=== PATIENT | male | born 1940 | race Caucasian/White ===

== ENCOUNTER 2016-08-06 10:54 | Inpatient (IN) | payer OTHER, MEDICARE ==
[2016-08-06] VITALS (17 sets, daily range): BP systolic 122–180; BP diastolic 58–85; PULSE 65–80; RESP 18–31; TEMP 97.9; O2SAT 94–99
[~2016-08-06] VITALS: Ht 177.8 cm; Wt 86.5 kg
[~2016-08-06 10:54] MED LIST: AMLO10 PO; ASPI81 PO; ATEN1TAB74 PO; FENO160T2 OR; GLIP5 PO; TERA5CAP34 PO; VENTAER INH
[2016-08-06] MEDS ORDERED: SODIUM CHLOR 0.9% 1000 ML INJ 1,000 ML IV ONE (11:05)
--- NOTE | 2016-08-06 11:09 | PD ---
HPI Chief Complaint: stroke alert Time Seen by Provider: 11:02 Travel History International Travel<30 days: No Contact w/Intl Traveler<30days: No Traveled to known affect area: No History of Present Illness HPI This is a 75-year-old male with a history of BPH, hypertension, diabetes mellitus, who presents here as a stroke alert. The patient was last seen between 9929 normal. The patient presents today with a right sided facial droop with dysarthria. There is no extremity weakness. There are no other reported deficits. 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) Glaucoma: No Genitourinary: Yes (ENLARGED PROSTATE) Headaches: Yes (STRESS MIGRAINES) Hepatitis: No Hiatal Hernia: No Hypertension: Yes Immune Disorder: No Kidney Stones: No Musculoskeletal: Yes (RECENT FALL/ TRAUMA--BACK PAIN/ RT SHOULDER PAIN) Neurologic: No Psychiatric: No Reproductive: Yes (vasectomy) Respiratory: Yes (SLEEP APNEA/ CPAP) Immunizations Current: Yes Myocardial Infarction: No Radiation Therapy: No Renal Failure: No Seizures: No Sickle Cell Disease: No Sleep Apnea: Yes Past Surgical History Abdominal Surgery: Yes (APPENDECTOMY) AICD: No Appendectomy: Yes (1982) Cardiac Surgery: No Ear Surgery: No Endocrine Surgery: No Eye Surgery: No Genitourinary Surgery: Yes (VASECTOMY, CYST REMOVED) Gynecologic Surgery: No Joint Replacement: No Oral Surgery: No Pacemaker: No Thoracic Surgery: No Other Surgery: Yes (right wrist plate in placed) Social History Alcohol Use: No Tobacco Use: No (NEVER) Substance Use: No Allergies-Medications (Allergen,Severity, Reaction): Coded Allergies: Codeine (Verified Allergy, Severe, Rash, 05/05/15) DENIES ALLERGY 07/05/12 Verapamil (Unverified Allergy, Severe, causes ileus, 05/05/15) Reported Meds & Prescriptions Reported Meds & Active Scripts Active Reported Trulicity Inj (Dulaglutide Inj) 0.75 Mg/0.5 Ml Pen 0.75 Mg SQ Q7D Bydureon Pen Inj (Exenatide) 2 Mg Pfpen 2 Mg SQ Q7D Aspirin 81 Mg Chew 81 Mg CHEW DAILY Enalapril (Enalapril Maleate) 20 Mg Tab 20 Mg PO BID Terazosin (Terazosin HCl) 5 Mg Cap 5 Mg PO HS Atenolol 50 Mg Tab 50 Mg PO BID Glipizide 10 Mg Tab 10 Mg PO BIDAC Take 30 minutes before a meal Amlodipine (Amlodipine Besylate) 10 Mg Tab 10 Mg PO DAILY Fenofibrate 160 Mg Tab 160 Mg PO DAILY Review of Systems Except as stated in HPI: all other systems reviewed are Neg General / Constitutional: No: Fever, Chills HENT: No: Headaches, Neck Pain Cardiovascular: No: Chest Pain or Discomfort, Syncope Respiratory: No: Cough, Shortness of Breath Gastrointestinal: No: Nausea, Vomiting, Abdominal Pain Musculoskeletal: No: Limited ROM, Pain Neurologic: Positive: Other (right sided facial droop with dysarthria), No: Syncope, Headache, Incontinence, Seizures Physical Exam Narrative GENERAL: Well-developed well-nourished male in no acute respiratory distress. SKIN: Focused skin assessment warm/dry. HEAD: Atraumatic. Normocephalic. EYES: No scleral icterus. No injection or drainage. ENT: No nasal bleeding or discharge. Mucous membranes pink and moist. Patient has obvious right sided facial droop. NECK: Trachea midline. Supple. CARDIOVASCULAR: Regular rate and rhythm. No murmur appreciated. RESPIRATORY: No accessory muscle use. Clear to auscultation. Breath sounds equal bilaterally. GASTROINTESTINAL: Abdomen soft, non-tender, nondistended. Hepatic and splenic margins not palpable. MUSCULOSKELETAL: No obvious deformities. No clubbing. No cyanosis. No edema. NEUROLOGICAL: Awake and alert. Right sided facial droop. There is dysarthria/ difficulty speaking. The patient has no weakness in his bilateral upper and lower extremities. Data Data Last Documented VS Vital Signs Date Time Temp Pulse Resp B/P Pulse Ox O2 Delivery O2 Flow Rate FiO2 08/06/16 11:25 75 18 160/70 98 Nasal Cannula 2 08/06/16 11:05 97.9 Orders Diet Npo (08/06/16 Lunch) Activity Bed Rest (08/06/16 ) Electrocardiogram (08/06/16 ) I-Stat Creatinine (08/06/16 11:05) I-Stat Profile (08/06/16 11:05) Prothrombin Time / Inr (Pt) (08/06/16 11:05) Act Partial Throm Time (Ptt) (08/06/16 11:05) Complete Blood Count With Diff (08/06/16 11:05) Fibrinogen (08/06/16 11:05) Creatine Kinase (Cpk) (08/06/16 11:05) Troponin I (08/06/16 11:05) Ua Includes Microscopic (08/06/16 11:05) Drug Screen, Random Urine (08/06/16 11:05) Type And Screen (08/06/16 11:05) Ct Brain W/O Iv Contrast(Rout) (08/06/16 ) Consult Neurology (08/06/16 ) Blood Glucose (08/06/16 11:05) Ecg Monitoring (08/06/16 11:05) Neuro Checks Q2HX12,Q4H (08/06/16 11:05) Nursing Bedside Swallow Assess .ONCE (08/06/16 11:05) Iv Access Insert/Monitor (08/06/16 11:05) NPO (08/06/16 11:05) Oximetry (08/06/16 11:05) Oxygen Administration (08/06/16 11:05) Sodium Chlor 0.9% 1000 Ml Inj (Ns 1000 M (08/06/16 11:05) Resp Oxygen Manas C Titrat 1-4 L (08/06/16 11:05) Cath For Specimen (08/06/16 11:05) (Hub Use Only)Inp Phy Cons/Ref (08/06/16 ) ^ Call Pharmacy (08/06/16 11:13) Nih Stroke Scale - Nihss .ONCE (08/06/16 11:13) Urinary Catheter Insert/Apply (08/06/16 11:13) Anticoagulant Alert (08/06/16 11:13) ^ Post Infusion Restrictions (08/06/16 11:13) ^ Medication Alert (08/06/16 11:13) Vital Signs (Adult) .As directed (08/06/16 11:13) Notify Dr: Blood Pressure (08/06/16 11:13) ^ Medication Alert (08/06/16 11:13) Alteplase Bolus (Activase Bolus) (08/06/16 11:15) Alteplase Drip (Activase Drip) (08/06/16 11:15) Sodium Chloride 0.9% Inj (Ns Inj) (08/06/16 11:15) [facility] Nursing Information (08/06/16 11:15) Resp Oxygen Manas C Titrat 1-4 L (08/06/16 ) Admit Order (Ed Use Only) (08/06/16 11:32) Labs Laboratory Tests Test 08/06/16 10:57 White Blood Count 8.3 TH/MM3 Red Blood Count 5.23 MIL/MM3 Hemoglobin 14.6 GM/DL Bedside Hemoglobin 14.3 G/DL Hematocrit 42.7 % Bedside Hematocrit 42.0 % Mean Corpuscular Volume 81.7 FL Mean Corpuscular Hemoglobin 28.0 PG Mean Corpuscular Hemoglobin 34.3 % Concent Red Cell Distribution Width 14.7 % Platelet Count 250 TH/MM3 Mean Platelet Volume 8.1 FL Neutrophils (%) (Auto) 67.9 % Lymphocytes (%) (Auto) 24.1 % Monocytes (%) (Auto) 6.3 % Eosinophils (%) (Auto) 1.3 % Basophils (%) (Auto) 0.4 % Neutrophils # (Auto) 5.6 TH/MM3 Lymphocytes # (Auto) 2.0 TH/MM3 Monocytes # (Auto) 0.5 TH/MM3 Eosinophils # (Auto) 0.1 TH/MM3 Basophils # (Auto) 0.0 TH/MM3 CBC Comment DIFF FINAL Differential Comment Prothrombin Time 10.0 SEC Prothromb Time International 0.9 RATIO Ratio Activated Partial 24.1 SEC Thromboplast Time Fibrinogen 383 mg/dL Bedside Sodium 139 MMOL/L Bedside Potassium 3.9 MMOL/L Bedside Chloride 104 MMOL/L Bedside Blood Urea Nitrogen 17 MG/DL Bedside Creatinine 1.0 MG/DL Bedside Glucose 352 MG/DL Hemoglobin A1c 11.9 % Total Creatine Kinase 79 U/L Troponin I LESS THAN 0.02 NG/ML Blood Type O POSITIVE Antibody Screen NEGATIVE Blood Bank Comment [facility] Medical Screen Exam Complete: Yes Emergency Medical Condition: Yes Differential Diagnosis CVA versus Nguyen's palsy versus medical management Narrative Course 75-year-old male presents as a stroke alert. Patient was last seen at between 9 and 9:30. Patient presented with right facial droop and dysarthria. The patient's CT scan was negative and he met criteria for TPA. After informed consent with Dr. Weeks, the patient was given TPA. He'll be admitted to the ICU. The case was discussed with Dr. Farias, biomedical electronics technician. Critical Care Narrative Aggregate critical care time was 60 minutes. Time to perform other separately billable procedures was not included in the critical care time. My time did not include minutes spent treating any other patients simultaneously or on activities that did not directly contribute to the patient's treatment. The services I provided to this patient were to treat and/or prevent clinically significant deterioration that could result in: I provided critical care services requiring my management, as noted below: Chart data review, documentation time, medication orders and management, vital sign assessments/reviewing monitor data, ordering and reviewing lab tests, ordering and interpreting/reviewing x-rays and diagnostic studies, care of the patient and discussion of the patient with the admitting physicians. Stroke Alert NIHSS NIH Stroke Scale Result: 5 NIHSS Time Completed: 10:54 Diagnosis Diagnosis: Primary Impression: Acute CVA (cerebrovascular accident) Additional Impressions: Hypertension Qualified Code: I10 - Essential hypertension Diabetes mellitus Qualified Code: E11.8 - Type 2 diabetes mellitus with complication, with long- term current use of insulin BPH (benign prostatic hyperplasia) Qualified Code: N40.0 - Benign prostatic hyperplasia, presence of lower urinary tract symptoms unspecified Dyslipidemia Admitting Physician Requests: Admit Aaron Sweeney MD Aug 06, 2016 11:09
[2016-08-06] MEDS ORDERED: ALTEPLASE DRIP IV ONE (11:15)
[2016-08-06] MEDS ORDERED: SODIUM CHLORIDE 0.9% 50 ML BAG IVF ONE (11:15)
[2016-08-06] MEDS ORDERED: MISCELLANEOUS NURSING INFORMATION XX PRN (11:15)
[2016-08-06] MEDS ORDERED: ALTEPLASE BOLUS 9 MG/9 ML SYR IV ONE (11:15)
--- NOTE | 2016-08-06 11:16 | RADRPT ---
EXAM DATE/TIME: 08/06/2016 11:07 [facility] COMPARISON: No previous studies available for comparison. INDICATIONS : Right facial droop RADIATION DOSE: 38.71 CTDIvol (mGy) The results were personally relayed by Dr. Adams Garcia to Dr. Ash Weeks at 11: 07 AM. While the patient was in the scanner MEDICAL HISTORY : Diabetes mellitus type 2. Hypertension. SURGICAL HISTORY : None. ENCOUNTER: Initial ACUITY: 1 day PAIN SCALE: 0/10 LOCATION: cranial TECHNIQUE: Multiple contiguous axial images were obtained of the head. Using automated exposure control and adj ustment of the mA and/or kV according to patient size, radiation dose was kept as low as reasonably a chievable to obtain optimal diagnostic quality images. FINDINGS: CEREBRUM: The ventricles are normal for age. No evidence of midline shift, mass lesion, hemorrhage or acute in farction. No extra-axial fluid collections are seen. POSTERIOR FOSSA: The cerebellum and brainstem are intact. The 4th ventricle is midline. The cerebellopontine angle i s unremarkable. EXTRACRANIAL: The visualized portion of the orbits is intact. SKULL: The calvaria is intact. No evidence of skull fracture. CONCLUSION: 1. No acute intracranial abnormality. Leif Garcia MD on August 06, 2016 at 11:13 Board Certified Radiologist. This report was verified electronically.
[2016-08-06 11:20] LABS: I-STAT POTASSIUM 3.9 MMOL/L (3.5-4.9); I-STAT SODIUM 139 MMOL/L (138-146)
[2016-08-06 11:24] LABS: AUTOMATED NEUTROPHIL # 5.6 TH/MM3 (1.8-7.7); BASOPHIL % 0.4 % (0.0-2.0); EOSINOPHIL # 0.1 TH/MM3 (0-0.4); EOSINOPHIL % 1.3 % (0.0-4.0); HEMATOCRIT 42.7 % (39.0-51.0); HEMO FLAGS DIFF FINAL; LYMPH % 24.1 % (9.0-44.0); MEAN CELL VOLUME 81.7 FL (80.0-100.0); MEAN CORPUSCULAR HGB CONC 34.3 % (32.0-36.0); MONO % 6.3 % (0.0-8.0); NEUT % 67.9 % (16.0-70.0); PLATELET COUNT 250 TH/MM3 (150-450); RED BLOOD COUNT 5.23 MIL/MM3 (4.50-5.90); RED CELL DISTRIBUTION WIDTH 14.7 % (11.6-17.2); WHITE BLOOD COUNT 8.3 TH/MM3 (4.0-11.0)
[2016-08-06 11:27] LABS: APTT (PATIENT) 24.1 SEC (24.3-30.1); INTERNATIONAL NORMALIZED RATIO 0.9 RATIO
[2016-08-06] MEDS: SODIUM CHLOR 0.9% 1000 ML INJ 1,000 ML IV SCH (11:37)
[2016-08-06 11:38] LABS: CREATINE KINASE 79 U/L (39-308)
[2016-08-06] MEDS ORDERED: FENO160T PO (11:43)
[2016-08-06] MEDS ORDERED: ENAL20TA PO (11:43)
[2016-08-06] MEDS ORDERED: ASPI81CH CHEW (11:43)
[2016-08-06] MEDS ORDERED: TERA5CAP3 PO (11:43)
[2016-08-06] MEDS ORDERED: ATEN50TA PO (11:43)
[2016-08-06] MEDS ORDERED: DULA10IN SQ (11:43)
[2016-08-06] MEDS ORDERED: EXEN1INJ SQ (11:43)
[2016-08-06] MEDS ORDERED: GLIP10TA6 PO (11:43)
[2016-08-06] MEDS ORDERED: AMLO10TA2 PO (11:43)
[2016-08-06] MEDS ORDERED: CLEVIDIPINE INJ 50 ML IV SCH (11:45)
[2016-08-06] MEDS ORDERED: LABETALOL HCL 100 MG/20 ML VIAL IV PRN (11:45)
[2016-08-06] MEDS ORDERED: NITROGLYCERIN 2% OINT 1 GM PACKET TOPICAL PRN (11:45)
[2016-08-06] MEDS ORDERED: hydrALAZINE HCL 20 MG/ML VIAL IV PUSH PRN (11:45)
--- NOTE | 2016-08-06 11:52 | HHI.HP ---
HPI Service Critical Care Medicine Primary Care Physician Unknown Admission Diagnosis Acute CVA, Diabetes mellitus, HTN, Diagnosis: (1) Facial droop due to stroke Diagnosis: Principal (2) Dysarthria Diagnosis: Principal (3) Migraine headache Diagnosis: Secondary (4) Hypertension Diagnosis: Principal (5) Dyslipidemia Diagnosis: Principal (6) Obesity Diagnosis: Principal (7) Obstructive sleep apnea Diagnosis: Principal (8) Diabetes mellitus Diagnosis: Principal (9) Hyperglycemia Diagnosis: Principal (10) BPH (benign prostatic hyperplasia) Diagnosis: Principal Chief Complaint: Right facial droop/dysarthria Travel History International Travel<30 Days: No Contact w/Intl Traveler <30 Da: No Traveled to Known Affected Are: No History of Present Illness This is a 75-year-old male. Date of admission 08/06/2016. Past medical history includes diabetes mellitus, hypertension, migraine headache, obstructive sleep apnea on CPAP, BPH, dyslipidemia. He is a Jehovah witness. He presents to [facility] on 08/06 with an acute onset right-sided facial droop /dysarthria at home. He also noticed some paresthesias on his left cheek below the eye. Stroke alert was called. NIH score was 5 for facial droop, dysarthria paresthesias. Laboratory significant for blood sugar 352. Initial CT head revealed no acute intracranial findings. Neurology was notified/Dr. Weeks and alteplase 7.9 mg bolus followed by 71.1 mg provided. MRI/A of brain and carotid Dopplers On presentation, patient does have no visual field cut, obvious right facial droop with dysarthria and left facial numbness. No cerebellar or posterior circulation signs. Review of Systems Constitutional: COMPLAINS OF: Weight loss, DENIES: Fatigue, Fever, Weight gain Endocrine: COMPLAINS OF: Polyuria, DENIES: Polydipsia Eyes: DENIES: Blurred vision, Eye pain, Vision loss Ears, nose, mouth, throat: DENIES: Tinnitus, Hearing loss Respiratory: DENIES: Sputum production, Shortness of breath Cardiovascular: DENIES: Chest pain Gastrointestinal: DENIES: Abdominal pain Genitourinary: DENIES: Urgency Musculoskeletal: COMPLAINS OF: Joint pain, DENIES: Back pain Integumentary: DENIES: Nail changes Hematologic/lymphatic: DENIES: Bruising Immunologic/allergic: DENIES: Eczema Neurologic: COMPLAINS OF: Localized weakness, Speech Problems Psychiatric: DENIES: Confusion, Depression Past Family Social History Allergies: Coded Allergies: Codeine (Verified Allergy, Severe, Rash, 05/05/15) DENIES ALLERGY 07/05/12 Verapamil (Unverified Allergy, Severe, causes ileus, 05/05/15) Past Medical History Migraine headache Hypertension Obesity BPH Obstructive sleep apnea on CPAP Diabetes mellitus Dyslipidemia Past Surgical History Appendectomy Vasectomy/cyst Right wrist plate Reported Medications Terazosin 5 mg by mouth daily Atenolol 50 mill grams by mouth twice a day Norvasc 10 mg by mouth daily Enalapril 20 mg by mouth twice a day Fenofibrate 160 mg by mouth daily Trulicity 0.75 mg subcutaneous every 7 days Aspirin 81 mg by mouth daily Glipizide 10 mg by mouth twice a day Bydurean 2 mg subcutaneous every 7 days Active Ordered Medications Reviewed in EMR Family History Brother age 65 of [place]. One brother with PFO One sister with atrial fibrillation Positive cancer Social History No tobacco, alcohol or IV drug use Physical Exam Vital Signs Vital Signs Date Time Temp Pulse Resp B/P Pulse Ox O2 Delivery O2 Flow Rate FiO2 08/06/16 11:40 75 18 157/73 98 08/06/16 11:25 75 18 160/70 98 Nasal Cannula 2 08/06/16 11:19 97 Nasal Cannula 08/06/16 11:19 77 18 160/70 97 2 08/06/16 11:08 80 97 Room Air 08/06/16 11:05 97.9 80 18 177/85 97 Physical Exam GENERAL: 75-year-old male, critically ill currently resting in bed in no acute distress SKIN: Warm and dry. No rash HEAD: Atraumatic. Normocephalic. EYES: Pupils equal and round about 3 mm bilaterally and reactive. No scleral icterus. No injection or drainage. ENT: No nasal bleeding or discharge. Mucous membranes pink and moist. NECK: Trachea midline. No JVD. CARDIOVASCULAR: Regular rate and rhythm. S1, S2. No S4. RESPIRATORY: No accessory muscle use. Clear to auscultation. Breath sounds equal bilaterally. GASTROINTESTINAL: Abdomen soft, non-tender, nondistended. Hepatic and splenic margins not palpable. MUSCULOSKELETAL: Extremities without skin peripheral edema. No obvious deformities. NEUROLOGICAL: Awake and alert. Cranial nerve VII deficit. Right facial droop/ left skin paresthesias below the eye. Motor grossly within normal limits bilateral upper lower extremity's. No dysdiadochokinesis or dysmentia. No pronator drift. Normal [id number] bilaterally. DTRs equal and symmetric bilaterally. Gait was not assessed. Slurred speech. PSYCHIATRIC: Appropriate mood and affect; insight and judgment normal. Laboratory Laboratory Tests Test 08/06/16 10:57 White Blood Count 8.3 Red Blood Count 5.23 Hemoglobin 14.6 Bedside Hemoglobin 14.3 Hematocrit 42.7 Bedside Hematocrit 42.0 Mean Corpuscular Volume 81.7 Mean Corpuscular Hemoglobin 28.0 Mean Corpuscular Hemoglobin 34.3 Concent Red Cell Distribution Width 14.7 Platelet Count 250 Mean Platelet Volume 8.1 Neutrophils (%) (Auto) 67.9 Lymphocytes (%) (Auto) 24.1 Monocytes (%) (Auto) 6.3 Eosinophils (%) (Auto) 1.3 Basophils (%) (Auto) 0.4 Neutrophils # (Auto) 5.6 Lymphocytes # (Auto) 2.0 Monocytes # (Auto) 0.5 Eosinophils # (Auto) 0.1 Basophils # (Auto) 0.0 CBC Comment DIFF FINAL Differential Comment Prothrombin Time 10.0 Prothromb Time International 0.9 Ratio Activated Partial 24.1 Thromboplast Time Fibrinogen 383 Bedside Sodium 139 Bedside Potassium 3.9 Bedside Chloride 104 Bedside Blood Urea Nitrogen 17 Bedside Creatinine 1.0 Bedside Glucose 352 Total Creatine Kinase 79 Troponin I LESS THAN 0.02 Result Diagram: 08/06/16 1057 Imaging Last Impressions Head CT 08/06/16 0000 Signed Impressions: Service Date/Time: July 11:07 - CONCLUSION: 1. No acute intracranial abnormality. Leif Garcia MD Assessment and Plan Assessment and Plan Neuro/Psych: Likely CVA Right facial droop/dysarthria History of migraine headache Dr. Weeks/neurology following Status post alteplase and 0.9 mg in ED followed by 71.1 mg On admission revealed no acute intracranial findings. No CTA head secondary to NIH score of less than 6 on arrival MRI/MRA brain along with carotid Dopplers ordered for today Neurochecks per protocol Goal to keep systolic blood pressure less than 180/diastolic less than 105 status post alteplase Lipid panel, hemoglobin A1c pending Echocardiogram ordered Follow-up head CT 24 hours post alteplase 1125 6/23 or earlier if indicated PT/OT/ST evaluate and treat CV: Hypertension Dyslipidemia Goal keep systolic blood pressure less than 180, diastolic blood pressure less than 105 status post alteplase As needed labetalol 10 mg every hour/hydralazine 10 every hour and Cleviprex drip written Noted allergy to verapamil/no Cardene 2-D echocardiogram ordered Lipid panel ordered Home medications atenolol 50 mg twice a day, Norvasc, 10 mg daily, enalapril 20 mg twice a day for hypertension along with Terazosin 5 mill grams by mouth daily Home medication fenofibrate 160 mg by mouth daily for dyslipidemia Holding baby aspirin 81 mg daily status post alteplase 24 hours. Resp: Obstructive sleep apnea on CPAP at night Family to bring in machine overnight. Settings of 4 Nasal cannula to maintain saturations greater than equal to 90% Incentive spirometry while awake GI: Currently nothing by mouth Protonix for GI prophylaxis Gena-Colace for bowel regimen : BPH Barajas catheter if indicated Holding terazosin 5 mill grams by mouth daily for BPH Endo: Diabetes mellitus Hyperglycemia Will hold long-acting insulins including trulicity 0.75 mg every 7 days and Bydurean 2 mill grams subcutaneous every 7 days Holding glipizide 10 mg by mouth twice a day Sliding-scale insulin to maintain euglycemia Renal: Monitor urine output Accurate I's and O's Follow BMP in a.m. Heme: CBC/coags within normal limits Recheck in a.m. status post alteplase ID: Monitor for infection/fever/elevated WBC FEN: Replace electrolytes as clinically indicated MSK: PT/OT/ST evaluate and treat Access - Utilize peripheral IV. Central line if indicated Prophylaxis - GI - Protonix - DVT - SCD/pharmacological prophylaxis contraindicated status post alteplase Level III admit Code Status Full code Discussed Condition With Dr. Sweeney/ED physician. Patient. Care plan discussed and all questions answered. Problem Qualifiers (1) Migraine headache: Qualified Code: G43.909 - Migraine without status migrainosus, not intractable , unspecified migraine type (2) Hypertension: Qualified Code: I10 - Essential hypertension (3) Obesity: (4) Diabetes mellitus: Qualified Code: E11.8 - Type 2 diabetes mellitus with complication, with long- term current use of insulin (5) BPH (benign prostatic hyperplasia): Qualified Code: N40.0 - Benign prostatic hyperplasia, presence of lower urinary tract symptoms unspecified Johnathan Farias MD Aug 06, 2016 11:52
[2016-08-06] MEDS ORDERED: SODIUM CHLORIDE 0.9% FLUSH 5 ML FLUSH IV FLUSH PRN (12:00)
[2016-08-06] MEDS ORDERED: ACETAMINOPHEN 325 MG TAB PO PRN (12:00)
[2016-08-06] MEDS ORDERED: LACTULOSE SYRUP 20 GM/30 ML CUP PO PRN (12:00)
[2016-08-06] MEDS ORDERED: MAGNESIUM HYDROXIDE SUSP 30 ML CUP PO PRN (12:00)
[2016-08-06] MEDS ORDERED: GLUCAGON 1 MG/ML VIAL OTHER PRN ×2 (12:00)
[2016-08-06] MEDS ORDERED: MISCELLANEOUS NURSING INFORMATION XX SCH (12:00)
[2016-08-06] MEDS ORDERED: RESP: ALBUTEROL 2.5 MG/3 ML NEB (PRN) INH (12:00)
[2016-08-06] MEDS ORDERED: SENNOSIDES 8.6 MG TAB PO PRN (12:00)
[2016-08-06] MEDS ORDERED: DEXTROSE 50% IN WATER 50 ML VIAL(D50) IV PUSH PRN (12:00)
[2016-08-06] MEDS ORDERED: SODIUM CHLORIDE 0.9% FLUSH 10 ML FLUSH IV FLUSH PRN (12:00)
[2016-08-06] MEDS ORDERED: ONDANSETRON HCL 4 MG/2 ML VIAL IV PRN (12:00)
[2016-08-06] MEDS ORDERED: BISACODYL 10 MG SUPP RECTAL PRN (12:00)
[2016-08-06] MEDS ORDERED: CHLORHEXIDINE GLUCONATE 2 % 1 PACK (2 CLOTHS) TOP PRN (12:00)
--- NOTE | 2016-08-06 12:12 | MB ---
cc: IVORY MONACO M.D. DATE OF CONSULTATION 08/06/2016 REASON FOR CONSULTATION Stroke alert HISTORY OF PRESENT ILLNESS Mr. Mendez is a very pleasant 75-year-old right-handed man who has a history of diabetes who was in his usual state of good health until around on 9:30 this morning when he acutely developed right facial weakness and severe slurred speech. He did not have any weakness of the arms or leg. He called 9-- immediately and a stroke alert was called in the field. He was brought immediately to the ER. He has had no changes in his symptoms since presentation. He denies any previous history of stroke or TIA symptoms. He states he does not take any anticoagulation. He only takes a low-dose aspirin 81 mg daily. PAST MEDICAL HISTORY 1. History of hypertension. 2. History of diabetes. 3. BPH 4. Appendectomy 5. Vasectomy MEDICATIONS Medications at home are: 1. Glipizide 5 mg b.i.d. 2. Fenofibrate 160 mg daily 3. Aspirin 81 mg daily 4. Hytrin 5 mg daily 5. Tenormin 50- daily 6. Norvasc 10 mg daily NEUROLOGIC EXAMINATION Blood pressure 177/85, pulse 80, respiratory rate is 18, temperature 97.9 degrees. Higher cortical function, he is alert. His speech is very dysarthric, but not aphasic. He can follow commands. Cranial nerves: He has got a right upper motor neuron VII palsy. The extraocular movements are normal. The pupils equal and reactive. Tongue protrudes midline. On motor exam, he has got 5/5 strength of all groups in both upper and lower extremities. There is no drift. Fine motor skills are normal. Reflexes 2+ and symmetric. CT of the brain, no acute change. LABORATORY DATA Currently pending, his glucose was over 300. IMPRESSION Acute left hemisphere stroke. The patient in a candidate for IV tPA. He is within the time frame. His NIH stroke scale is 5. I discussed the pros and cons of tPA with the patient including a 6% chance of hemorrhage. Patient understands the risks and benefits and states that he does wish to proceed with tPA and he does want us to administer it. Therefore would recommend starting IV tPA per protocol. Because of the relative low NIH stroke scale, he is not a candidate for evaluation for intervention, therefore, we do not need to proceed with a stat CTA at the present time. We will continue the post TPA monitoring, monitoring the blood pressure very carefully and neuro checks. No antiplatelets or anticoagulants for 24 hours post tPA. We will check CT of the brain 24 is post tPA and also further evaluation with an MRI/MRA brain, carotid ultrasound, echocardiogram and monitor cardiac telemetry and also check lipid panel. MD MICHELLE Dudley/CARLOS /11:22 AM /12:06 PM
--- NOTE | 2016-08-06 12:39 | RADRPT ---
EXAM DATE/TIME: 08/06/2016 12:02 [facility] COMPARISON: No previous studies available for comparison. INDICATIONS : Cerebrovascular accident. MEDICAL HISTORY : Hypertension. Stress migraines. Chest pain. Sleep apnea. Dyspnea. Verapimil induced ilius. Enlarg ed prostate. Diabetes. Anxiety. SURGICAL HISTORY : Appendectomy. Vasectomy. Right wrist with plate. ENCOUNTER: Initial ACUITY: 1 day PAIN SCORE: 0/10 LOCATION: Bilateral neck PEAK SYSTOLIC VELOCITIES (cm/sec): ICA/CCA RATIO: Right: 1.2 Left: 1.1 ICA: Right: 113 Left: 79 CCA: Right: 94 Left: 70 ECA: Right: 100 Left: 124 VERTEBRAL: Right: 52 antegrade Left: 48 antegrade Elevated flow velocities and ICA/CCA ratios have been found to correlate with increased degrees of vessel stenosis, calculated as percentage of diameter relative to a normal segment of distal ICA/CCA FINDINGS: RIGHT CAROTID: No significant stenosis is visualized. There is mild calcified plaque in the carotid bulb. The wavef orms are within normal limits. LEFT CAROTID: No significant stenosis is visualized. There is mild calcified plaque in the carotid bulb. The wavef orms are within normal limits. VERTEBRAL ARTERIES: Antegrade flow is seen in both vertebral arteries. MISCELLANEOUS: None. CONCLUSION: 1. Mild calcified plaque in the carotid bulbs bilaterally. No significant stenosis is present within either internal carotid artery. 2. There is antegrade flow within both vertebral arteries. Jevon Anaya MD on August 06, 2016 at 12:34 Board Certified Radiologist. This report was verified electronically.
--- NOTE | 2016-08-06 14:24 | EKG ---
Date Performed: 08/06/2016 Time Performed: 11:19:56 PTAGE: 75 years EKG: Sinus rhythm WITH OCCASIONAL SUPRAVENTRICULAR PREMATURE COMPLEXES RIGHT BUNDLE BRANCH BLOCK ABNORMAL ECG Compared to PREVIOUS TRACING , the right bundle branch block is new and the PACs are new. PREVIOUS TR ACIN07/06/2012 10.16 DOCTOR: Tiffany Haider Interpretating Date/Time 08/06/2016 14:23:45
[2016-08-06] MEDS: ACETAMINOPHEN 1000 MG/100 ML VIAL IV PRN (14:37)
--- NOTE | 2016-08-06 15:27 | ECHRPT ---
Indication: CVA CONCLUSIONS Normal left ventricular size and wall thickness. The left ventricular systolic function is normal with an estimated ejection fraction in the range of 55-60%. Trace aortic valve regurgitation. There is trace tricuspid valve regurgitation. BP: 160 / 70 HR: 77 Rhythm: MEASUREMENTS (Male / Female) Normal Values Technical Quality: 2D ECHO LV Diastolic Diameter PLAX 4.8 cm 4.2 - 5.9 / 3.9 - 5.3 cm LV Systolic Diameter PLAX 3.6 cm IVS Diastolic Thickness 1.4 cm 0.6 - 1.0 / 0.6 - 0.9 cm LVPW Diastolic Thickness 1.3 cm 0.6 - 1.0 / 0.6 - 0.9 cm LV Relative Wall Thickness 0.6 RV Internal Dim ED PLAX 3.0 cm M-MODE Aortic Root Diameter MM 4.4 cm LA Systolic Diameter MM 4.4 cm LA Ao Ratio MM 1.0 AV Cusp Separation MM 2.4 cm DOPPLER Mitral E Point Velocity 70.1 cm/s Mitral A Point Velocity 79.0 cm/s Mitral E to A Ratio 0.9 LV E' Lateral Velocity 8.7 cm/s Mitral E to LV E' Lateral Ratio 8.1 LV E' Septal Velocity 8.2 cm/s Mitral E to LV E' Septal Ratio 8.6 FINDINGS LEFT VENTRICLE Normal left ventricular size and wall thickness. The left ventricular systolic function is normal with an estimated ejection fraction in the range of 55-60%. RIGHT VENTRICLE Normal right ventricular size and systolic function. LEFT ATRIUM The left atrial size is normal. RIGHT ATRIUM The right atrial size is normal. ATRIAL SEPTUM Normal atrial septal thickness without atrial level shunting by limited color doppler interrogation. AORTA The aortic root and proximal ascending aorta are normal in size on limited imaging. MITRAL VALVE Structurally normal mitral valve. No mitral valve stenosis or regurgitation. AORTIC VALVE Trace aortic valve regurgitation. TRICUSPID VALVE There is trace tricuspid valve regurgitation. PULMONARY VALVE The pulmonary valve is not well visualized. VESSELS The inferior vena cava is normal in size. PERICARDIUM No pericardial effusion. Seven Saucedo MD (Electronically Signed) Final Date:06 August 2016 15:26
[2016-08-06] MEDS: INSULIN ASPART SUPPLEMENTAL SCALE SQ SCH ×2 (16:00→20:51)
[2016-08-06 16:28] LABS: HEMOGLOBIN A1a 1.7 %; HEMOGLOBIN A1b 1.2 %; HEMOGLOBIN Ao 73.3 %; HEMOGLOBIN F 2.8 %; HEMOGLOBIN LA1C 3.7 %; HEMOGLOBIN P3 5.5 %
--- NOTE | 2016-08-06 16:30 | RADRPT ---
EXAM DATE/TIME: 08/06/2016 15:27 [facility] COMPARISON: CT BRAIN W/O CONTRAST, August 06, 2016, 11:07. INDICATIONS : Stroke. Slurred speech and right sided paralysis. MEDICAL HISTORY : Hypertension. Diabetes mellitus type 2. SURGICAL HISTORY : Appendectomy. Vasectomy. ENCOUNTER: Initial ACUITY: 1 day PAIN SCORE: 0/10 LOCATION: Head. Please note a normal MRA of the brain does not entirely exclude the possibility of a small aneurysm, nor the possibility of distal intracranial vessel disease. TECHNIQUE: 3D time of flight MRA was performed. Source images, multiplanar STS MIP, and 3D volume MIP reconstru ctions were reviewed. FINDINGS: Both distal internal carotid arteries are widely patent. Vertebral patent. The basilar is patent. The examination demonstrates a hypoplastic A1 segment on the right. Anterior and middle cerebral circ ulation is otherwise normal in appearance. The posterior cerebral and the right originates from the P-comm. The left posterior cerebral originat es from the basilar. Both are widely patent. CONCLUSION: 1. Incidental anatomic variation otherwise no large or central vessel occlusion identified. Leif Garcia MD on August 06, 2016 at 16:26 Board Certified Radiologist. This report was verified electronically.
--- NOTE | 2016-08-06 17:03 | RADRPT ---
EXAM DATE/TIME: 08/06/2016 15:27 [facility] COMPARISON: MRA BRAIN W/O CONTRAST, August 06, 2016, 15:27. INDICATIONS : CVA. Slurred speech, right sided facial paralysis. MEDICAL HISTORY : Hypertension. Diabetes mellitus type 2. SURGICAL HISTORY : Appendectomy. Vasectomy. ENCOUNTER: Initial ACUITY: 1 day PAIN SCORE: 0/10 LOCATION: Head. TECHNIQUE: Multiplanar, multisequence MRI of the brain was performed without contrast. FINDINGS: There is a linear area of increased signal along the motor cortex on the left side characteristic of a small subacute infarct in the left frontoparietal region. No mass, hemorrhage or midline shift. No hydrocephalus. Minimal white matter ischemic change. No other areas of acute infarction. CONCLUSION: Small acute infarct in a linear orientation along the left frontoparietal motor region with a small punctate infarct in the adjacent deep white matter. No associated mass, hemorrhage or shift. Mild whi te matter ischemic changes. Anthony Boles MD on August 06, 2016 at 16:55 Board Certified Radiologist. This report was verified electronically.
[2016-08-06] MEDS: DOCUSATE SODIUM 50 MG/SENNA 8.6 MG TAB PO SCH (20:52)
[2016-08-06] MEDS: PRAVASTATIN SOD 40 MG TAB PO SCH (20:52)
[2016-08-06] MEDS: SODIUM CHLORIDE 0.9% FLUSH 5 ML FLUSH IV FLUSH SCH (20:52)
[2016-08-06] MEDS ORDERED: SODIUM CHLORIDE 0.9% FLUSH 10 ML FLUSH IV FLUSH SCH (21:00)
[2016-08-07] VITALS (13 sets, daily range): BP systolic 121–186; BP diastolic 58–84; PULSE 65–79; RESP 16–28; TEMP 97.2–98.3; O2SAT 93–97
[2016-08-07] MEDS: ACETAMINOPHEN 1000 MG/100 ML VIAL IV PRN ×2 (00:21→06:31)
[2016-08-07] MEDS: SODIUM CHLOR 0.9% 1000 ML INJ 1,000 ML IV SCH (03:30)
[2016-08-07] MEDS: CHLORHEXIDINE GLUCONATE 2 % 1 PACK (2 CLOTHS) TOP SCH (04:00)
[2016-08-07 06:01] LABS: APTT (PATIENT) 24.5 SEC (24.3-30.1); PROTHROMBIN TIME - PATIENT 10.8 SEC (9.8-11.6)
[2016-08-07 06:07] LABS: BASOPHIL % 0.3 % (0.0-2.0); EOSINOPHIL # 0.1 TH/MM3 (0-0.4); EOSINOPHIL % 0.6 % (0.0-4.0); HEMATOCRIT 40.6 % (39.0-51.0); HEMO FLAGS DIFF FINAL; LYMPH % 15.2 % (9.0-44.0); LYMPHOCYTE # 1.6 TH/MM3 (1.0-4.8); MEAN CELL VOLUME 80.8 FL (80.0-100.0); MEAN CORPUSCULAR HEMOGLOBIN 28.2 PG (27.0-34.0); MEAN CORPUSCULAR HGB CONC 34.9 % (32.0-36.0); NEUT % 76.9 % (16.0-70.0); PLATELET COUNT 248 TH/MM3 (150-450); RED BLOOD COUNT 5.02 MIL/MM3 (4.50-5.90); RED CELL DISTRIBUTION WIDTH 14.5 % (11.6-17.2); WHITE BLOOD COUNT 10.4 TH/MM3 (4.0-11.0)
[2016-08-07 06:28] LABS: ALT (GPT) 26 U/L (12-78); ANION GAP 12 MEQ/L (5-15); AST (GOT) 23 U/L (15-37); BLOOD UREA NITROGEN 12 MG/DL (7-18); CHLORIDE 109 MEQ/L (98-107); GLOMERULAR FILTRATION RATE 74 ML/MIN (>89); POTASSIUM 3.9 MEQ/L (3.5-5.1); SODIUM (NA) 141 MEQ/L (136-145)
[2016-08-07] MEDS: INSULIN ASPART SUPPLEMENTAL SCALE SQ SCH ×4 (06:28→22:09)
[2016-08-07 06:30] LABS: ALKALINE PHOSPHATASE 80 U/L (45-117); HDL CHOLESTEROL 28.5 MG/DL (40.0-60.0); LDL CHOLESTEROL 70 MG/DL (0-99); TOTAL BILIRUBIN ADULT 1.2 MG/DL (0.2-1.0)
--- NOTE | 2016-08-07 08:09 | HHI.PR ---
Review/Management Diagnosis Small left parietal stroke--clinically significantly improved after iv TPA Plan repeat CT brain 24 hr post TPA. If no hemorrhage, will start plavix 75 mg daily and asa 81 mg daily. continue to monitor telemetry to r/o afib. 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 Diagnosis/Plan: Subjective Subjective Comments No acute events reported He feels his speech has improved and feels more strength right facial muscles He denies weakness of arm or leg or focal numbness or tingling Active Medications Current Medications Medications (Trade) Dose Ordered Sig/Babak Route Start Time Stop Time Status Last Admin Miscellaneous Information No Heparin, Warfarin, Aspir... UNSCH PRN XX 08/06/16 11:15 08/07/16 11:14 (NS 1000 ml Inj) 1,000 ml @ 70 mls/hr [id number] IV 08/06/16 11:37 08/07/16 03:30 (Trandate Inj) 10 mg Q1H PRN IV 08/06/16 11:45 (Pravachol) 40 mg HS PO 08/06/16 21:00 (NovoLOG SUPPLEMENTAL SCALE) 1 ACHS SQ 08/06/16 16:00 08/07/16 06:28 (Apresoline Inj) 10 mg Q1H PRN IV PUSH 08/06/16 11:45 08/06/16 17:10 Nitroglycerin 2 inch 2 inch Q6H PRN TOPICAL 08/06/16 11:45 08/06/16 17:09 (Cleviprex Inj) 50 ml @ 0 mls/hr TITRATE IV 08/06/16 11:45 (NS Flush) 2 ml BID IV FLUSH 08/06/16 21:00 08/06/16 20:52 (NS Flush) 2 ml UNSCH PRN IV FLUSH 08/06/16 12:00 (D50w (Vial) Inj) 50 ml UNSCH PRN IV PUSH 08/06/16 12:00 (Glucagon Inj) 1 mg UNSCH PRN OTHER 08/06/16 12:00 (Zofran Inj) 4 mg Q6H PRN IV 08/06/16 12:00 08/07/16 05:58 Miscellaneous Information 1 Q361D XX 08/06/16 12:00 (Chlorhexidine 2% Cloth) 3 pack Taper DAILY@04 TOP 08/07/16 04:00 08/03/17 03:59 (Chlorhexidine 2% Cloth) 3 pack UNSCH PRN TOP 08/06/16 12:00 (Gena-Colace) 1 tab BID PO 08/06/16 21:00 (Milk Of Magnesia Liq) 30 ml Q12H PRN PO 08/06/16 12:00 (Senokot) 17.2 mg Q12H PRN PO 08/06/16 12:00 (Dulcolax Supp) 10 mg DAILY PRN RECTAL 08/06/16 12:00 (Lactulose Liq) 30 ml DAILY PRN PO 08/06/16 12:00 (D50w (Vial) Inj) 25 ml UNSCH PRN IV PUSH 08/06/16 12:00 (Glucagon Inj) 1 mg UNSCH PRN OTHER 08/06/16 12:00 (Ofirmev Inj) 650 mg Q6HR PRN IV 08/06/16 14:00 08/07/16 13:59 08/07/16 06:31 Allergies Allergies Coded Allergies Codeine (Verified Allergy, Severe, Rash, 05/05/15) Verapamil (Unverified Allergy, Severe, causes ileus, 05/05/15) Exam I&O / VS 08/06/16 08/06/16 08/07/16 15:00 23:00 07:00 Intake Total 624 ml 467 ml Output Total 400 ml 1350 ml 200 ml Balance -400 ml -726 ml 267 ml Intake IV Total 624 ml 467 ml Output Urine Total 400 ml 1350 ml 200 ml # Bowel Movements 0 0 Vital Signs Date Time Temp Pulse Resp B/P Pulse Ox O2 Delivery O2 Flow Rate FiO2 08/07/16 07:00 76 08/07/16 06:00 74 25 151/70 96 08/07/16 05:00 69 21 151/71 95 08/07/16 04:00 97.8 68 22 131/62 95 08/07/16 03:00 70 24 129/61 94 08/07/16 02:00 69 26 121/64 94 08/07/16 01:00 69 23 141/67 95 08/07/16 00:00 98.3 73 16 132/60 96 08/06/16 23:00 68 08/06/16 23:00 68 25 136/63 96 08/06/16 22:00 71 24 122/58 94 08/06/16 21:00 68 23 125/60 96 08/06/16 20:48 97 HOME CPAP 21 08/06/16 20:00 97.9 68 28 135/63 99 08/06/16 19:00 66 24 137/63 96 08/06/16 18:00 71 31 142/69 97 08/06/16 17:00 65 26 180/80 98 08/06/16 16:00 66 19 160/76 97 08/06/16 15:00 68 08/06/16 15:00 69 22 161/80 97 08/06/16 14:00 70 28 153/77 97 08/06/16 13:00 75 24 180/84 98 08/06/16 11:40 75 18 157/73 98 08/06/16 11:25 75 18 160/70 98 Nasal Cannula 2 08/06/16 11:19 97 Nasal Cannula 08/06/16 11:19 77 18 160/70 97 2 08/06/16 11:08 80 97 Room Air 08/06/16 11:05 97.9 80 18 177/85 97 08/06/16 11:00 96 Nasal Cannula 2.00 08/06/16 11:00 96 2.00 Exam Comments alert, oriented times 3. His speech remains dysarthric, but is much improved since yesterday. He has no evidence of aphasia with normal speech fluency and comprehension and makes no paraphasic errors and repeats normally CN--mild right upper motor neuron CN 7 palsey--but improved since yesterday. extra-occular motility is normal. pupils 2mm symmetric and reactive to light, tongue protrudes midline, normal facial sensation MOTOR --5/5 BUE and BLE. No drift. fine motor skills normal SENSORY--normal bilaterally DTR 1+ symmetric, no Babinski Objective Radiology Results MRI brain--small acute stroke left parietal area, Micro and Labs Laboratory Tests Test 08/06/16 08/06/16 08/07/16 10:57 13:30 05:11 White Blood Count 8.3 10.4 Red Blood Count 5.23 5.02 Hemoglobin 14.6 14.2 Bedside Hemoglobin 14.3 Hematocrit 42.7 40.6 Bedside Hematocrit 42.0 Mean Corpuscular Volume 81.7 80.8 Mean Corpuscular Hemoglobin 28.0 28.2 Mean Corpuscular Hemoglobin 34.3 34.9 Concent Red Cell Distribution Width 14.7 14.5 Platelet Count 250 248 Mean Platelet Volume 8.1 8.1 Neutrophils (%) (Auto) 67.9 76.9 Lymphocytes (%) (Auto) 24.1 15.2 Monocytes (%) (Auto) 6.3 7.0 Eosinophils (%) (Auto) 1.3 0.6 Basophils (%) (Auto) 0.4 0.3 Neutrophils # (Auto) 5.6 8.0 Lymphocytes # (Auto) 2.0 1.6 Monocytes # (Auto) 0.5 0.7 Eosinophils # (Auto) 0.1 0.1 Basophils # (Auto) 0.0 0.0 CBC Comment DIFF FINAL DIFF FINAL Differential Comment Prothrombin Time 10.0 10.8 Prothromb Time International 0.9 1.0 Ratio Activated Partial 24.1 24.5 Thromboplast Time Fibrinogen 383 Bedside Sodium 139 Bedside Potassium 3.9 Bedside Chloride 104 Bedside Blood Urea Nitrogen 17 Bedside Creatinine 1.0 Bedside Glucose 352 Hemoglobin A1c 11.9 Total Creatine Kinase 79 Troponin I LESS THAN 0.02 Blood Type O POSITIVE Antibody Screen NEGATIVE Blood Bank Comment Nasal Screen MRSA (PCR) MRSA NOT DETECTED Sodium Level 141 Potassium Level 3.9 Chloride Level 109 Carbon Dioxide Level 20.0 Anion Gap 12 Blood Urea Nitrogen 12 Creatinine 0.99 Estimat Glomerular Filtration 74 Rate Random Glucose 233 Calcium Level 9.2 Phosphorus Level 3.1 Magnesium Level 2.0 Total Bilirubin 1.2 Aspartate Amino Transf 23 (AST/SGOT) Alanine Aminotransferase 26 (ALT/SGPT) Alkaline Phosphatase 80 Total Protein 6.5 Albumin 3.2 Triglycerides Level 196 Cholesterol Level 138 LDL Cholesterol 70 HDL Cholesterol 28.5 Cholesterol/HDL Ratio 4.84 Diagnostic Tests ECHOCARDIOGRAM EF 55-60%, no sign of cardioembolic source. CAROTID US---no hemodynamically significant stenosis. Kike Weeks. PhD Aug 07, 2016 08:09
[2016-08-07] MEDS: DOCUSATE SODIUM 50 MG/SENNA 8.6 MG TAB PO SCH ×2 (09:00→22:06)
[2016-08-07] MEDS: SODIUM CHLORIDE 0.9% FLUSH 5 ML FLUSH IV FLUSH SCH ×2 (09:00→21:00)
[2016-08-07] MEDS ORDERED: ACETAMINOPHEN 325 MG TAB PO PRN (09:45)
--- NOTE | 2016-08-07 09:45 | HHI.CCPN ---
Subjective Remarks/Hospital Course This is a 75-year-old male. Date of admission 08/06/2016. Past medical history includes diabetes mellitus, hypertension, migraine headache, obstructive sleep apnea on CPAP, BPH, dyslipidemia. He is a Jehovah witness. He presents to [facility] on 08/[facility] with an acute onset right-sided facial droop /dysarthria at home. He also noticed some paresthesias on his left cheek below the eye. Stroke alert was called. NIH score was 5 for facial droop, dysarthria paresthesias. Laboratory significant for blood sugar 352. Initial CT head revealed no acute intracranial findings. Neurology was notified/Dr. Weeks and alteplase 7.9 mg bolus followed by 71.1 mg provided. MRI/A of brain and carotid Dopplers On presentation, patient does have no visual field cut, obvious right facial droop with dysarthria and left facial numbness. No cerebellar or posterior circulation signs. Subjective 08/07: Right facial weakness improved. Dysarthria much improved. Noted small left parietal CVA on MRI brain. Vasculature shows no focal stenosis. Plan for CT head at 11:30. Objective Vital Signs Date Time Temp Pulse Resp B/P Pulse Ox O2 Delivery O2 Flow Rate FiO2 08/07/16 07:00 76 08/07/16 06:00 25 151/70 96 08/07/16 04:00 97.8 08/06/16 20:48 HOME CPAP 21 08/06/16 11:25 2 Intake and Output 08/06/16 08/06/16 08/07/16 08:00 16:00 00:00 Intake Total 624 ml Output Total 400 ml 1350 ml Balance -400 ml -726 ml Result Diagram: 08/07/16 0511 08/07/16 0511 Imaging Last Impressions Head Magnetic Resonance Angiography 08/06/16 0000 Signed Impressions: Service Date/Time: July 15:27 - CONCLUSION: 1. Incidental anatomic variation otherwise no large or central vessel occlusion identified. Leif Garcia MD Head CT 08/06/16 0000 Signed Impressions: Service Date/Time: July 11:07 - CONCLUSION: 1. No acute intracranial abnormality. Leif Garcia MD Carotid Artery Ultrasound 08/06/16 0000 Signed Impressions: Service Date/Time: July 12:02 - CONCLUSION: 1. Mild calcified plaque in the carotid bulbs bilaterally. No significant stenosis is present within either internal carotid artery. 2. There is antegrade flow within both vertebral arteries. Jevon Anaya MD Brain MRI 08/06/16 0000 Signed Impressions: Service Date/Time: July 15:27 - CONCLUSION: Small acute infarct in a linear orientation along the left frontoparietal motor region with a small punctate infarct in the adjacent deep white matter. No associated mass , hemorrhage or shift. Mild white matter ischemic changes. Anthony Boles MD Objective Remarks GENERAL: 75-year-old male, critically ill currently resting in bed in no acute distress SKIN: Warm and dry. No rash HEAD: Atraumatic. Normocephalic. EYES: Pupils equal and round about 3 mm bilaterally and reactive. No scleral icterus. No injection or drainage. ENT: No nasal bleeding or discharge. Mucous membranes pink and moist. NECK: Trachea midline. No JVD. CARDIOVASCULAR: Regular rate and rhythm. S1, S2. No S4. RESPIRATORY: No accessory muscle use. Clear to auscultation. Breath sounds equal bilaterally. GASTROINTESTINAL: Abdomen soft, non-tender, nondistended. Hepatic and splenic margins not palpable. MUSCULOSKELETAL: Extremities without skin peripheral edema. No obvious deformities. NEUROLOGICAL: Awake and alert. Cranial nerve VII deficit. Right facial droop/ left skin paresthesias below the eye. Motor grossly within normal limits bilateral upper lower extremity's. No dysdiadochokinesis or dysmentia. No pronator drift. Normal [id number] bilaterally. DTRs equal and symmetric bilaterally. Gait was not assessed. Slurred speech. PSYCHIATRIC: Appropriate mood and affect; insight and judgment normal. A/P Assessment and Plan Neuro/Psych: Left frontal/parietal Right facial droop/dysarthria History of migraine headache Dr. Weeks/neurology following Status post alteplase and 0.9 mg in ED followed by 71.1 mg On admission revealed no acute intracranial findings. No CTA head secondary to NIH score of less than 6 on arrival MRI Brain revealed left frontoparietal infarct with small lacunar infarct in the deep white matter. 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 Hypoplastic A1 segment. Carotid ultrasound revealed carotid plaques bilaterally without focal hemodynamic stenosis. Neurochecks per protocol Goal to keep systolic blood pressure less than 180/diastolic less than 105 status post alteplase Lipid panel revealed checklist is 196. Hemoglobin A1c 11.9 Echocardiogram revealed EF 55-60%. No regional motion abnormality. Trace AR/TR Follow-up head CT 24 hours post alteplase 1125 08/07 pending PT/OT/ST evaluate and treat To admit for fever/pain CV: Hypertension Dyslipidemia Goal keep systolic blood pressure less than 180, diastolic blood pressure less than 105 status post alteplase As needed labetalol 10 mg every hour/hydralazine 10 every hour and Cleviprex drip written Noted allergy to verapamil/no Cardene 2-D echocardiogram as above. EF 55-6%. Lipid panel resume see above Home medications atenolol 50 mg twice a day, Norvasc, 10 mg daily, enalapril 20 mg twice a day for hypertension along with Terazosin 5 mill grams by mouth daily Home medication fenofibrate 160 mg by mouth daily for dyslipidemia. Added Pravachol 40 mg by mouth daily Holding baby aspirin 81 mg daily status post alteplase 24 hours. We'll start aspirin daily and Plavix [address] and if negative complete Consider LINQ monitoring outpatient cardiology consult for A. fib Resp: Obstructive sleep apnea on CPAP at night Family to bring in machine overnight. Settings of 4 Nasal cannula to maintain saturations greater than equal to 90% Incentive spirometry while awake GI: Currently nothing by mouth. Advanced post CT head Protonix for GI prophylaxis Gena-Colace for bowel regimen : BPH Barajas catheter if indicated Holding terazosin 5 mill grams by mouth daily for BPH Endo: Diabetes mellitus Hyperglycemia Will hold long-acting insulins including trulicity 0.75 mg every 7 days and Bydurean 2 mill grams subcutaneous every 7 days Holding glipizide 10 mg by mouth twice a day Sliding-scale insulin to maintain euglycemia Immobility and C-loop 0.9 Renal: Monitor urine output Accurate I's and O's Follow BMP in a.m. Heme: CBC within normal limits Recheck in a.m. status post alteplase ID: Monitor for infection/fever/elevated WBC FEN: Replace electrolytes as clinically indicated MSK: PT/OT/ST evaluate and treat Access - Utilize peripheral IV. Central line if indicated Prophylaxis - GI - Protonix - DVT - SCD/pharmacological prophylaxis contraindicated status post alteplase. Will initiate lovenox 24 hours post placed infusion if negative for hemorrhage Level II Johnathan Farias MD Aug 07, 2016 09:45
--- NOTE | 2016-08-07 11:59 | RADRPT ---
EXAM DATE/TIME: 08/07/2016 11:43 [facility] COMPARISON: No previous studies available for comparison. INDICATIONS : Acute CVA. Status post alteplase 24 hours. RADIATION DOSE: 36.25 CTDIvol (mGy) MEDICAL HISTORY : Cardiovascular disease. Hypertension. Diabetes mellitus type 2. SURGICAL HISTORY : Appendectomy. ENCOUNTER: Subsequent ACUITY: 2 days PAIN SCALE: 0/10 LOCATION: cranial TECHNIQUE: Multiple contiguous axial images were obtained of the head. Using automated exposure control and adj ustment of the mA and/or kV according to patient size, radiation dose was kept as low as reasonably a chievable to obtain optimal diagnostic quality images. DICOM format image data is available electro nically for review and comparison. FINDINGS: No mass, hemorrhage or midline shift. No symptoms. Previous small infarct seen in the left frontopari etal region on MRI demonstrates a small linear area of decreased attenuation on CT. No symptoms. No extra-axial fluid. No acute bony abnormalities. CONCLUSION: No mass, hemorrhage or shift. Area of infarction seen on MRI demonstrates a small linear area of decr eased attenuation in the left frontoparietal region. Anthony Boles MD on August 07, 2016 at 11:53 Board Certified Radiologist. This report was verified electronically.
--- NOTE | 2016-08-07 13:04 | PD.TRANSFR ---
Transfer Summary Admission Date Aug 06, 2016 at 11:36 Admitting Diagnosis Acute CVA, Diabetes mellitus, HTN, Diagnoses: (1) Facial droop due to stroke Diagnosis: Principal (2) Dysarthria Diagnosis: Principal (3) Migraine headache Diagnosis: Secondary (4) Hypertension Diagnosis: Principal (5) Dyslipidemia Diagnosis: Principal (6) Obesity Diagnosis: Principal (7) Obstructive sleep apnea Diagnosis: Principal (8) Diabetes mellitus Diagnosis: Principal (9) Hyperglycemia Diagnosis: Principal (10) BPH (benign prostatic hyperplasia) Diagnosis: Principal Significant Findings MRI brain with left frontoparietal CVA. Transfer Summary/Subjective No bleed status post alteplase. Likely will need outpatient pulmonary with cardiology implantable device/monitoring for atrial fibrillation per neurology recommendations. Objective Vital Signs Date Time Temp Pulse Resp B/P Pulse Ox O2 Delivery O2 Flow Rate FiO2 08/07/16 07:00 76 08/07/16 06:00 25 151/70 96 08/07/16 04:00 97.8 08/06/16 20:48 HOME CPAP 21 08/06/16 11:25 2 Intake and Output 08/06/16 08/06/16 08/06/16 07:59 15:59 23:59 Intake Total 624 ml Output Total 400 ml 1350 ml Balance -400 ml -726 ml Result Diagram: 08/07/16 0511 08/07/16 0511 Imaging Last Impressions Head Magnetic Resonance Angiography 08/06/16 0000 Signed Impressions: Service Date/Time: July 15:27 - CONCLUSION: 1. Incidental anatomic variation otherwise no large or central vessel occlusion identified. Leif Garcia MD Head CT 08/06/16 0000 Signed Impressions: Service Date/Time: July 11:07 - CONCLUSION: 1. No acute intracranial abnormality. Leif Garcia MD Carotid Artery Ultrasound 08/06/16 0000 Signed Impressions: Service Date/Time: July 12:02 - CONCLUSION: 1. Mild calcified plaque in the carotid bulbs bilaterally. No significant stenosis is present within either internal carotid artery. 2. There is antegrade flow within both vertebral arteries. Jevon Anaya MD Brain MRI 08/06/16 0000 Signed Impressions: Service Date/Time: July 15:27 - CONCLUSION: Small acute infarct in a linear orientation along the left frontoparietal motor region with a small punctate infarct in the adjacent deep white matter. No associated mass , hemorrhage or shift. Mild white matter ischemic changes. Anthony Boles MD Objective Remarks GENERAL: 75-year-old male, critically ill currently resting in bed in no acute distress SKIN: Warm and dry. No rash HEAD: Atraumatic. Normocephalic. EYES: Pupils equal and round about 3 mm bilaterally and reactive. No scleral icterus. No injection or drainage. ENT: No nasal bleeding or discharge. Mucous membranes pink and moist. NECK: Trachea midline. No JVD. CARDIOVASCULAR: Regular rate and rhythm. S1, S2. No S4. RESPIRATORY: No accessory muscle use. Clear to auscultation. Breath sounds equal bilaterally. GASTROINTESTINAL: Abdomen soft, non-tender, nondistended. Hepatic and splenic margins not palpable. MUSCULOSKELETAL: Extremities without skin peripheral edema. No obvious deformities. NEUROLOGICAL: Awake and alert. Cranial nerve VII deficit. Right facial droop/ left skin paresthesias below the eye. Motor grossly within normal limits bilateral upper lower extremity's. No dysdiadochokinesis or dysmentia. No pronator drift. Normal [id number] bilaterally. DTRs equal and symmetric bilaterally. Gait was not assessed. Slurred speech. PSYCHIATRIC: Appropriate mood and affect; insight and judgment normal. A/P Assessment and Plan Neuro/Psych: Left frontal/parietal Right facial droop/dysarthria History of migraine headache Dr. Weeks/neurology following Status post alteplase and 0.9 mg in ED followed by 71.1 mg On admission revealed no acute intracranial findings. No CTA head secondary to NIH score of less than 6 on arrival MRI Brain revealed left frontoparietal infarct with small lacunar infarct in the deep white matter. MRA brain revealed SKIVER HAND taking off repeat comp. Hypoplastic A1 segment. Carotid ultrasound revealed carotid plaques bilaterally without focal hemodynamic stenosis. Neurochecks per protocol Goal to keep systolic blood pressure less than 180/diastolic less than 105 status post alteplase Lipid panel revealed checklist is 196. Hemoglobin A1c 11.9 Echocardiogram revealed EF 55-60%. No regional motion abnormality. Trace AR/TR Follow-up head CT 24 hours post alteplase 1125 08/07 pending PT/OT/ST evaluate and treat To admit for fever/pain CV: Hypertension Dyslipidemia Goal keep systolic blood pressure less than 180, diastolic blood pressure less than 105 status post alteplase As needed labetalol 10 mg every hour/hydralazine 10 every hour and Cleviprex drip written Noted allergy to verapamil/no Cardene 2-D echocardiogram as above. EF 55-6%. Lipid panel resume see above Home medications atenolol 50 mg twice a day, Norvasc, 10 mg daily, enalapril 20 mg twice a day for hypertension along with Terazosin 5 mill grams by mouth daily Home medication fenofibrate 160 mg by mouth daily for dyslipidemia. Added Pravachol 40 mg by mouth daily Holding baby aspirin 81 mg daily status post alteplase 24 hours. We'll start aspirin daily and Plavix [address] and if negative complete Consider LINQ monitoring outpatient cardiology consult for A. fib Resp: Obstructive sleep apnea on CPAP at night Family to bring in machine overnight. Settings of 4 Nasal cannula to maintain saturations greater than equal to 90% Incentive spirometry while awake GI: Currently nothing by mouth. Advanced post CT head Protonix for GI prophylaxis Gena-Colace for bowel regimen : BPH Barajas catheter if indicated Holding terazosin 5 mill grams by mouth daily for BPH Endo: Diabetes mellitus Hyperglycemia Will hold long-acting insulins including trulicity 0.75 mg every 7 days and Bydurean 2 mill grams subcutaneous every 7 days Holding glipizide 10 mg by mouth twice a day Sliding-scale insulin to maintain euglycemia Immobility and C-loop 0.9 Renal: Monitor urine output Accurate I's and O's Follow BMP in a.m. Heme: CBC within normal limits Recheck in a.m. status post alteplase ID: Monitor for infection/fever/elevated WBC FEN: Replace electrolytes as clinically indicated MSK: PT/OT/ST evaluate and treat Access - Utilize peripheral IV. Central line if indicated Prophylaxis - GI - Protonix - DVT - SCD/pharmacological prophylaxis contraindicated status post alteplase. Will initiate lovenox 24 hours post placed infusion if negative for hemorrhage Level II Johnathan Farias MD Aug 07, 2016 13:04
[2016-08-07 16:20] LABS: HEMOGLOBIN A1a 1.8 %; HEMOGLOBIN A1b 1.1 %; HEMOGLOBIN Ao 74.7 %; HEMOGLOBIN F 2.7 %; HEMOGLOBIN LA1C 2.8 %
[2016-08-07] MEDS: glipiZIDE 10 MG TAB PO SCH (18:12)
[2016-08-07] MEDS: TERAZOSIN HCL 5 MG CAP PO SCH (22:06)
[2016-08-07] MEDS: PRAVASTATIN SOD 40 MG TAB PO SCH (22:07)
[2016-08-07] MEDS: ATENOLOL 50 MG TAB PO SCH (22:07)
[2016-08-08] VITALS (12 sets, daily range): BP systolic 145–178; BP diastolic 63–80; PULSE 61–69; RESP 15–20; TEMP 96.6–98.7; O2SAT 93–96
[2016-08-08] MEDS: CHLORHEXIDINE GLUCONATE 2 % 1 PACK (2 CLOTHS) TOP SCH (04:00)
[2016-08-08] MEDS: glipiZIDE 10 MG TAB PO SCH ×2 (06:00→15:40)
[2016-08-08] MEDS: INSULIN ASPART SUPPLEMENTAL SCALE SQ SCH ×4 (06:01→20:43)
[2016-08-08] MEDS: ATENOLOL 50 MG TAB PO SCH ×2 (07:48→20:42)
[2016-08-08] MEDS: ASPIRIN 81 MG CHEW TAB CHEW SCH (07:48)
[2016-08-08] MEDS: FENOFIBRATE 145 MG TAB PO SCH (07:48)
[2016-08-08] MEDS: CLOPIDOGREL 75 MG TAB PO SCH (07:48)
[2016-08-08] MEDS: DOCUSATE SODIUM 50 MG/SENNA 8.6 MG TAB PO SCH ×2 (07:49→20:43)
[2016-08-08] MEDS: SODIUM CHLORIDE 0.9% FLUSH 5 ML FLUSH IV FLUSH SCH ×2 (07:49→20:43)
--- NOTE | 2016-08-08 09:37 | HHI.PR ---
Review/Management Diagnosis Small left parietal stroke--clinically significantly improved after iv TPA Plan on plavix 75 mg daily and asa 81 mg daily. carotids nml mri brain reviewed mra brain no major vessel occlusion doing well recs continue to monitor telemetry to r/o afib. 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 Diagnosis/Plan: (1) Acute ischemic left MCA stroke (2) Hypertension (3) Diabetes mellitus (4) Dyslipidemia Subjective Subjective Comments No acute events reported xcover s/p iv tpa for acute stroke No headache No chest pain No dyspnea Active Medications Current Medications Medications (Trade) Dose Ordered Sig/Babak Route Start Time Stop Time Status Last Admin (Pravachol) 40 mg HS PO 08/06/16 21:00 08/07/16 22:07 (NovoLOG SUPPLEMENTAL SCALE) 1 ACHS SQ 08/06/16 16:00 08/08/16 06:01 (Nitroglycerin 2% Oint) 2 inch Q6H PRN TOPICAL 08/06/16 11:45 08/06/16 17:09 (NS Flush) 2 ml BID IV FLUSH 08/06/16 21:00 08/08/16 07:49 (NS Flush) 2 ml UNSCH PRN IV FLUSH 08/06/16 12:00 (Zofran Inj) 4 mg Q6H PRN IV 08/06/16 12:00 08/07/16 05:58 Miscellaneous Information 1 Q361D XX 08/06/16 12:00 (Chlorhexidine 2% Cloth) 3 pack Taper DAILY@04 TOP 08/07/16 04:00 08/03/17 03:59 (Chlorhexidine 2% Cloth) 3 pack UNSCH PRN TOP 08/06/16 12:00 (Gena-Colace) 1 tab BID PO 08/06/16 21:00 08/07/16 22:06 (Milk Of Magnesia Liq) 30 ml Q12H PRN PO 08/06/16 12:00 (Senokot) 17.2 mg Q12H PRN PO 08/06/16 12:00 (Dulcolax Supp) 10 mg DAILY PRN RECTAL 08/06/16 12:00 (Lactulose Liq) 30 ml DAILY PRN PO 08/06/16 12:00 (D50w (Vial) Inj) 25 ml UNSCH PRN IV PUSH 08/06/16 12:00 (Glucagon Inj) 1 mg UNSCH PRN OTHER 08/06/16 12:00 (Tylenol) 650 mg Q4H PRN PO 08/07/16 09:45 (Aspirin Chew) 81 mg DAILY CHEW 08/08/16 09:00 08/08/16 07:48 (Plavix) 75 mg DAILY PO 08/08/16 09:00 08/08/16 07:48 (Tenormin) 50 mg BID PO 08/07/16 21:00 08/08/16 07:48 (Glucotrol) 10 mg BIDAC PO 08/07/16 16:00 08/08/16 06:00 (Hytrin) 5 mg HS PO 08/07/16 21:00 08/07/16 22:06 (Tricor) 145 mg DAILY PO 08/08/16 09:00 08/08/16 07:48 Allergies Allergies Coded Allergies Codeine (Verified Allergy, Severe, Rash, 05/05/15) Verapamil (Unverified Allergy, Severe, causes ileus, 05/05/15) Exam I&O / VS 08/07/16 08/07/16 08/08/16 15:00 23:00 07:00 # Voids 4 # Bowel Movements 1 Vital Signs Date Time Temp Pulse Resp B/P Pulse Ox O2 Delivery O2 Flow Rate FiO2 08/08/16 09:09 61 08/08/16 08:12 98.7 65 18 145/63 95 08/08/16 04:00 97.6 69 18 152/67 96 08/08/16 00:00 98.0 67 15 164/72 95 08/07/16 20:00 98.3 69 18 181/78 94 08/07/16 20:00 98.3 69 18 181/78 94 08/07/16 19:59 93 21 08/07/16 16:39 97.2 65 20 186/84 97 08/07/16 15:00 65 08/07/16 12:00 98.3 79 28 148/58 96 General: Alert and Oriented, No acute distress Eye: EOMI Respiratory: Non-labored respirations Musculoskeletal: ROM Neurologic: Alert, Oriented, Normal sensory, Normal motor, Gag reflex normal, Normal DTR's Psychiatric: Cooperative, Appropriate mood & affect, Normal judgement, Non- suicidal Exam Comments rt facial droop Problem Qualifiers (1) Hypertension: Qualified Code: I10 - Essential hypertension (2) Diabetes mellitus: Qualified Code: E11.8 - Type 2 diabetes mellitus with complication, with long- term current use of insulin Malachi Kaufman MD Aug 08, 2016 09:37
[2016-08-08] MEDS: HEPARIN SODIUM - SQ 10,000 UNITS/ML VIAL SQ SCH ×2 (11:58→20:43)
[2016-08-08 13:18] LABS: AUTOMATED NEUTROPHIL # 5.9 TH/MM3 (1.8-7.7); BASOPHIL % 0.3 % (0.0-2.0); EOSINOPHIL # 0.2 TH/MM3 (0-0.4); EOSINOPHIL % 1.9 % (0.0-4.0); HEMATOCRIT 42.1 % (39.0-51.0); HEMO FLAGS DIFF FINAL; LYMPH % 21.7 % (9.0-44.0); LYMPHOCYTE # 1.9 TH/MM3 (1.0-4.8); MEAN CELL VOLUME 82.3 FL (80.0-100.0); MEAN CORPUSCULAR HEMOGLOBIN 27.8 PG (27.0-34.0); MEAN CORPUSCULAR HGB CONC 33.7 % (32.0-36.0); MONO % 8.4 % (0.0-8.0); NEUT % 67.7 % (16.0-70.0); PLATELET COUNT 259 TH/MM3 (150-450); RED BLOOD COUNT 5.12 MIL/MM3 (4.50-5.90); RED CELL DISTRIBUTION WIDTH 14.8 % (11.6-17.2); WHITE BLOOD COUNT 8.7 TH/MM3 (4.0-11.0)
--- NOTE | 2016-08-08 13:32 | MB ---
cc: MUKUND ALEXANDRA MD DATE OF CONSULTATION: 08/08/2016 REASON FOR CONSULTATION CVA. HISTORY OF PRESENT ILLNESS The patient is a very pleasant 75-year-old gentleman who previously was seeing Dr. Stein but apparently was not able to go there for insurance reasons. The patient presents with an acute CVA. He was returning from [facility] when his found him to have a facial droop with garbled speech, was called and he did eventually receive TPA. He is recovering well though still with some facial and speech residuals. He denies any cardiac symptoms such as chest pain, shortness of breath, lightheadedness, dizziness or syncope. He also has a known history of palpitations. Of note, the patient's son does have a PFO which was found at the time of a stroke. PAST MEDICAL HISTORY 1. Moderate nonobstructive coronary disease (per the patient's report with a fairly recent cardiac catheterization performed at [facility]). 2. Hypertension. 3. Diabetes. CURRENT MEDICATIONS 1. Subcu Heparin. 2. Aspirin 81 mg daily. 3. Plavix 75 mg daily. 4. Tricor 145 mg daily. 5. Atenolol 50 mg b.i.d. 6. Glipizide 10 mg b.i.d. ALLERGIES CODEINE, VERAPAMIL. PHYSICAL EXAMINATION VITAL SIGNS: Afebrile, pulse 61, respiratory rate 18, BP 145/63, satting 95 on 2 liters. GENERAL: A pleasant well-appearing gentleman in no distress. NECK: No JVD. LUNGS: Clear to auscultation bilaterally. CARDIOVASCULAR: Regular rate rhythm. No murmurs appreciated. ABDOMEN: Benign. EXTREMITIES: No edema. LABORATORY DATA White count 10.4, hematocrit 40.6, platelets 246. Sodium 141, potassium 3.9, chloride 109, bicarb 20, BUN 12, creatinine 0.99, glucose 233, hemoglobin A1c is 12.1. EKG showed sinus rhythm with right bundle branch block and PACs. IMPRESSION AND RECOMMENDATIONS CVA. The patient with multiple risk factors had an acute CVA. He has a family history of PFO and CVA. I believe the best course of action will be to perform a TE to exclude ASD or PFO and then to perform a loop recorder to exclude atrial fibrillation as the source of his new stroke. The patient agrees with these tests and they will be performed over the next couple of days. Thank you again for the opportunity to participate in this patient's care. MD LUBA Lopez/PRESTON /10:45 AM /1:17 PM
[2016-08-08 14:05] LABS: ALT (GPT) 25 U/L (12-78); ANION GAP 9 MEQ/L (5-15); BICARBONATE 22.5 MEQ/L (21.0-32.0); BLOOD UREA NITROGEN 12 MG/DL (7-18); CHLORIDE 106 MEQ/L (98-107); GLOMERULAR FILTRATION RATE 72 ML/MIN (>89); POTASSIUM 3.6 MEQ/L (3.5-5.1); SODIUM (NA) 137 MEQ/L (136-145)
[2016-08-08 14:16] LABS: ALKALINE PHOSPHATASE 80 U/L (45-117); AST (GOT) 25 U/L (15-37)
[2016-08-08] MEDS: PRAVASTATIN SOD 40 MG TAB PO SCH (20:42)
[2016-08-08] MEDS: TERAZOSIN HCL 5 MG CAP PO SCH (20:42)
[2016-08-08] MEDS ORDERED: INSULIN DETEMIR 100 UNITS/ML VIAL SQ SCH (22:33)
--- NOTE | 2016-08-08 22:40 | HHI.PR ---
Subjective Remarks Patient seen today around noon. Says he is feeling well. Denies any chest pain or shortness of breath. Reports slurred speech is improving. Objective Vital Signs Date Time Temp Pulse Resp B/P Pulse Ox O2 Delivery O2 Flow Rate FiO2 08/08/16 20:00 97.9 65 20 158/79 96 08/08/16 17:48 93 Nasal Cannula 2.00 08/08/16 16:00 97.1 64 15 174/75 93 08/08/16 12:35 96.6 68 18 154/80 95 08/08/16 09:52 95 21 08/08/16 09:09 61 08/08/16 08:12 98.7 65 18 145/63 95 08/08/16 04:00 97.6 69 18 152/67 96 08/08/16 00:00 98.0 67 15 164/72 95 I/O 08/07/16 08/07/16 08/07/16 08/08/16 08/08/16 08/08/16 07:00 15:00 23:00 07:00 15:00 23:00 Intake Total 467 ml Output Total 200 ml Balance 267 ml Intake IV Total 467 ml Output Urine Total 200 ml # Voids 4 2 # Bowel Movements 0 1 1 Result Diagram: 08/08/16 1232 08/08/16 1232 Objective Remarks GENERAL: patient sitting up in bed. Appears comfortable. Alert and oriented 3. SKIN: Warm and dry. HEAD: Normocephalic. EYES: No scleral icterus. No injection or drainage. NECK: Supple, trachea midline. No JVD. CARDIOVASCULAR: Regular rate and rhythm without murmurs, gallops, or rubs. RESPIRATORY: Breath sounds equal bilaterally. No accessory muscle use. GASTROINTESTINAL: Abdomen soft, non-tender, nondistended. MUSCULOSKELETAL: No cyanosis, or edema. BACK: Nontender without obvious deformity. No CVA tenderness. A/P Assessment and Plan ======08/08/16 Planning for JUAN, as well as loop recorder placement Continue Plavix. DVT prophylaxis with heparin as per neurology. Hyperglycemia. Levemir added at night. Neuro/Psych: Left frontal/parietal Right facial droop/dysarthria History of migraine headache Dr. Weeks/neurology following Status post alteplase and 0.9 mg in ED followed by 71.1 mg On admission revealed no acute intracranial findings. No CTA head secondary to NIH score of less than 6 on arrival MRI Brain revealed left frontoparietal infarct with small lacunar infarct in the deep white matter. MRA brain revealed COLLECTIONS ATTORNEY taking off repeat comp. Hypoplastic A1 segment. Carotid ultrasound revealed carotid plaques bilaterally without focal hemodynamic stenosis. Neurochecks per protocol Goal to keep systolic blood pressure less than 180/diastolic less than 105 status post alteplase Lipid panel revealed checklist is 196. Hemoglobin A1c 11.9 Echocardiogram revealed EF 55-60%. No regional motion abnormality. Trace AR/TR Follow-up head CT 24 hours post alteplase 1125 08/07 pending PT/OT/ST evaluate and treat To admit for fever/pain CV: Hypertension Dyslipidemia Goal keep systolic blood pressure less than 180, diastolic blood pressure less than 105 status post alteplase As needed labetalol 10 mg every hour/hydralazine 10 every hour and Cleviprex drip written Noted allergy to verapamil/no Cardene 2-D echocardiogram as above. EF 55-6%. Lipid panel resume see above Home medications atenolol 50 mg twice a day, Norvasc, 10 mg daily, enalapril 20 mg twice a day for hypertension along with Terazosin 5 mill grams by mouth daily Home medication fenofibrate 160 mg by mouth daily for dyslipidemia. Added Pravachol 40 mg by mouth daily Holding baby aspirin 81 mg daily status post alteplase 24 hours. We'll start aspirin daily and Plavix [address] and if negative complete Consider LINQ monitoring outpatient cardiology consult for A. fib Resp: Obstructive sleep apnea on CPAP at night Family to bring in machine overnight. Settings of 4 Nasal cannula to maintain saturations greater than equal to 90% Incentive spirometry while awake GI: Currently nothing by mouth. Advanced post CT head Protonix for GI prophylaxis Gena-Colace for bowel regimen : BPH Barajas catheter if indicated Holding terazosin 5 mill grams by mouth daily for BPH Endo: Diabetes mellitus Hyperglycemia Will hold long-acting insulins including trulicity 0.75 mg every 7 days and Bydurean 2 mill grams subcutaneous every 7 days Holding glipizide 10 mg by mouth twice a day Sliding-scale insulin to maintain euglycemia Immobility and C-loop 0.9 Prophylaxis - GI - Protonix - DVT - SCD/pharmacological prophylaxis contraindicated status post alteplase. heparin subcutaneous as per neurology. Royal Michel MD Aug 08, 2016 22:40
[2016-08-08] MEDS ORDERED: SODIUM CHLORID 0.9% 500 ML IV PRN (23:45)
[2016-08-08] MEDS ORDERED: CHLORHEXIDINE GLUCONATE 2 % 1 PACK (2 CLOTHS) TOPICAL PRN (23:45)
[2016-08-08] MEDS ORDERED: INSULIN HUMAN REGULAR 1,000 UNITS/10 ML VIAL SQ PRN (23:45)
[2016-08-08] MEDS ORDERED: LACTATED RINGER'S 1000 ML IV PRN (23:45)
[2016-08-08] MEDS ORDERED: POVIDONE IODINE 5% (ANTISEPSIS KIT) 4 APPLICATIONS EACH NARE PRN (23:45)
[2016-08-09] VITALS (26 sets, daily range): BP systolic 122–160; BP diastolic 57–81; PULSE 56–82; RESP 20; TEMP 97.4–99; O2SAT 96–98
[2016-08-09] MEDS: INSULIN ASPART SUPPLEMENTAL SCALE SQ SCH ×4 (07:00→22:02)
[2016-08-09] MEDS: glipiZIDE 10 MG TAB PO SCH ×2 (07:00→16:01)
[2016-08-09] MEDS: DOCUSATE SODIUM 50 MG/SENNA 8.6 MG TAB PO SCH ×2 (08:42→20:43)
[2016-08-09] MEDS: CLOPIDOGREL 75 MG TAB PO SCH (08:42)
[2016-08-09] MEDS: FENOFIBRATE 145 MG TAB PO SCH (08:42)
[2016-08-09] MEDS: HEPARIN SODIUM - SQ 10,000 UNITS/ML VIAL SQ SCH ×2 (08:43→20:44)
[2016-08-09] MEDS: ATENOLOL 50 MG TAB PO SCH ×2 (08:43→20:43)
[2016-08-09] MEDS: ASPIRIN 81 MG CHEW TAB CHEW SCH (08:43)
[2016-08-09] MEDS: SODIUM CHLORIDE 0.9% FLUSH 5 ML FLUSH IV FLUSH SCH ×2 (09:00→20:45)
--- NOTE | 2016-08-09 10:42 | HHI.PR ---
Review/Management Diagnosis Small left parietal stroke--clinically significantly improved after iv TPA Plan on plavix 75 mg daily and asa 81 mg daily. 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 Weeks to f/u in am probable d/c planning Diagnosis/Plan: (1) Acute ischemic left MCA stroke (2) Hypertension (3) Diabetes mellitus (4) Dyslipidemia Subjective Subjective Comments No acute events reported No headache No chest pain No dyspnea Active Medications Current Medications Medications (Trade) Dose Ordered Sig/Babak Route Start Time Stop Time Status Last Admin (Pravachol) 40 mg HS PO 08/06/16 21:00 08/08/16 20:42 (NovoLOG SUPPLEMENTAL SCALE) 1 ACHS SQ 08/06/16 16:00 08/08/16 20:43 (Nitroglycerin 2% Oint) 2 inch Q6H PRN TOPICAL 08/06/16 11:45 08/06/16 17:09 (NS Flush) 2 ml BID IV FLUSH 08/06/16 21:00 08/09/16 09:00 (NS Flush) 2 ml UNSCH PRN IV FLUSH 08/06/16 12:00 (Zofran Inj) 4 mg Q6H PRN IV 08/06/16 12:00 08/07/16 05:58 Miscellaneous Information 1 Q361D XX 08/06/16 12:00 (Chlorhexidine 2% Cloth) 3 pack Taper DAILY@04 TOP 08/07/16 04:00 08/03/17 03:59 (Chlorhexidine 2% Cloth) 3 pack UNSCH PRN TOP 08/06/16 12:00 (Gena-Colace) 1 tab BID PO 08/06/16 21:00 08/09/16 08:42 (Milk Of Magnesia Liq) 30 ml Q12H PRN PO 08/06/16 12:00 (Senokot) 17.2 mg Q12H PRN PO 08/06/16 12:00 (Dulcolax Supp) 10 mg DAILY PRN RECTAL 08/06/16 12:00 (Lactulose Liq) 30 ml DAILY PRN PO 08/06/16 12:00 (D50w (Vial) Inj) 25 ml UNSCH PRN IV PUSH 08/06/16 12:00 (Glucagon Inj) 1 mg UNSCH PRN OTHER 08/06/16 12:00 (Tylenol) 650 mg Q4H PRN PO 08/07/16 09:45 (Aspirin Chew) 81 mg DAILY CHEW 08/08/16 09:00 08/09/16 08:43 (Plavix) 75 mg DAILY PO 08/08/16 09:00 08/09/16 08:42 (Tenormin) 50 mg BID PO 08/07/16 21:00 08/09/16 08:43 (Glucotrol) 10 mg BIDAC PO 08/07/16 16:00 08/08/16 15:40 (Hytrin) 5 mg HS PO 08/07/16 21:00 08/08/16 20:42 (Tricor) 145 mg DAILY PO 08/08/16 09:00 08/09/16 08:42 (Heparin Inj) 5,000 units BID SQ 08/08/16 10:30 08/08/16 20:43 Insulin Detemir 10 units 10 units HS SQ 08/08/16 22:33 Lactated Ringer's 1,000 ml @ 30 mls/hr Q24H PRN IV 08/08/16 23:45 08/11/16 23:44 (NS 500 ml Inj) 500 ml @ 30 mls/hr [id number] PRN IV 08/08/16 23:45 08/11/16 23:44 Allergies Allergies Coded Allergies Codeine (Verified Allergy, Severe, Rash, 05/05/15) Verapamil (Unverified Allergy, Severe, causes ileus, 05/05/15) Review of Systems All other ROS: ROS reviewed as documented in chart Exam I&O / VS 08/08/16 08/08/16 08/09/16 15:00 23:00 07:00 Intake Total 240 ml Output Total 300 ml Balance -60 ml Intake Oral 240 ml Output Urine Total 300 ml # Voids 2 # Bowel Movements 1 Vital Signs Date Time Temp Pulse Resp B/P Pulse Ox O2 Delivery O2 Flow Rate FiO2 08/09/16 08:00 99.0 62 20 159/81 96 08/09/16 06:00 57 08/09/16 05:00 60 08/09/16 04:00 98.0 65 20 122/67 96 08/09/16 04:00 58 08/09/16 03:00 57 08/09/16 02:00 60 08/09/16 01:00 59 08/09/16 00:00 97.4 69 20 130/70 96 08/09/16 00:00 60 08/08/16 23:00 65 08/08/16 22:00 69 08/08/16 20:00 97.9 65 20 158/79 96 08/08/16 17:48 93 Nasal Cannula 2.00 08/08/16 16:00 97.1 64 15 174/75 93 08/08/16 12:35 96.6 68 18 154/80 95 General: Alert and Oriented, No acute distress Eye: EOMI Respiratory: Non-labored respirations Musculoskeletal: ROM Neurologic: Alert, Oriented, Normal sensory, Normal motor, Gag reflex normal, Normal DTR's Psychiatric: Cooperative, Appropriate mood & affect, Normal judgement, Non- suicidal Exam Comments rt facial droop-better Objective Micro and Labs Laboratory Tests Test 08/08/16 12:32 White Blood Count 8.7 Red Blood Count 5.12 Hemoglobin 14.2 Hematocrit 42.1 Mean Corpuscular Volume 82.3 Mean Corpuscular Hemoglobin 27.8 Mean Corpuscular Hemoglobin 33.7 Concent Red Cell Distribution Width 14.8 Platelet Count 259 Mean Platelet Volume 7.8 Neutrophils (%) (Auto) 67.7 Lymphocytes (%) (Auto) 21.7 Monocytes (%) (Auto) 8.4 Eosinophils (%) (Auto) 1.9 Basophils (%) (Auto) 0.3 Neutrophils # (Auto) 5.9 Lymphocytes # (Auto) 1.9 Monocytes # (Auto) 0.7 Eosinophils # (Auto) 0.2 Basophils # (Auto) 0.0 CBC Comment DIFF FINAL Differential Comment Sodium Level 137 Potassium Level 3.6 Chloride Level 106 Carbon Dioxide Level 22.5 Anion Gap 9 Blood Urea Nitrogen 12 Creatinine 1.01 Estimat Glomerular Filtration 72 Rate Random Glucose 246 Calcium Level 9.5 Total Bilirubin 1.0 Aspartate Amino Transf 25 (AST/SGOT) Alanine Aminotransferase 25 (ALT/SGPT) Alkaline Phosphatase 80 Total Protein 6.6 Albumin 3.1 Problem Qualifiers (1) Hypertension: Qualified Code: I10 - Essential hypertension (2) Diabetes mellitus: Qualified Code: E11.8 - Type 2 diabetes mellitus with complication, with long- term current use of insulin Malachi Kaufman MD Aug 09, 2016 10:42
[2016-08-09] MEDS ORDERED: KETAMINE HCL 500 MG/5 ML VIAL ONE (10:43)
--- NOTE | 2016-08-09 11:21 | PD.CARD.PN ---
Subjective Subjective Remarks Pt did well since yesterday, no complaints, very small PFO seen by JUAN Objective Medications Administered Medications Medications (Trade) Dose Ordered Sig/Babak Route PRN Reason Start Time Stop Time Status Last Admin Dose Admin Pravastatin Sodium (Pravachol) 40 mg HS PO 08/06/16 21:00 08/08/16 20:42 Insulin Aspart (NovoLOG SUPPLEMENTAL SCALE) 1 ACHS SQ 08/06/16 16:00 08/08/16 20:43 Nitroglycerin (Nitroglycerin 2% Oint) 2 inch Q6H PRN TOPICAL SBP>180, DBP>105 08/06/16 11:45 08/06/16 17:09 IV Flush (NS Flush) 2 ml BID IV FLUSH 08/06/16 21:00 08/09/16 09:00 Ondansetron HCl (Zofran Inj) 4 mg Q6H PRN IV NAUSEA OR VOMITING 08/06/16 12:00 08/07/16 05:58 Senna/Docusate Sodium (Gena-Colace) 1 tab BID PO 08/06/16 21:00 08/09/16 08:42 Aspirin (Aspirin Chew) 81 mg DAILY CHEW 08/08/16 09:00 08/09/16 08:43 Clopidogrel Bisulfate (Plavix) 75 mg DAILY PO 08/08/16 09:00 08/09/16 08:42 Atenolol (Tenormin) 50 mg BID PO 08/07/16 21:00 08/09/16 08:43 Glipizide (Glucotrol) 10 mg BIDAC PO 08/07/16 16:00 08/08/16 15:40 Terazosin HCl (Hytrin) 5 mg HS PO 08/07/16 21:00 08/08/16 20:42 Fenofibrate (Tricor) 145 mg DAILY PO 08/08/16 09:00 08/09/16 08:42 Heparin Sodium (Porcine) (Heparin Inj) 5,000 units BID SQ 08/08/16 10:30 08/08/16 20:43 Vital Signs / I&O Vital Signs Date Time Temp Pulse Resp B/P Pulse Ox O2 Delivery O2 Flow Rate FiO2 08/09/16 10:00 62 08/09/16 09:30 97 21 08/09/16 09:00 62 08/09/16 08:00 82 08/09/16 08:00 99.0 62 20 159/81 96 08/09/16 07:00 61 08/09/16 06:00 57 08/09/16 05:00 60 08/09/16 04:00 98.0 65 20 122/67 96 08/09/16 04:00 58 08/09/16 03:00 57 08/09/16 02:00 60 08/09/16 01:00 59 08/09/16 00:00 97.4 69 20 130/70 96 08/09/16 00:00 60 08/08/16 23:00 65 08/08/16 22:00 69 08/08/16 20:00 97.9 65 20 158/79 96 08/08/16 17:48 93 Nasal Cannula 2.00 08/08/16 16:00 97.1 64 15 174/75 93 08/08/16 12:35 96.6 68 18 154/80 95 I/O 08/08/16 08/08/16 08/08/16 08/09/16 08/09/16 08/09/16 07:00 15:00 23:00 07:00 15:00 23:00 Intake Total 240 ml Output Total 300 ml Balance -60 ml Intake Oral 240 ml Output Urine Total 300 ml # Voids 4 2 # Bowel Movements 1 Physical Exam GENERAL: This is a well-nourished, well-developed patient, in no apparent distress. CARDIOVASCULAR: Regular rate and rhythm without murmurs, gallops, or rubs. RESPIRATORY: Clear to auscultation. Breath sounds equal bilaterally. No wheezes , rales, or rhonchi. GASTROINTESTINAL: Abdomen soft, non-tender, nondistended. Normal active bowel sounds MUSCULOSKELETAL: Extremities without clubbing, cyanosis, or edema. NEURO: Alert & Oriented x4 to person, place, time, situation. Moves all ext x4 Laboratory Laboratory Tests Test 08/08/16 12:32 White Blood Count 8.7 TH/MM3 Red Blood Count 5.12 MIL/MM3 Hemoglobin 14.2 GM/DL Hematocrit 42.1 % Mean Corpuscular Volume 82.3 FL Mean Corpuscular Hemoglobin 27.8 PG Mean Corpuscular Hemoglobin 33.7 % Concent Red Cell Distribution Width 14.8 % Platelet Count 259 TH/MM3 Mean Platelet Volume 7.8 FL Neutrophils (%) (Auto) 67.7 % Lymphocytes (%) (Auto) 21.7 % Monocytes (%) (Auto) 8.4 % Eosinophils (%) (Auto) 1.9 % Basophils (%) (Auto) 0.3 % Neutrophils # (Auto) 5.9 TH/MM3 Lymphocytes # (Auto) 1.9 TH/MM3 Monocytes # (Auto) 0.7 TH/MM3 Eosinophils # (Auto) 0.2 TH/MM3 Basophils # (Auto) 0.0 TH/MM3 CBC Comment DIFF FINAL Differential Comment Sodium Level 137 MEQ/L Potassium Level 3.6 MEQ/L Chloride Level 106 MEQ/L Carbon Dioxide Level 22.5 MEQ/L Anion Gap 9 MEQ/L Blood Urea Nitrogen 12 MG/DL Creatinine 1.01 MG/DL Estimat Glomerular Filtration 72 ML/MIN Rate Random Glucose 246 MG/DL Calcium Level 9.5 MG/DL Total Bilirubin 1.0 MG/DL Aspartate Amino Transf 25 U/L (AST/SGOT) Alanine Aminotransferase 25 U/L (ALT/SGPT) Alkaline Phosphatase 80 U/L Total Protein 6.6 GM/DL Albumin 3.1 GM/DL Imaging Last Impressions Head CT 08/07/16 1130 Signed Impressions: Service Date/Time: Sunday, August 07, 2016 11:43 - CONCLUSION: No mass, hemorrhage or shift. Area of infarction seen on MRI demonstrates a small linear area of decreased attenuation in the left frontoparietal region. Anthony Boles MD Head Magnetic Resonance Angiography 08/06/16 0000 Signed Impressions: Service Date/Time: July 15:27 - CONCLUSION: 1. Incidental anatomic variation otherwise no large or central vessel occlusion identified. Leif Garcia MD Carotid Artery Ultrasound 08/06/16 0000 Signed Impressions: Service Date/Time: July 12:02 - CONCLUSION: 1. Mild calcified plaque in the carotid bulbs bilaterally. No significant stenosis is present within either internal carotid artery. 2. There is antegrade flow within both vertebral arteries. Jevon Anaya MD Brain MRI 08/06/16 0000 Signed Impressions: Service Date/Time: July 15:27 - CONCLUSION: Small acute infarct in a linear orientation along the left frontoparietal motor region with a small punctate infarct in the adjacent deep white matter. No associated mass , hemorrhage or shift. Mild white matter ischemic changes. Anthony Boles MD Assessment and Plan Problem List: (1) Acute CVA (cerebrovascular accident) Assessment and Plan: will plan for loop tomorrow to exclude occult Afib. (2) PFO (patent foramen ovale) Assessment and Plan: very small and with only very small amount of baseline R-> L shunting; will get u/s lower ext. to r/o DVT and paradoxical embolus; unclear if truly etiology for cva, will also plan for loop recorder. If fails anti- platlet therapy would have to consider closure. Ramiro Martinez MD Aug 09, 2016 11:21
--- NOTE | 2016-08-09 15:04 | ECHRPT ---
Indication: cva/tia CONCLUSIONS Notable for a small PFO with very slight right to left shunting seen. Also seen is moderate, eccent ramon aortic regurgitation. LVEF 50%. BP: / HR: Rhythm: Technical Quality:Good Medications Complications Proc. Components FINDINGS LEFT VENTRICLE The left ventricular systolic function is low normal with an estimated ejection fraction in the rang e of 50- 55%. LEFT ATRIUM The left atrial size is normal. RIGHT ATRIUM The right atrial size is normal. ATRIAL APPENDAGES The velocities in the left atrial appendage are normal. No thrombus detected in the left atrial appendage. ATRIAL SEPTUM Right to left atrial level shunt is observed with agitated saline contrast administration. Atrial septal aneurysm is present (benign finding). A patent foramen ovale is present with a [id number] shunt demonstrated by color flow Doppler interrogation. MITRAL VALVE Trace mitral valve regurgitation. AORTIC VALVE Aortic valve sclerosis is present. Moderate aortic valve regurgitation. Eccentric aortic regurgitation jet directed at the mitral valve . TRICUSPID VALVE Trace Tricuspid regurgitation VESSELS The pulmonary valve is not well visualized. PERICADIUM No pericardial effusion Ramiro Martinez MD (Electronically Signed) Final Date:09 August 2016 15:03
--- NOTE | 2016-08-09 18:36 | RADRPT ---
EXAM DATE/TIME: 08/09/2016 17:41 [facility] COMPARISON: No previous studies available for comparison. INDICATIONS : Patient with PFO, possible paradoxical embolism, Emboli. MEDICAL HISTORY : Hypertension. Stress migraines. Chest pain. Sleep apnea. Dyspnea. Verapimil induced ileus. Enlarged p rostate. Diabetes. Anxiety. SURGICAL HISTORY : Appendectomy. Vasectomy. Right wrist surgery. ENCOUNTER: Initial ACUITY: 1 day PAIN SCORE: 0/10 LOCATION: Bilateral leg. TECHNIQUE: Venous ultrasound of the left and right leg was performed from the inguinal ligament to the proximal calf. Real-time, color Doppler and spectral tracing, compression and augmentation techniques were us ed. FINDINGS: RIGHT LEG: There is normal compressibility of the deep venous system from the inguinal region to the proximal ca lf. No echogenic clot is seen in the lumen of the common femoral, femoral, popliteal, and posterior tibial veins. There is a normal response of the venous system to proximal and distal augmentation an d respiration. LEFT LEG: There is normal compressibility of the deep venous system from the inguinal region to the proximal ca lf. No echogenic clot is seen in the lumen of the common femoral, femoral, popliteal, and posterior tibial veins. There is a normal response of the venous system to proximal and distal augmentation an d respiration. CONCLUSION: No evidence of deep venous thrombosis within the lower extremities. Cirilo Aviles MD on August 09, 2016 at 18:34 Board Certified Radiologist. This report was verified electronically.
[2016-08-09] MEDS: TERAZOSIN HCL 5 MG CAP PO SCH (20:43)
[2016-08-09] MEDS: PRAVASTATIN SOD 40 MG TAB PO SCH (20:44)
--- NOTE | 2016-08-09 21:08 | HHI.PR ---
Subjective Remarks Patient seen this morning around 1 PM. Says he is feeling well. Denies any chest pain or shortness of breath. No nausea or vomiting. Objective Vital Signs Date Time Temp Pulse Resp B/P Pulse Ox O2 Delivery O2 Flow Rate FiO2 08/09/16 18:00 60 08/09/16 17:00 62 08/09/16 16:00 98.8 57 20 139/57 98 08/09/16 16:00 62 08/09/16 15:00 56 08/09/16 14:00 60 08/09/16 13:00 60 08/09/16 12:01 58 08/09/16 12:00 98.7 60 20 145/70 98 08/09/16 10:00 62 08/09/16 09:30 97 21 08/09/16 09:00 62 08/09/16 08:00 82 08/09/16 08:00 99.0 62 20 159/81 96 08/09/16 07:00 61 08/09/16 06:00 57 08/09/16 05:00 60 08/09/16 04:00 98.0 65 20 122/67 96 08/09/16 04:00 58 08/09/16 03:00 57 08/09/16 02:00 60 08/09/16 01:00 59 08/09/16 00:00 97.4 69 20 130/70 96 08/09/16 00:00 60 08/08/16 23:00 65 08/08/16 22:00 69 I/O 08/08/16 08/08/16 08/08/16 08/09/16 08/09/16 08/09/16 07:00 15:00 23:00 07:00 15:00 23:00 Intake Total 240 ml 440 ml Output Total 300 ml Balance -60 ml 440 ml Intake Oral 240 ml 240 ml IV Total 200 ml Output Urine Total 300 ml # Voids 4 2 3 # Bowel Movements 1 1 Result Diagram: 08/08/16 1232 08/08/16 1232 Imaging Last Impressions Lower Extremity Ultrasound 08/09/16 0000 Signed Impressions: Service Date/Time: Tuesday, August 09, 2016 17:41 - CONCLUSION: No evidence of deep venous thrombosis within the lower extremities. Cirilo Aviles MD Head CT 08/07/16 1130 Signed Impressions: Service Date/Time: Sunday, August 07, 2016 11:43 - CONCLUSION: No mass, hemorrhage or shift. Area of infarction seen on MRI demonstrates a small linear area of decreased attenuation in the left frontoparietal region. Anthony Boles MD Head Magnetic Resonance Angiography 08/06/16 0000 Signed Impressions: Service Date/Time: July 15:27 - CONCLUSION: 1. Incidental anatomic variation otherwise no large or central vessel occlusion identified. Leif Garcia MD Carotid Artery Ultrasound 08/06/16 0000 Signed Impressions: Service Date/Time: July 12:02 - CONCLUSION: 1. Mild calcified plaque in the carotid bulbs bilaterally. No significant stenosis is present within either internal carotid artery. 2. There is antegrade flow within both vertebral arteries. Jevon Anaya MD Brain MRI 08/06/16 0000 Signed Impressions: Service Date/Time: July 15:27 - CONCLUSION: Small acute infarct in a linear orientation along the left frontoparietal motor region with a small punctate infarct in the adjacent deep white matter. No associated mass , hemorrhage or shift. Mild white matter ischemic changes. Anthony Boles MD Objective Remarks GENERAL: patient lying in bed. Appears comfortable. Alert and oriented 3. SKIN: Warm and dry. HEAD: Normocephalic. EYES: No scleral icterus. No injection or drainage. NECK: Supple, trachea midline. No JVD. CARDIOVASCULAR: Regular rate and rhythm without murmurs, gallops, or rubs. RESPIRATORY: Breath sounds equal bilaterally. No accessory muscle use. GASTROINTESTINAL: Abdomen soft, non-tender, nondistended. MUSCULOSKELETAL: No cyanosis, or edema. BACK: Nontender without obvious deformity. No CVA tenderness. A/P Assessment and Plan ======08/09/16 JUAN positive for PFO, however negative for thrombus. Ultrasound bilateral lower extremities negative for thrombus. Possible loop recorder tomorrow. Anticoagulation as per neurology/cardiology.. Hyperglycemia. Improved on Levemir and at bedtime. Continue to monitor. Neuro/Psych: Left frontal/parietal Right facial droop/dysarthria History of migraine headache Dr. Weeks/neurology following Status post alteplase and 0.9 mg in ED followed by 71.1 mg On admission revealed no acute intracranial findings. No CTA head secondary to NIH score of less than 6 on arrival MRI Brain revealed left frontoparietal infarct with small lacunar infarct in the deep white matter. 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 Hypoplastic A1 segment. Carotid ultrasound revealed carotid plaques bilaterally without focal hemodynamic stenosis. Neurochecks per protocol Goal to keep systolic blood pressure less than 180/diastolic less than 105 status post alteplase Lipid panel revealed checklist is 196. Hemoglobin A1c 11.9 Echocardiogram revealed EF 55-60%. No regional motion abnormality. Trace AR/TR Follow-up head CT 24 hours post alteplase 1125 08/07 pending PT/OT/ST evaluate and treat To admit for fever/pain CV: Hypertension Dyslipidemia Goal keep systolic blood pressure less than 180, diastolic blood pressure less than 105 status post alteplase As needed labetalol 10 mg every hour/hydralazine 10 every hour and Cleviprex drip written Noted allergy to verapamil/no Cardene 2-D echocardiogram as above. EF 55-6%. Lipid panel resume see above Home medications atenolol 50 mg twice a day, Norvasc, 10 mg daily, enalapril 20 mg twice a day for hypertension along with Terazosin 5 mill grams by mouth daily Home medication fenofibrate 160 mg by mouth daily for dyslipidemia. Added Pravachol 40 mg by mouth daily Holding baby aspirin 81 mg daily status post alteplase 24 hours. We'll start aspirin daily and Plavix [address] and if negative complete Consider LINQ monitoring outpatient cardiology consult for A. fib Resp: Obstructive sleep apnea on CPAP at night Family to bring in machine overnight. Settings of 4 Nasal cannula to maintain saturations greater than equal to 90% Incentive spirometry while awake GI: Currently nothing by mouth. Advanced post CT head Protonix for GI prophylaxis Gena-Colace for bowel regimen : BPH Barajas catheter if indicated Holding terazosin 5 mill grams by mouth daily for BPH Endo: Diabetes mellitus Hyperglycemia Will hold long-acting insulins including trulicity 0.75 mg every 7 days and Bydurean 2 mill grams subcutaneous every 7 days Holding glipizide 10 mg by mouth twice a day Sliding-scale insulin to maintain euglycemia Immobility and C-loop 0.9 Prophylaxis - GI - Protonix - DVT - SCD/pharmacological prophylaxis contraindicated status post alteplase. heparin subcutaneous as per neurology. Royal Michel MD Aug 09, 2016 21:08
[2016-08-10] VITALS (11 sets, daily range): BP systolic 139–169; BP diastolic 60–77; PULSE 50–82; RESP 18–20; TEMP 97.7–98.9; O2SAT 95–97
[2016-08-10] MEDS: CHLORHEXIDINE GLUCONATE 2 % 1 PACK (2 CLOTHS) TOP SCH (04:00)
[2016-08-10] MEDS: INSULIN ASPART SUPPLEMENTAL SCALE SQ SCH ×2 (05:50→11:00)
[2016-08-10] MEDS: glipiZIDE 10 MG TAB PO SCH (05:50)
[2016-08-10] MEDS: DOCUSATE SODIUM 50 MG/SENNA 8.6 MG TAB PO SCH (07:49)
[2016-08-10] MEDS: ATENOLOL 50 MG TAB PO SCH (07:57)
[2016-08-10] MEDS: FENOFIBRATE 145 MG TAB PO SCH (07:57)
[2016-08-10] MEDS: CLOPIDOGREL 75 MG TAB PO SCH (07:57)
[2016-08-10] MEDS: ASPIRIN 81 MG CHEW TAB CHEW SCH (07:57)
[2016-08-10] MEDS ORDERED: MIDAZOLAM HCL 2 MG/2 ML VIAL ONE (08:01)
[2016-08-10] MEDS ORDERED: ceFAZolin INJ 1,000 MG VIAL ONE (08:02)
[2016-08-10] MEDS: HEPARIN SODIUM - SQ 10,000 UNITS/ML VIAL SQ SCH (08:03)
[2016-08-10] MEDS: SODIUM CHLORIDE 0.9% FLUSH 5 ML FLUSH IV FLUSH SCH (08:03)
--- NOTE | 2016-08-10 08:33 | PD.CARD.PN ---
Subjective Subjective Remarks Doing well, no events. Objective Medications Administered Medications Medications (Trade) Dose Ordered Sig/Babak Route PRN Reason Start Time Stop Time Status Last Admin Dose Admin Pravastatin Sodium (Pravachol) 40 mg HS PO 08/06/16 21:00 08/09/16 20:44 Insulin Aspart (NovoLOG SUPPLEMENTAL SCALE) 1 ACHS SQ 08/06/16 16:00 08/09/16 22:02 Nitroglycerin (Nitroglycerin 2% Oint) 2 inch Q6H PRN TOPICAL SBP>180, DBP>105 08/06/16 11:45 08/06/16 17:09 IV Flush (NS Flush) 2 ml BID IV FLUSH 08/06/16 21:00 08/10/16 08:03 Ondansetron HCl (Zofran Inj) 4 mg Q6H PRN IV NAUSEA OR VOMITING 08/06/16 12:00 08/07/16 05:58 Senna/Docusate Sodium (Gena-Colace) 1 tab BID PO 08/06/16 21:00 08/09/16 20:43 Aspirin (Aspirin Chew) 81 mg DAILY CHEW 08/08/16 09:00 08/10/16 07:57 Clopidogrel Bisulfate (Plavix) 75 mg DAILY PO 08/08/16 09:00 08/10/16 07:57 Atenolol (Tenormin) 50 mg BID PO 08/07/16 21:00 08/10/16 07:57 Glipizide (Glucotrol) 10 mg BIDAC PO 08/07/16 16:00 08/09/16 16:01 Terazosin HCl (Hytrin) 5 mg HS PO 08/07/16 21:00 08/09/16 20:43 Fenofibrate (Tricor) 145 mg DAILY PO 08/08/16 09:00 08/10/16 07:57 Heparin Sodium (Porcine) (Heparin Inj) 5,000 units BID SQ 08/08/16 10:30 08/09/16 20:44 Insulin Detemir (Levemir Inj) 10 units HS SQ 08/08/16 22:33 08/09/16 22:08 Vital Signs / I&O Vital Signs Date Time Temp Pulse Resp B/P Pulse Ox O2 Delivery O2 Flow Rate FiO2 08/10/16 06:00 58 08/10/16 05:00 57 08/10/16 04:00 98.1 67 20 139/63 97 08/10/16 04:00 60 08/10/16 03:00 60 08/10/16 02:00 53 08/10/16 01:00 50 08/10/16 00:00 53 08/10/16 00:00 98.9 62 20 147/77 96 08/09/16 23:00 56 08/09/16 22:00 61 08/09/16 21:07 97 21 08/09/16 21:00 60 08/09/16 20:00 98.9 58 20 160/74 96 08/09/16 20:00 60 08/09/16 19:00 58 08/09/16 18:00 60 08/09/16 17:00 62 08/09/16 16:00 98.8 57 20 139/57 98 08/09/16 16:00 62 08/09/16 15:00 56 08/09/16 14:00 60 08/09/16 13:00 60 08/09/16 12:01 58 08/09/16 12:00 98.7 60 20 145/70 98 08/09/16 10:00 62 08/09/16 09:30 97 21 08/09/16 09:00 62 I/O 08/09/16 08/09/16 08/09/16 08/10/16 08/10/16 08/10/16 07:00 15:00 23:00 07:00 15:00 23:00 Intake Total 240 ml 440 ml 240 ml Output Total 300 ml 400 ml Balance -60 ml 440 ml -160 ml Intake Oral 240 ml 240 ml 240 ml IV Total 200 ml Output Urine Total 300 ml 400 ml # Voids 3 # Bowel Movements 1 Physical Exam GENERAL: This is a well-nourished, well-developed patient, in no apparent distress. CARDIOVASCULAR: Regular rate and rhythm without murmurs, gallops, or rubs. RESPIRATORY: Clear to auscultation. Breath sounds equal bilaterally. No wheezes , rales, or rhonchi. GASTROINTESTINAL: Abdomen soft, non-tender, nondistended. Normal active bowel sounds MUSCULOSKELETAL: Extremities without clubbing, cyanosis, or edema. NEURO: Alert & Oriented x4 to person, place, time, situation. Moves all ext x4 Imaging Last Impressions Lower Extremity Ultrasound 6/25/17 0000 Signed Impressions: Service Date/Time: Tuesday, August 09, 2016 17:41 - CONCLUSION: No evidence of deep venous thrombosis within the lower extremities. Cirilo Aviles MD Head CT 08/07/16 1130 Signed Impressions: Service Date/Time: Sunday, August 07, 2016 11:43 - CONCLUSION: No mass, hemorrhage or shift. Area of infarction seen on MRI demonstrates a small linear area of decreased attenuation in the left frontoparietal region. Anthony Boles MD Head Magnetic Resonance Angiography 08/06/16 0000 Signed Impressions: Service Date/Time: July 15:27 - CONCLUSION: 1. Incidental anatomic variation otherwise no large or central vessel occlusion identified. Leif Garcia MD Carotid Artery Ultrasound 08/06/16 0000 Signed Impressions: Service Date/Time: July 12:02 - CONCLUSION: 1. Mild calcified plaque in the carotid bulbs bilaterally. No significant stenosis is present within either internal carotid artery. 2. There is antegrade flow within both vertebral arteries. Jevon Anaya MD Brain MRI 08/06/16 0000 Signed Impressions: Service Date/Time: July 15:27 - CONCLUSION: Small acute infarct in a linear orientation along the left frontoparietal motor region with a small punctate infarct in the adjacent deep white matter. No associated mass , hemorrhage or shift. Mild white matter ischemic changes. Anthony Boles MD Assessment and Plan Problem List: (1) Acute CVA (cerebrovascular accident) Assessment and Plan: loop in place to monitor for afib. (2) PFO (patent foramen ovale) Assessment and Plan: very small and with only very small amount of baseline R-> L shunting; will get u/s lower ext. to r/o DVT and paradoxical embolus; unclear if truly etiology for cva, will also plan for loop recorder. If fails anti- platelet therapy would have to consider closure. Assessment and Plan Ok to d/c home from cardiac standpoint, will f/u in my office in 1-2 weeks. Ramiro Martinez MD Aug 10, 2016 08:33
--- NOTE | 2016-08-10 09:07 | MR ---
cc: RAMIRO MARTINEZ MD DATE: 08/10/[address] Ramiro Martinez. PROCEDURE PERFORMED 1. 15 minutes of moderate IV sedation. 2. Loop recorder insertion. INDICATION CVA. DESCRIPTION OF PROCEDURE At bedside the patient was prepped and draped in the standard sterile technique. After informed consent was obtained a [employer] Reve[employer] LINQ loop recorder was inserted subcutaneously to the left chest. 2 mg of Versed and 15 mcg of fentanyl were used for moderate IV sedation. The patient tolerated the procedure well without any apparent complications. Initial R-wave was 0.47 mV. Tachybrady pause and atrial fibrillation detection was enabled. The serial number was [id number]. Ramiro Martinez MD LUBA/TLL /8:34 AM /8:57 AM
[2016-08-10] MEDS ORDERED: PLAV75TA29 PO (10:52)
[2016-08-10] MEDS ORDERED: ENAL5TAB PO (10:52)
[2016-08-10] MEDS ORDERED: PRAV40TA PO (10:52)
--- NOTE | 2016-08-10 10:54 | HHI.FF ---
Face to Face Verification Diagnosis: (1) Acute CVA (cerebrovascular accident) (2) PFO (patent foramen ovale) (3) BPH (benign prostatic hyperplasia) (4) Hypertension (5) Diabetes mellitus Physical Therapy Order: Evaluate and Treat Occupational Therapy Order: Evaluate and Treat Home Health Nursing Order: Nursing assessment with vital signs I have seen patient Ritesh Traylor on 08/10/16. My clinical findings support the need for the requested home health care services because: Deconditioned w/ increased weakness I certify that my clinical findings support that this patient is homebound because: Unsafe to leave home unassisted Royal Michel MD Aug 10, 2016 10:53
== END 2016-08-10 11:42 | disposition home health service (06) | DRG 41 ==
LOC: NEPE 10:54 → NEDA 11:36 → HIMW 12:55 → N05B 08-07 16:15 → HCIN 08-08 22:03
PROVIDERS: ADMIT Internal Medicine; ATTEND Internal Medicine
PROC: 3E03317 Introduction of Other Thrombolytic into Peripheral Vein, Percutaneous Approach (ICD-10-PCS; principal; 2016-08-06)
PROC: B246ZZ4 Ultrasonography of Right and Left Heart, Transesophageal (ICD-10-PCS; 2016-08-09)
PROC: 0JH602Z Insertion of Monitoring Device into Chest Subcutaneous Tissue and Fascia, Open Approach (ICD-10-PCS; 2016-08-10)
DX: I63.512 Cerebral infarction due to unspecified occlusion or stenosis of left middle cerebral artery (principal); Q21.1 Atrial septal defect; E11.65 Type 2 diabetes mellitus with hyperglycemia; Z99.81 Dependence on supplemental oxygen; I10 Essential (primary) hypertension; R29.810 Facial weakness; N40.0 Benign prostatic hyperplasia without lower urinary tract symptoms; R47.1 Dysarthria and anarthria; F41.9 Anxiety disorder, unspecified; G43.909 Migraine, unspecified, not intractable, without status migrainosus; M54.9 Dorsalgia, unspecified; M25.511 Pain in right shoulder; G47.33 Obstructive sleep apnea (adult) (pediatric); Z79.4 Long term (current) use of insulin; E78.5 Hyperlipidemia, unspecified; E66.9 Obesity, unspecified; R20.9 Unspecified disturbances of skin sensation; I45.10 Unspecified right bundle-branch block; Z82.3 Family history of stroke
CPT/HCPCS: 33282; 70450; 70544; 70551; 80053; 80061; 82435; 82550; 82565; 82947; 82948; 83036; 83735; 84100; 84132; 84295; 84484; 84520; 85025; 85384; 85610; 85730; 86850; 86900; 86901; 87641; 93005; 93306; 93312; 93320; 93325; 93880; 93970; 94150; 96374; 96375; C1764; J0131; J0360; J0690; J1644; J1815; J2250; J2405; J2997; J3010; J7030

== ENCOUNTER 2016-08-24 19:38 | Inpatient (IN) | payer OTHER, MEDICARE ==
[~2016-08-24] VITALS: Ht 180.3 cm; Wt 83.0 kg
[~2016-08-24 19:38] MED LIST changes: -AMLO10 PO; -ASPI81 PO; +ASPI81CH CHEW; -ATEN1TAB74 PO; +ATEN50TA PO; +DULA10IN SQ; +ENAL5TAB PO; +EXEN1INJ SQ; +FENO160T PO; -FENO160T2 OR; +GLIP10TA6 PO; -GLIP5 PO; +PLAV75TA29 PO; +PRAV40TA PO; +TERA5CAP3 PO; -TERA5CAP34 PO; -VENTAER INH
[2016-08-24 19:39] VITALS: BP 191/90; PULSE 92; RESP 16; TEMP 98; O2SAT 96
[2016-08-24] MEDS ORDERED: SODIUM CHLORID 0.9% 500 ML INJ 500 ML IV ONE (20:15)
[2016-08-24] MEDS ORDERED: ONDANSETRON HCL 4 MG/2 ML VIAL IVP ONE (20:15)
[2016-08-24] MEDS ORDERED: SODIUM CHLORIDE 0.9% FLUSH 10 ML FLUSH IVF PRN (20:15)
--- NOTE | 2016-08-24 20:24 | PD ---
HPI Chief Complaint: Neuro Symptoms/ Deficits Time Seen by Provider: 19:53 Travel History International Travel<30 days: No Contact w/Intl Traveler<30days: No Traveled to known affect area: No History of Present Illness HPI The patient is a 75 year old male who presents to the [facility] emergency department with a history of reportedly beginning to feel unwell at approximately 10 PM last night. The patient reports that he began to have nausea and vomiting. He reports that since then he has had nausea and vomiting 7. He reports that at 11:30 AM today due to the persistent nausea he took an [id number] seasickness medicine, Bonine. He reports that it did not help , therefore he decided to come to the emergency department. The patient reports that he has a sensation of feeling generalized weakness with this when he attempts to get up and walk. He denies having any diarrhea. He last moved his bowels earlier today. He denies having any blood in his stool or black or tarry stools. He reports that at 1 PM he also noticed that he had a numbness/ tingling sensation to the left side of the mu-ism that stops at the mid forehead , and numbness tingling to the left cheek. The patient's history is complicated by recently having an ischemic stroke treated with TPA administration at the end of July 2016. The patient was noted to have a patent foramen ovale. The patient has an internal monitor in place to monitor for paroxysmal atrial fibrillation. The patient reports that he was started on a low-dose aspirin and Plavix daily. He did take his medicine today and was able to keep that down. Otherwise he has not been able to eat or drink anything throughout the day. He denies having any new one-sided weakness, slurred speech , vertigo, difficulty with word finding ability, vision changes, or headache associated with this. Otherwise on review of systems, the patient denies any recent fevers, cough, congestion, neck pain, chest pain, shortness of breath, abdominal pain, or urinary symptoms. [facility] Past Medical History Narrative Medical The patient's past medical history is significant for a recent ischemic stroke at the end of July 2016 treated with TPA administration with a follow-up MRI that revealed a small acute infarct and a linear orientation along the left frontoparietal motor region with a small punctate infarct in the adjacent deep white matter. The patient has a patent foramen ovale, history of hypertension, dyslipidemia, diabetes mellitus, migraine headaches, obstructive sleep apnea on CPAP, benign prostatic hypertrophy, obesity. Arthritis: No Asthma: No Autoimmune Disease: No Blood Disorders: No Anxiety: Yes Depression: No Heart Rhythm Problems: No Cancer: No Cardiovascular Problems: Yes High Cholesterol: No Chemotherapy: No Chest Pain: No Congestive Heart Failure: No COPD: No Cerebrovascular Accident: Yes Diabetes: Yes Patient Takes Glucophage: Yes Diminished Hearing: No Endocrine: No Glaucoma: No Genitourinary: No Headaches: Yes (STRESS MIGRAINES) Hepatitis: No Hiatal Hernia: No Hypertension: Yes Immune Disorder: No Implanted Vascular Access Dvce: Yes Kidney Stones: No Musculoskeletal: No Neurologic: No Psychiatric: No Reproductive: No Respiratory: No Immunizations Current: Yes Myocardial Infarction: No Radiation Therapy: No Renal Failure: No Seizures: No Sickle Cell Disease: No Sleep Apnea: No Tetanus Vaccination: < 5 Years Influenza Vaccination: Yes Past Surgical History Narrative Surgical The patient's past surgical history is significant for an appendectomy, vasectomy, right wrist ORIF. Abdominal Surgery: Yes AICD: No Appendectomy: Yes (1982) Arteriovenous Shunt: No Cardiac Surgery: Yes Ear Surgery: No Endocrine Surgery: No Eye Surgery: No Genitourinary Surgery: Yes Gynecologic Surgery: No Insulin Pump: No Joint Replacement: No Oral Surgery: No Pacemaker: No Thoracic Surgery: No Other Surgery: Yes (right wrist plate in placed) Social History Alcohol Use: No Tobacco Use: No Substance Use: No Allergies-Medications (Allergen,Severity, Reaction): Coded Allergies: Codeine (Verified Allergy, Severe, Rash, 05/05/15) DENIES ALLERGY 07/05/12 Verapamil (Unverified Allergy, Severe, causes ileus, 05/05/15) Reported Meds & Prescriptions Reported Meds & Active Scripts Active Enalapril (Enalapril Maleate) 5 Mg Tab 5 Mg PO BID Pravachol (Pravastatin) 40 Mg Tab 40 Mg PO HS 30 Days Plavix (Clopidogrel Bisulfate) 75 Mg Tab 75 Mg PO DAILY 30 Days Reported Trulicity Inj (Dulaglutide Inj) 0.75 Mg/0.5 Ml Pen 0.75 Mg SQ WEDNESDAY Aspirin 81 Mg Chew 81 Mg CHEW DAILY Terazosin (Terazosin HCl) 5 Mg Cap 5 Mg PO HS Atenolol 50 Mg Tab 50 Mg PO BID Glipizide 10 Mg Tab 10 Mg PO BIDAC Take 30 minutes before a meal Fenofibrate 160 Mg Tab 160 Mg PO DAILY Review of Systems Except as stated in HPI: all other systems reviewed are Neg General / Constitutional: No: Fever Eyes: No: Visual changes HENT: Positive: Lightheadedness, No: Headaches, Neck Stiffness, Neck Pain Cardiovascular: No: Chest Pain or Discomfort Respiratory: No: Shortness of Breath Gastrointestinal: Positive: Nausea, Vomiting, No: Diarrhea, Abdominal Pain, Hematemesis, Hematochezia, Changes in Bowel Habits, Indigestion, Loss of Appetite Genitourinary: No: Dysuria Musculoskeletal: No: Pain Skin: No Rash Neurologic: Positive: Weakness, Focal Abnormalities (right facial droop persistent since his prior stroke), Sensory Disturbance (left side of the forehead, left cheek), No: Coordination Problem, Change in Mentation, Slurred Speech Psychiatric: No: Depression Endocrine: No: Polydipsia Hematologic/Lymphatic: No: Easy Bruising Physical Exam Narrative General: The patient is a well-developed well-nourished female in no acute distress. Head and Neck exam: Head is normocephalic atraumatic. Eyes: EOMI, pupils are equal round and reactive to light. The patient has lateral nystagmus that does fatigue with lateral gaze bilaterally. Nose: Midline septum with pink mucous membranes Mouth: Dentition unremarkable. Moist mucus membranes. Posterior oropharynx is not erythematous. No tonsillar hypertrophy. Uvula midline. Airway patent. Neck: No palpable lymphadenopathy. No nuchal rigidity. No thyromegaly. Cardiovascular: Regular rate and rhythm without murmurs, gallops, or rubs. No pulse deficit to the extremities and simultaneous auscultation and palpation of his radial artery. Lungs: Clear to auscultation bilaterally. No wheezes, rhonchi, or rales. Abdomen: Soft, without tenderness to palpation in all 4 quadrants of the abdomen. No guarding, rebound, or rigidity. Normal bowel sounds are audible. No tenderness on palpation of McBurney's point. Negative Cardenas's sign. Extremities: No clubbing, cyanosis, or edema. 2+ pulses in all 4 extremities. No calf tenderness on palpation. Back: No spinous process tenderness to palpation. No costovertebral angle tenderness to palpation. Neurologic Exam: Cranial nerves 2-12 were intact on exam, except for a right sided facial droop which has been present since his prior stroke in July 2016, reported tingling sensation, numbness to the left side of the forehead, left cheek. Otherwise, Strength is 5/5 in all 4 extremities. No sensory deficits noted. No dysdiadochokinesis. Good finger to nose and Heel to saucedo bilaterally. Skin Exam: No rash noted. Intact skin that is warm and dry. Data Data Last Documented VS Vital Signs Date Time Temp Pulse Resp B/P Pulse Ox O2 Delivery O2 Flow Rate FiO2 08/24/16 19:50 100 Room Air 08/24/16 19:39 98.0 92 16 191/90 Orders Electrocardiogram (08/24/16 20:05) Prothrombin Time / Inr (Pt) (08/24/16 20:05) Act Partial Throm Time (Ptt) (08/24/16 20:05) Complete Blood Count With Diff (08/24/16 20:05) Comprehensive Metabolic Panel (08/24/16 20:05) Creatine Kinase (Cpk) (08/24/16 20:05) Troponin I (08/24/16 20:05) Urinalysis - C+S If Indicated (08/24/16 20:05) Ct Brain W/O Iv Contrast(Rout) (08/24/16 20:05) Chest, Single Ap (08/24/16 20:05) Ecg Monitoring (08/24/16 20:05) Iv Access Insert/Monitor (08/24/16 20:05) Oximetry (08/24/16 20:05) Ondansetron Inj (Zofran Inj) (08/24/16 20:15) Sodium Chloride 0.9% Flush (Ns Flush) (08/24/16 20:15) Sodium Chlorid 0.9% 500 Ml Inj (Ns 500 M (08/24/16 20:15) Blood Glucose (08/24/16 20:24) Potassium Chloride (Kcl) (08/24/16 22:15) Admit Order (Ed Use Only) (08/24/16 22:04) Labs Laboratory Tests Test 08/24/16 20:30 White Blood Count 11.1 TH/MM3 Red Blood Count 5.62 MIL/MM3 Hemoglobin 15.1 GM/DL Hematocrit 46.6 % Mean Corpuscular Volume 82.9 FL Mean Corpuscular Hemoglobin 26.8 PG Mean Corpuscular Hemoglobin 32.4 % Concent Red Cell Distribution Width 14.9 % Platelet Count 284 TH/MM3 Mean Platelet Volume 8.2 FL Neutrophils (%) (Auto) 81.8 % Lymphocytes (%) (Auto) 13.8 % Monocytes (%) (Auto) 4.2 % Eosinophils (%) (Auto) 0.0 % Basophils (%) (Auto) 0.2 % Neutrophils # (Auto) 9.1 TH/MM3 Lymphocytes # (Auto) 1.5 TH/MM3 Monocytes # (Auto) 0.5 TH/MM3 Eosinophils # (Auto) 0.0 TH/MM3 Basophils # (Auto) 0.0 TH/MM3 CBC Comment DIFF FINAL Differential Comment Prothrombin Time 11.0 SEC Prothromb Time International 1.0 RATIO Ratio Activated Partial 24.6 SEC Thromboplast Time Sodium Level 140 MEQ/L Potassium Level 3.4 MEQ/L Chloride Level 105 MEQ/L Carbon Dioxide Level 24.5 MEQ/L Anion Gap 11 MEQ/L Blood Urea Nitrogen 14 MG/DL Creatinine 1.32 MG/DL Estimat Glomerular Filtration 53 ML/MIN Rate Random Glucose 215 MG/DL Calcium Level 10.3 MG/DL Total Bilirubin 1.1 MG/DL Aspartate Amino Transf 32 U/L (AST/SGOT) Alanine Aminotransferase 32 U/L (ALT/SGPT) Alkaline Phosphatase 71 U/L Total Creatine Kinase 62 U/L Troponin I 0.02 NG/ML Total Protein 7.7 GM/DL Albumin 4.0 GM/DL MDM Medical Decision Making Medical Screen Exam Complete: Yes Emergency Medical Condition: Yes Medical Record Reviewed: Yes Interpretation(s) Last Impressions Head CT 08/24/162004 Signed Impressions: Service Date/Time: Wednesday, August 24, 2016 21:02 - CONCLUSION: Negative for an acute process.. Michael Garcia MD FACR Chest X-Ray 08/24/162004 Signed Impressions: Service Date/Time: Wednesday, August 24, 2016 20:11 - CONCLUSION: Compensated cardiomegaly otherwise negative Cardiac event recorder is noted.. Board Certified Radiologist. This report was verified electronically. Differential Diagnosis Recurrent ischemic stroke, versus electrolyte derangements, versus dehydration, versus intracranial hemorrhage Narrative Course During the course of the patients emergency department visit, the patients history, examination, and differential diagnosis were reviewed with the patient. The patient had IV access obtained and blood work sent for analysis. The patient was placed on a enamel applier with oximetry and blood pressure monitoring. An ECG was done on arrival. The patient's ECG reveals a sinus rhythm heart rate of 86, right bundle branch block, no acute ST segment elevation or depression, T waves are inverted in lead 3, aVF, V1, V3. The patient was initially provided normal saline a 500 mL bolus, Zofran 4 mg IV. The patient's onset of tingling/numbness to the left side of the forehead and left cheek began at 1 PM. The patient is therefore out of the time frame for administration of TPA if this is indeed related to a new ischemic stroke. The patients laboratory studies were reviewed and remarkable for a white count 11.1, hemoglobin 15.1, platelets 284 with 81.8 neutrophils, CMP is remarkable for potassium of 3.4 which was supplemented orally, creatinine 1.32, glucose 2: 15, calcium 10.3, total bilirubin 1.1, PT 11, PTT 24.6, urinalysis shows 2000 glucose, trace ketones, otherwise unremarkable Radiology studies were reviewed and remarkable for a chest x-ray that shows, dictated cardiomegaly otherwise negative, cardiac event recorder is noted. I spoke to Dr. Adame at 9:54 PM regarding this patient's case. He recommended that the patient be continued on his current low-dose aspirin and Plavix daily. The patients results were discussed with the patient, including the plan of care. I explained that further testing and/ or monitoring is indicated based on the patients history, examination, and/ or laboratory findings. Therefore, I recommended admission for additional evaluation. The patient expressed understanding and was agreeable with this plan. The patient was admitted to the hospital in stable condition and sent to a bed under the care of [facility]. Physician Communication Physician Communication The patient's case was discussed with Dr. Motta who did agree to admit the patient for further evaluation and treatment at this time. The patient's case was also discussed with Dr. Fitch the covering physician for Dr. Weeks the neurologist previously caring for the patient. Diagnosis Primary Impression: Numbness and tingling of left side of face Additional Impressions: Recent cerebrovascular accident Patent foramen ovale Admitting Information Admitting Physician Requests: Admit Shoshana Suggs MD Aug 24, 2016 20:24
--- NOTE | 2016-08-24 20:45 | RADRPT ---
EXAM DATE/TIME: 08/24/2016 20:11 [facility] COMPARISON: No previous studies available for comparison. INDICATIONS : Chest pain. MEDICAL HISTORY : Cardiovascular disease. Hypertension. Diabetes mellitus type 2. SURGICAL HISTORY : Appendectomy. ENCOUNTER: Initial ACUITY: 1 day PAIN SCORE: 3/10 LOCATION: Bilateral chest FINDINGS: There is moderate elevation of the right hemidiaphragm. The lungs are clear. The heart is minimally enlarged. The pulmonary vascularity is normal. There is n o evidence for infiltrate or failure. The portion of the bony skeleton visualized is unremarkable. CONCLUSION: Compensated cardiomegaly otherwise negative Cardiac event recorder is noted.. Board Certified Radiologist. This report was verified electronically.
[2016-08-24 21:02] LABS: AUTOMATED NEUTROPHIL # 9.1 TH/MM3 (1.8-7.7); BASOPHIL % 0.2 % (0.0-2.0); HEMATOCRIT 46.6 % (39.0-51.0); HEMO FLAGS DIFF FINAL; LYMPH % 13.8 % (9.0-44.0); LYMPHOCYTE # 1.5 TH/MM3 (1.0-4.8); MEAN CELL VOLUME 82.9 FL (80.0-100.0); MEAN CORPUSCULAR HEMOGLOBIN 26.8 PG (27.0-34.0); MEAN CORPUSCULAR HGB CONC 32.4 % (32.0-36.0); MONO % 4.2 % (0.0-8.0); NEUT % 81.8 % (16.0-70.0); PLATELET COUNT 284 TH/MM3 (150-450); RED BLOOD COUNT 5.62 MIL/MM3 (4.50-5.90); RED CELL DISTRIBUTION WIDTH 14.9 % (11.6-17.2); WHITE BLOOD COUNT 11.1 TH/MM3 (4.0-11.0)
[2016-08-24 21:12] LABS: APTT (PATIENT) 24.6 SEC (24.3-30.1)
--- NOTE | 2016-08-24 21:16 | RADRPT ---
EXAM DATE/TIME: 08/24/2016 21:02 [facility] COMPARISON: CT BRAIN W/O CONTRAST, August 07, 2016, 11:43. INDICATIONS : Patient complains of dizziness,nausea and left facial numbness. RADIATION DOSE: 56.35 CTDIvol (mGy) MEDICAL HISTORY : Cerebrovascular disease. Cardiovascular disease Hypertension. SURGICAL HISTORY : Appendectomy. ENCOUNTER: Initial ACUITY: 1 day PAIN SCALE: 0/10 LOCATION: cranial TECHNIQUE: Multiple contiguous axial images were obtained of the head. Using automated exposure control and adj ustment of the mA and/or kV according to patient size, radiation dose was kept as low as reasonably a chievable to obtain optimal diagnostic quality images. DICOM format image data is available electro nically for review and comparison. FINDINGS: SUPERTENTORIUM; The ventricles are normal for age. There is no parenchymal hemorrhage, midline s hift, mass lesion, or acute infarction. No extra-axial fluid collections are seen. POSTERIOR FOSSA: The cerebellum and brainstem are intact. The 4th ventricle is midline. The cerebellopontine angle i s unremarkable. ORBITS/SINUS The visualized portion of the orbits is intact. There is no sinus disease. SKULL: No evidence of skull fracture. CONCLUSION: Negative for an acute process.. Michael Garcia MD FACR on August 24, 2016 at 21:14 Board Certified Radiologist. This report was verified electronically.
[2016-08-24 21:25] LABS: ANION GAP 11 MEQ/L (5-15); AST (GOT) 32 U/L (15-37); BICARBONATE 24.5 MEQ/L (21.0-32.0); BLOOD UREA NITROGEN 14 MG/DL (7-18); CHLORIDE 105 MEQ/L (98-107); GLOMERULAR FILTRATION RATE 53 ML/MIN (>89); POTASSIUM 3.4 MEQ/L (3.5-5.1); SODIUM (NA) 140 MEQ/L (136-145)
[2016-08-24 21:26] LABS: ALT (GPT) 32 U/L (12-78)
[2016-08-24 21:29] LABS: ALKALINE PHOSPHATASE 71 U/L (45-117); TOTAL BILIRUBIN ADULT 1.1 MG/DL (0.2-1.0)
[2016-08-24 21:34] LABS: CREATINE KINASE 62 U/L (39-308)
[2016-08-24] MEDS ORDERED: POTASSIUM CHLORIDE 20 MEQ CONTROLLED RELEASE TAB PO ONE (22:15)
[2016-08-24] MEDS ORDERED: SODIUM CHLORIDE 0.9% FLUSH 5 ML FLUSH IV FLUSH PRN (22:15)
[2016-08-24 22:30] VITALS: BP 211/89; PULSE 68; RESP 18; O2SAT 98
[2016-08-24 22:38] VITALS: BP 185/73; PULSE 68; RESP 18; O2SAT 99
[2016-08-24 23:55] LABS: BLOOD, URINE NEG (NEG); GLUCOSE,URINE 1000 mg/dL (NEG); KETONE, URINE TRACE mg/dL (NEG); MUCUS URINE FEW /lpf (OCC); NITRITE,URINE NEG (NEG); PH, URINE 5.5 (5.0-8.5); SQUAMOUS EPITHELIAL CELL URINE <1 /hpf (0-5); URINE COLOR YELLOW (YELLW/STRAW)
[2016-08-24 23:56] LABS: COMMENT (UR) CATH-CULT NOT IND; CULTURE IF INDICATED CATH CULTURE NOT IND
[2016-08-25] VITALS (12 sets, daily range): BP systolic 150–187; BP diastolic 71–84; PULSE 52–77; RESP 16–24; TEMP 98–98.8; O2SAT 92–97
[2016-08-25] MEDS ORDERED: ONDANSETRON HCL 4 MG/2 ML VIAL IV PUSH PRN (02:15)
--- NOTE | 2016-08-25 03:45 | HHI.HP ---
HPI Service [facility] Primary Care Physician [place] MD Admission Diagnosis Left facial numbness, history of recent stroke Diagnoses: (1) Facial paresthesia (2) History of CVA (cerebrovascular accident) Chief Complaint: nausea/vomiting Travel History International Travel<30 Days: No Contact w/Intl Traveler <30 Da: No Traveled to Known Affected Are: No History of Present Illness Written by Rahel Zelaya, acting as scribe for Dr. Motta on 08/25/16 at 03:30. The patient reports his symptoms began at 10 p.m. on Wednesday. He felt "totally nauseated" and vomited; by 3 a.m. he was vomiting liquid; he reports he continued to experience nausea throughout the next day. He cancelled his 1:00 p.m. appointment with [facility] because of nausea. Then he continued to have dry heaves. He took one tablet of Dramamine and continued to vomit. He took his Plavix and baby aspirin and was able to keep them down but nausea persisted until he got a shot of Zofran here at [facility]. No one else is sick in family with nausea/vomiting; he reports eating out at a restaurant with family the day symptoms started and ate a rather large meal. Denies black or red emesis; color was yellow. Denies abdominal cramping, black or red stool, diarrhea. While he was here in the ED, he developed paresthesias for about an hour located midforehead and outward towards patient's left. These symptoms spontaneously resolved. He was a patient of Dr. Stein, but he no longer is covered under patient's new insurance to see Dr. Stein. He has an implanted cardiac event recorder. Review of Systems Except as stated in HPI: all other systems reviewed are Neg Past Family Social History Past Medical History CVA s/p TPA: 08/06/16 MRI revealed a small acute infarct in a linear orientation along the left frontoparietal motor region with a small punctate infarct in the adjacent deep white matter. Patent Foley [place] CAD - one vessel is 60% blocked Has two "leaky" heart valves Hypertension Migraines BPH Diabetes Mellitus CLARITA on CPAP Dyslipidemia History of stage 2 kidney disease Sciatic Back Pain Denies seizures, thyroid problems, or liver problems. . Past Surgical History Appendectomy 1981 Vastectomy 1982 JUAN Right wrist repair with plate placement - Dr. Hong Cardiac catheterization . Reported Medications Reported Meds & Active Scripts Active Enalapril (Enalapril Maleate) 5 Mg Tab 5 Mg PO BID Pravachol (Pravastatin) 40 Mg Tab 40 Mg PO HS 30 Days Plavix (Clopidogrel Bisulfate) 75 Mg Tab 75 Mg PO DAILY 30 Days Reported Trulicity Inj (Dulaglutide Inj) 0.75 Mg/0.5 Ml Pen 0.75 Mg SQ WEDNESDAY Aspirin 81 Mg Chew 81 Mg CHEW DAILY Terazosin (Terazosin HCl) 5 Mg Cap 5 Mg PO HS Atenolol 50 Mg Tab 50 Mg PO BID Glipizide 10 Mg Tab 10 Mg PO BIDAC Take 30 minutes before a meal Fenofibrate 160 Mg Tab 160 Mg PO DAILY . Allergies: Coded Allergies: Codeine (Verified Allergy, Severe, Rash, 05/05/15) DENIES ALLERGY 07/05/12 Verapamil (Unverified Allergy, Severe, causes ileus, 05/05/15) Active Ordered Medications Current Medications Ondansetron HCl (Zofran Inj) 4 mg ONCE ONCE IVP Last administered on 20:32; Start 08/24/16 at 20:15; Stop 08/24/16 at 20:16; Status DC Sodium Chloride 2 ml 2 ml UNSCH PRN IVF FLUSH AFTER USING IV ACCESS; Start 12/01 at 20:15; Stop 08/24/16 at 22:08; Status DC Sodium Chloride (NS 500 ml Inj) 500 ml @ 500 mls/hr BOLUS ONCE IV Last administered on 08/24/16 20:32; Start 08/24/16 at 20:15; Stop 08/24/16 at 21:14 ; Status DC Potassium Chloride (KCl) 20 meq ONCE ONCE PO Last administered on 08/24/16 22 :29; Start 08/24/16 at 22:15; Stop 08/24/16 at 22:16; Status DC IV Flush (NS Flush) 2 ml BID IV FLUSH ; Start 08/25/16 at 09:00 IV Flush (NS Flush) 2 ml UNSCH PRN IV FLUSH FLUSH AFTER USING IV ACCESS; Start 08/24/16 at 22:15 Ondansetron HCl (Zofran Inj) 4 mg Q6HR PRN IV PUSH NAUSEA OR VOMITING; Start at 02:15 . Family History Mother from [place] age 65, rheumatic fever Nieces x 2 with PFO Brother is 66, has atrial fibrillation Son had PFO, CVA at age 46 y/o Sister with atrial fibrillation s/p ablation . Social History Tobacco: denies Alcohol: very rarely Illicit Drugs: denies . Physical Exam Vital Signs Vital Signs Date Time Temp Pulse Resp B/P Pulse Ox O2 Delivery O2 Flow Rate FiO2 08/25/16 00:47 61 08/25/16 00:13 98.3 60 20 177/82 95 08/24/16 22:38 68 18 185/73 99 Room Air 08/24/16 22:30 68 18 211/89 98 Room Air 08/24/16 19:50 100 Room Air 08/24/16 19:39 98.0 92 16 191/90 96 Room Air Physical Exam GENERAL: This is a well-nourished, well-developed patient, in no apparent distress. He appears younger than his stated age. SKIN: No rashes, ecchymoses or lesions. Cool and dry. HEAD: Atraumatic. Normocephalic. EYES: No scleral icterus. No injection or drainage. ENT: Nose without bleeding, purulent drainage. NECK: Trachea midline. No JVD or lymphadenopathy. CARDIOVASCULAR: Regular rate and rhythm without murmurs, gallops, or rubs. RESPIRATORY: Clear to auscultation. Breath sounds equal bilaterally. No wheezes , rales, or rhonchi. GASTROINTESTINAL: Abdomen soft, non-tender, nondistended. No guarding. MUSCULOSKELETAL: Extremities without clubbing, cyanosis, or edema. No calf tenderness. NEUROLOGICAL: Awake and alert. Right facial droop. Speech minimally impaired/ slurred from prior CVA. . Laboratory Laboratory Tests Test 08/24/16 08/24/16 20:30 23:30 White Blood Count 11.1 Red Blood Count 5.62 Hemoglobin 15.1 Hematocrit 46.6 Mean Corpuscular Volume 82.9 Mean Corpuscular Hemoglobin 26.8 Mean Corpuscular Hemoglobin 32.4 Concent Red Cell Distribution Width 14.9 Platelet Count 284 Mean Platelet Volume 8.2 Neutrophils (%) (Auto) 81.8 Lymphocytes (%) (Auto) 13.8 Monocytes (%) (Auto) 4.2 Eosinophils (%) (Auto) 0.0 Basophils (%) (Auto) 0.2 Neutrophils # (Auto) 9.1 Lymphocytes # (Auto) 1.5 Monocytes # (Auto) 0.5 Eosinophils # (Auto) 0.0 Basophils # (Auto) 0.0 CBC Comment DIFF FINAL Differential Comment Prothrombin Time 11.0 Prothromb Time International 1.0 Ratio Activated Partial 24.6 Thromboplast Time Sodium Level 140 Potassium Level 3.4 Chloride Level 105 Carbon Dioxide Level 24.5 Anion Gap 11 Blood Urea Nitrogen 14 Creatinine 1.32 Estimat Glomerular Filtration 53 Rate Random Glucose 215 Calcium Level 10.3 Total Bilirubin 1.1 Aspartate Amino Transf 32 (AST/SGOT) Alanine Aminotransferase 32 (ALT/SGPT) Alkaline Phosphatase 71 Total Creatine Kinase 62 Troponin I 0.02 Total Protein 7.7 Albumin 4.0 Urine Color YELLOW Urine Turbidity CLEAR Urine pH 5.5 Urine Specific Adrian 1.027 Urine Protein TRACE Urine Glucose (UA) 1000 Urine Ketones TRACE Urine Occult Blood NEG Urine Nitrite NEG Urine Bilirubin NEG Urine Urobilinogen LESS THAN 2.0 Urine Leukocyte Esterase NEG Urine RBC LESS THAN 1 Urine WBC 1 Urine Squamous Epithelial <1 Cells Urine Mucus FEW Microscopic Urinalysis Comment CATH-CULT NOT IND Result Diagram: 08/24/16202908/24/162029 Imaging Last Impressions Head CT 08/24/162004 Signed Impressions: Service Date/Time: Wednesday, August 24, 2016 21:02 - CONCLUSION: Negative for an acute process.. Michael Garcia MD FACR Chest X-Ray 08/24/162004 Signed Impressions: Service Date/Time: Wednesday, August 24, 2016 20:11 - CONCLUSION: Compensated cardiomegaly otherwise negative Cardiac event recorder is noted.. Board Certified Radiologist. This report was verified electronically. . Assessment and Plan Problem List: (1) Facial paresthesia ICD Code: R20.9 Status: Resolved (2) History of CVA (cerebrovascular accident) ICD Code: Z86.73 Status: Chronic Assessment and Plan 75 y/o male with recent CVA now with left forehead paresthesias as well as nausea with vomiting. Left forehead paresthesias - Head CT is negative in the ED - Unable to give tpa given onset of symptoms outside of tpa window - Continuous cardiac telemetry to monitor for arrhythmias - Frequent neuro checks - NIH stroke scale daily - Monitor vital signs every 2 hours 12 and every 4 hours - Allow for permissive hypertension to systolic blood pressure 200 and diastolic 105 - Diet: nothing by mouth for now Nausea and vomiting - Zofran 4 mg IV q6h PRN nausea or vomiting Leukocytosis with neutrophilia: stress vs infectious or inflammatory process - WBC mildly elevated at 11.3 on admission - Recheck CBC in a.m. and follow results - Patient is afebrile thus far Hypokalemia - Potassium 3.4 on admission - Replaced p.o. - Will recheck BMP in a.m. and follow results - Replace as needed Acute on chronic renal insufficiency - BUN 14, creatinine 1.32, estimated GFR 53 - worse compared to prior labs - Received fluid bolus in ED - Repeat BMP in a.m. and follow trends in renal indices - Avoid nephrotoxins DVT prophylaxis - Lovenox 40 mg subcutaneously daily This note was transcribed by scribe [LUKAS Rodriguez]. I, Dr. Марина Motta personally performed the history, physical exam, and medical decision making; and confirmed the accuracy of the information in the transcribed note. Authenticated by Dr. Марина Motta on 08/25/16 at 03:30. Discussed Condition With ER physician, patient, and RN . Rahel Zelaya Aug 25, 2016 03:45 Марина Motta MD Aug 26, 2016 20:56
[2016-08-25] MEDS ORDERED: ENOXAPARIN SODIUM 30 MG/0.3 ML SYRINGE SQ SCH (04:15)
[2016-08-25] MEDS ORDERED: GLUCAGON 1 MG/ML VIAL OTHER PRN (06:45)
[2016-08-25] MEDS ORDERED: DEXTROSE 50% IN WATER 50 ML VIAL(D50) IV PRN (06:45)
[2016-08-25] MEDS: INSULIN ASPART SUPPLEMENTAL SCALE SQ SCH ×4 (07:00→22:20)
[2016-08-25] MEDS: ATENOLOL 50 MG TAB PO SCH ×2 (08:04→21:00)
[2016-08-25] MEDS: ASPIRIN 81 MG CHEW TAB CHEW SCH (08:04)
[2016-08-25] MEDS: CLOPIDOGREL 75 MG TAB PO SCH (08:04)
[2016-08-25] MEDS: SODIUM CHLORIDE 0.9% FLUSH 5 ML FLUSH IV FLUSH SCH ×2 (08:05→21:00)
[2016-08-25] MEDS ORDERED: ENALAPRIL MALEATE 5 MG TAB PO SCH (09:00)
--- NOTE | 2016-08-25 09:53 | HHI.PR ---
Subjective Remarks Follow-up for transient facial paresthesias. From Wednesday afternoon to Wednesday morning the patient was having intractable nausea and vomiting. He doesn't think he missed any medications during that time. Currently he is tolerating full diet with no further nausea. Yesterday afternoon he had transient left facial tingling which prompted him to come to the ED. Symptoms lasted approximately one hour, and have not recurred overnight. Neurology was contacted from the ED and recommended continue on aspirin and Plavix. The patient was recently admitted for stroke. He denies any other new neurological deficits. He was previously on amlodipine 10 mg daily and enalapril 20 mg twice daily, but these medications were decreased/discontinued on his previous hospitalization. Objective Vitals Vital Signs Date Time Temp Pulse Resp B/P Pulse Ox O2 Delivery O2 Flow Rate FiO2 08/25/16 08:00 52 08/25/16 07:13 98.0 56 24 187/79 95 08/25/16 06:34 98.0 60 18 171/72 92 08/25/16 00:47 61 08/25/16 00:13 98.3 60 20 177/82 95 08/24/16 22:38 68 18 185/73 99 Room Air 08/24/16 22:30 68 18 211/89 98 Room Air 08/24/16 19:50 100 Room Air 08/24/16 19:39 98.0 92 16 191/90 96 Room Air Result Diagram: 08/24/16202908/24/162029 Imaging Last Impressions Head CT 08/24/162004 Signed Impressions: Service Date/Time: Wednesday, August 24, 2016 21:02 - CONCLUSION: Negative for an acute process.. Michael Garcia MD FACR Chest X-Ray 08/24/162004 Signed Impressions: Service Date/Time: Wednesday, August 24, 2016 20:11 - CONCLUSION: Compensated cardiomegaly otherwise negative Cardiac event recorder is noted.. Board Certified Radiologist. This report was verified electronically. Objective Remarks GENERAL: Well-developed well-nourished. In no acute distress. SKIN: Warm and dry. No lesions noted. HEENT: Normocephalic. Pupils equal and round. Mucous membranes pink and moist. CARDIOVASCULAR: Regular rate and rhythm. No murmur appreciated. RESPIRATORY: No accessory muscle use. Clear to auscultation. Breath sounds equal bilaterally. GASTROINTESTINAL: Abdomen soft, non-tender, nondistended. Bowel sounds x4. MUSCULOSKELETAL: No obvious deformities. No clubbing or cyanosis. No edema. NEUROLOGICAL: Awake and alert. Chronic neurologic symptoms per patient. Right facial droop, chronic. Moves upper and lower extremities spontaneously. Slightly slurred speech, chronic. Strength 5/5. PSYCHIATRIC: Appropriate mood and affect; insight and judgment normal. A/P Problem List: (1) Facial paresthesia ICD Code: R20.9 Status: Resolved (2) History of CVA (cerebrovascular accident) ICD Code: Z86.73 Status: Chronic (3) Hypertension ICD Code: I10 Status: Acute Assessment and Plan 75 y/o male with recent CVA now with left forehead paresthesias as well as nausea with vomiting. Transient left forehead paresthesias, possible TIA: Suspect secondary to elevated BP, was 191/[address] was negative in the ED. Neurology, Dr. Adame, was contacted from the ED reportedly recommended to continue on aspirin and Plavix. - Continuous cardiac telemetry to monitor for arrhythmias - Neuro checks - NIH stroke scale daily - Controlled BP - Neurology consulted - PT/ST Hypertensive urgency: BP remains persistently elevated, currently 187/79. Possibly associated with facial paresthesias as above. -Resumed atenolol, terazosin, and enalapril. -Resume previous dose of amlodipine. -May need to increase enalapril to previous dose. Nausea and vomiting: Resolved prior to admission - Diet as tolerated - Zofran 4 mg IV q6h PRN nausea or vomiting Hypokalemia: Potassium 3.4 on admission. - Replaced p.o. - Repeat BMP pending - Replace as needed GERALD: Creatinine 1.32, previously 1.01 on 08/08/16. Likely secondary to vomiting as above. - Received fluid bolus in ED - Repeat BMP pending - Avoid nephrotoxins DVT prophylaxis - Lovenox 40 mg subcutaneously daily Discharge Planning Follow-up labs and monitor BP. Follow neurology recommendations. Addendum 1600 Previously discussed with neurology. Check brain MRI to assess for extension of previous stroke. If extension of stroke, will need cardiology evaluation for PFO closure. Brain MRI does show a subtle area of new cortical infarct that appears to extend from the previous infarct. Consult patient's [place] to eval PFO with recurrent stroke. Admit to inpatient. Problem Qualifiers (1) Hypertension: Qualified Code: I10 - Essential hypertension Benjamin Bee Aug 25, 2016 09:53
--- NOTE | 2016-08-25 10:00 | EKG ---
Date Performed: 08/24/2016 Time Performed: 19:52:37 PTAGE: 75 years EKG: Sinus rhythm POSSIBLE LEFT ATRIAL ENLARGEMENT RIGHT BUNDLE BRANCH BLOCK ABNORMAL ECG Compared to prior tracing no significant change PREVIOUS TRACING : 08/06/16 DOCTOR: Maximino Suggs Interpretating Date/Time 08/25/2016 09:54:50
[2016-08-25 12:29] LABS: AUTOMATED NEUTROPHIL # 6.4 TH/MM3 (1.8-7.7); BASOPHIL % 0.3 % (0.0-2.0); EOSINOPHIL # 0.1 TH/MM3 (0-0.4); EOSINOPHIL % 0.9 % (0.0-4.0); HEMATOCRIT 39.9 % (39.0-51.0); HEMO FLAGS DIFF FINAL; LYMPH % 21.8 % (9.0-44.0); MEAN CELL VOLUME 81.9 FL (80.0-100.0); MEAN CORPUSCULAR HEMOGLOBIN 27.6 PG (27.0-34.0); MEAN CORPUSCULAR HGB CONC 33.7 % (32.0-36.0); PLATELET COUNT 263 TH/MM3 (150-450); RED BLOOD COUNT 4.88 MIL/MM3 (4.50-5.90); RED CELL DISTRIBUTION WIDTH 15.1 % (11.6-17.2); WHITE BLOOD COUNT 9.2 TH/MM3 (4.0-11.0)
[2016-08-25 12:51] LABS: BICARBONATE 25.1 MEQ/L (21.0-32.0); POTASSIUM 3.4 MEQ/L (3.5-5.1)
--- NOTE | 2016-08-25 12:52 | MB ---
cc: ART STRICKLAND M.D. DATE OF CONSULTATION 08/25/2016 DATE OF 1940 REASON FOR CONSULTATION Recent history of stroke with some dysarthria with recent admission now of severe dizziness, and nausea. HISTORY The patient is a pleasant 75-year-old man recently discharge from the hospital. He started having nausea and vomiting at 3 o'clock, unable to walk because of dizziness. He was brought in for reevaluation. Currently he does not feel dizzy or lightheaded. He feels better. He still has dysarthria. He is currently on Plavix and aspirin. He was given some Zofran here he was to have an appointment Dr. Lanier today, but unfortunate he is here. He does have a history of recent PFO that was found. PAST MEDICAL HISTORY 1. Stroke status post TPA 08/06/2016 with a small infarct in a linear orientation of the left frontal parietal region and a small punctate in the white matter. 2. He does have also history of PFO, heart disease, one-vessel 60% blockage. 3. Heart valve disease 4. Hypertension 5. Migraines 6. BPH 7. Diabetes 8. Sleep apnea on C-PAP 9. Dyslipidemia 10. Sciatica 11. Stage II kidney disease PAST SURGICAL HISTORY 1. JUAN 2. Wrist surgery 3. Cardiac cath 4. Vasectomy 5. Appendectomy HOME MEDICINES 1. Enalapril 2. Pravachol 3. Plavix 4. Trulicity 5. Aspirin 6. Baby aspirin 7. Terazosin 8. Atenolol 9. Glipizide 10. Fenofibrate ALLERGIES CODEINE AND VERAPAMIL. FAMILY HISTORY Interestingly Has two nieces with PFO. His brother has A. Fib, son had a PFO. SOCIAL HISTORY No tobacco, rarely drinks, no drugs. PHYSICAL EXAM VITAL SIGNS: Temperature 98, heart rate 52, respiratory rate 24, blood pressure 187/79, sating at 95%. NECK: Supple. No appreciable bruits. HEART: Regular. NEUROLOGIC: He is awake, alert. He is oriented, follows commands. Face looks fairly symmetrical. He does exhibit some trouble repeating complex phrases. There is some mild dysarthria. No drift. No leg lag. Cerebellar testing is normal. DTRs 1+. Toes withdraws. Sensory is normal. Gait is withheld. LABORATORY DATA Hemoglobin 15.1, platelets 284,000, white count 11.1. Chemistry potassium 3.4, creatinine 1.32, GFR 53, glucose 215. His last A1c in July was 12.1. Urine was unremarkable. Recent CT of the head did not show any acute process. IMPRESSION A 75-year-old man with a history of stroke with severe dizziness, had a very elevated blood pressure on presentation. Recommend repeating an MRI just to make sure there was no extension of the stroke. Continue his aspirin and Plavix. If there is no extension of the stroke from a neurological perspective, certainly he can be discharged. If there is, then I would consult cardiology regarding the PFO for possible intervention and then at that point in time I think he would benefit from anticoagulation. He needs adequate blood pressure control. I know his LONG inhibitor was decreased at discharge so his LONG inhibitor may need to be increased. I will go ahead and get an MRI and further recommendations will be made if needed. MD KATHLEEN Hartman/CARLOS /11:47 AM /12:46 PM
[2016-08-25] MEDS ORDERED: POTASSIUM CHLORIDE 20 MEQ CONTROLLED RELEASE TAB PO ONE (13:45)
[2016-08-25] MEDS: SODIUM CHLOR 0.9% 1000 ML INJ 1,000 ML IV SCH (14:26)
--- NOTE | 2016-08-25 15:54 | RADRPT ---
EXAM DATE/TIME: 08/25/2016 14:03 [place] COMPARISON: CT BRAIN W/O CONTRAST, August 24, 2016, 21:02. MRI BRAIN W/O CONTRAST, August 06, 2016, 15:27. INDICATIONS : CVA. MEDICAL HISTORY : Hypertension. Diabetes. SURGICAL HISTORY : Appendectomy. Wrist. Loop recorder. Vasectomy. ENCOUNTER: Subsequent ACUITY: 2 day PAIN SCORE: 3/10 LOCATION: cranial TECHNIQUE: Multiplanar, multisequence MRI of the brain was performed without contrast. FINDINGS: The diffusion restriction images demonstrate a small area restricted diffusion in the left parietal c ortex. This is slightly posterior to the area of cortical infarct which was seen on the patient's pre vious dated 08/06/16. The T2-weighted images demonstrate scattered areas of increased T2 signal white matter consistent wit h mild microvascular ischemic demyelinative change. The ventricles are normal in size and configuration. No abnormal extra-axial fluid collections are se en. The appearance of the posterior fossa is unremarkable. The visualized portions of sinuses and orbits are clear. Sagittal T1-weighted images demonstrate normal formation of the corpus callosum and midline structure s. The cerebellar tonsils are in their appropriate location. CONCLUSION: 1. There is a subtle area of new cortical infarct which is posterior to the original area of infarct which was seen on previous of 08/06/16. This would suggest a small area of extension of the infarct. O f note, there is no gross hemorrhage obvious on the CT. There is however some signal dropout on the S WI images suggesting some degree of subradiographic parenchymal hemorrhage within this. Leif Garcia MD on August 25, 2016 at 15:47 Board Certified Radiologist. This report was verified electronically.
[2016-08-25] MEDS ORDERED: ENALAPRIL MALEATE 5 MG TAB PO ONE (16:30)
[2016-08-25] MEDS: DOCUSATE SODIUM 100 MG CAP PO SCH ×2 (17:00→21:00)
--- NOTE | 2016-08-25 17:41 | PD.CONS ---
HPI Consult Requested By Primary Care Physician Sea Bah MD History of Present Illness 75-year-old man admitted with nausea and vomiting unable to walk because of dizziness. PMHx significant fo recent ischemic CVA with residual dysarthria, PFO , He was brought in for reevaluation. He is currently on Plavix and aspirin. Head CT unremarkable however MRI shows a subtle area of new cortical infarct which is posterior to the original area of infarct suggesting a small area of extension of the infarct. Cardiology consulted fo further evaluation and management. Review of Systems Consitutional: DENIES: Fatigue, Fever, Chills, Weight gain, Weight loss Eyes: DENIES: Amaurosis Fugax, Change in vision HEENT: DENIES: Lightheadedness, Change in hearing Respiratory: DENIES: See HPI, Cough, Snoring, Shortness of breath, Wheezing, Sputum production Cardiovascular: DENIES: See HPI, Chest pain, Palpitations, Syncope, Tachycardia Gastrointestinal: DENIES: Nausea, Vomiting, Change in bowel habits, Reflux, Bloody stools, Melena Genitourinary: DENIES: Urinary incontinence, Difficulty voiding Integumentary: DENIES: Rash Neurologic: DENIES: Tingling or numbness, Memory problems, Poor Balance, Stroke symptoms Musculoskeletal: DENIES: Joint pain, Muscle pain, Limited range of motion, Back pain Psychiatric: DENIES: Anxiety, Depression, Sleep disturbances Hematologic: DENIES: Bruising tendencies, Bleeding tendencies Endocrine: DENIES: Weight gain, Weight loss, Thyroid disease Past Family Social History Allergies: Coded Allergies: Codeine (Verified Allergy, Severe, Rash, 05/05/15) DENIES ALLERGY 07/05/12 Verapamil (Unverified Allergy, Severe, causes ileus, 05/05/15) Past Medical History 1. Stroke status post TPA 08/06/2016 with a small infarct in a linear orientation of the left frontal parietal region and a small punctate in the white matter. 2. PFO 3. Heart valve disease 4. Hypertension 5. Migraines 6. BPH 7. Diabetes 8. Sleep apnea on C-PAP 9. Dyslipidemia 10. Sciatica 11. Stage II kidney disease Past Surgical History Wrist surgery Cardiac cath Vasectomy Appendectomy Reported Medications Reported Meds & Active Scripts Active Enalapril (Enalapril Maleate) 5 Mg Tab 5 Mg PO BID Pravachol (Pravastatin) 40 Mg Tab 40 Mg PO HS 30 Days Plavix (Clopidogrel Bisulfate) 75 Mg Tab 75 Mg PO DAILY 30 Days Reported Trulicity Inj (Dulaglutide Inj) 0.75 Mg/0.5 Ml Pen 0.75 Mg SQ WEDNESDAY Aspirin 81 Mg Chew 81 Mg CHEW DAILY Terazosin (Terazosin HCl) 5 Mg Cap 5 Mg PO HS Atenolol 50 Mg Tab 50 Mg PO BID Glipizide 10 Mg Tab 10 Mg PO BIDAC Take 30 minutes before a meal Fenofibrate 160 Mg Tab 160 Mg PO DAILY Active Ordered Medications Current Medications Medications (Trade) Dose Ordered Sig/Babak Route Start Time Stop Time Status Last Admin (NS Flush) 2 ml BID IV FLUSH 08/25/16 09:00 08/25/16 08:05 (NS Flush) 2 ml UNSCH PRN IV FLUSH 08/24/16 22:15 (Zofran Inj) 4 mg Q6HR PRN IV PUSH 08/25/16 02:15 (Aspirin Chew) 81 mg DAILY CHEW 08/25/16 09:00 08/25/16 08:04 (Tenormin) 50 mg BID PO 08/25/16 09:00 (Plavix) 75 mg DAILY PO 08/25/16 09:00 08/25/16 08:04 (Pravachol) 40 mg HS PO 08/25/16 21:00 (Hytrin) 5 mg HS PO 08/25/16 21:00 (Lovenox Inj) 40 mg Q24H SQ 08/26/16 04:15 (D50w (Vial) Inj) 50 ml UNSCH PRN IV 08/25/16 06:45 (Glucagon Inj) 1 mg UNSCH PRN OTHER 08/25/16 06:45 Amlodipine Besylate 10 mg 10 mg DAILY PO 08/25/16 10:00 08/25/16 10:23 (NS 1000 ml Inj) 1,000 ml @ 84 mls/hr [id number] IV 08/25/16 13:45 08/25/16 14:26 (Vasotec) 10 mg BID PO 08/25/16 21:00 (Colace) 100 mg BID PO 08/25/16 17:00 08/25/16 17:00 Family History Social History No tobacco, rarely drinks, no drugs. Physical Exam Vital Signs Vital Signs Date Time Temp Pulse Resp B/P Pulse Ox O2 Delivery O2 Flow Rate FiO2 08/25/16 15:40 98.0 57 20 168/73 95 08/25/16 15:05 55 08/25/16 12:24 98.0 56 18 174/76 94 08/25/16 08:00 52 08/25/16 07:13 98.0 56 24 187/79 95 08/25/16 06:34 98.0 60 18 171/72 92 08/25/16 00:47 61 08/25/16 00:13 98.3 60 20 177/82 95 08/24/16 22:38 68 18 185/73 99 Room Air 08/24/16 22:30 68 18 211/89 98 Room Air 08/24/16 19:50 100 Room Air 08/24/16 19:39 98.0 92 16 191/90 96 Room Air Laboratory Laboratory Tests Test 08/24/16 08/24/16 08/25/16 20:30 23:30 11:30 White Blood Count 11.1 9.2 Red Blood Count 5.62 4.88 Hemoglobin 15.1 13.4 Hematocrit 46.6 39.9 Mean Corpuscular Volume 82.9 81.9 Mean Corpuscular Hemoglobin 26.8 27.6 Mean Corpuscular Hemoglobin 32.4 33.7 Concent Red Cell Distribution Width 14.9 15.1 Platelet Count 284 263 Mean Platelet Volume 8.2 8.1 Neutrophils (%) (Auto) 81.8 69.0 Lymphocytes (%) (Auto) 13.8 21.8 Monocytes (%) (Auto) 4.2 8.0 Eosinophils (%) (Auto) 0.0 0.9 Basophils (%) (Auto) 0.2 0.3 Neutrophils # (Auto) 9.1 6.4 Lymphocytes # (Auto) 1.5 2.0 Monocytes # (Auto) 0.5 0.7 Eosinophils # (Auto) 0.0 0.1 Basophils # (Auto) 0.0 0.0 CBC Comment DIFF FINAL DIFF FINAL Differential Comment Prothrombin Time 11.0 Prothromb Time International 1.0 Ratio Activated Partial 24.6 Thromboplast Time Sodium Level 140 141 Potassium Level 3.4 3.4 Chloride Level 105 107 Carbon Dioxide Level 24.5 25.1 Anion Gap 11 9 Blood Urea Nitrogen 14 17 Creatinine 1.32 1.30 Estimat Glomerular Filtration 53 54 Rate Random Glucose 215 208 Calcium Level 10.3 9.5 Total Bilirubin 1.1 Aspartate Amino Transf 32 (AST/SGOT) Alanine Aminotransferase 32 (ALT/SGPT) Alkaline Phosphatase 71 Total Creatine Kinase 62 Troponin I 0.02 Total Protein 7.7 Albumin 4.0 Urine Color YELLOW Urine Turbidity CLEAR Urine pH 5.5 Urine Specific Baker 1.027 Urine Protein TRACE Urine Glucose (UA) 1000 Urine Ketones TRACE Urine Occult Blood NEG Urine Nitrite NEG Urine Bilirubin NEG Urine Urobilinogen LESS THAN 2.0 Urine Leukocyte Esterase NEG Urine RBC LESS THAN 1 Urine WBC 1 Urine Squamous Epithelial <1 Cells Urine Mucus FEW Microscopic Urinalysis Comment CATH-CULT NOT IND Magnesium Level 2.1 Result Diagram: 08/25/16 1130 08/25/16 1130 Imaging Last Impressions Brain MRI 08/25/16 0000 Signed Impressions: Service Date/Time: Thursday, August 25, 2016 14:03 - CONCLUSION: 1. There is a subtle area of new cortical infarct which is posterior to the original area of infarct which was seen on previous of 08/06/16. This would suggest a small area of extension of the infarct. Of note, there is no gross hemorrhage obvious on the CT. There is however some signal dropout on the SWI images suggesting some degree of subradiographic parenchymal hemorrhage within this. Leif Garcia MD Head CT 08/24/162004 Signed Impressions: Service Date/Time: Wednesday, August 24, 2016 21:02 - CONCLUSION: Negative for an acute process.. Michael Garcia MD FACR Chest X-Ray 08/24/162004 Signed Impressions: Service Date/Time: Wednesday, August 24, 2016 20:11 - CONCLUSION: Compensated cardiomegaly otherwise negative Cardiac event recorder is noted.. Board Certified Radiologist. This report was verified electronically. Assessment and Plan Problem List: (1) PFO (patent foramen ovale) Assessment and Plan: Recurrent CVA despite optimal medical management. He has a documented PFO with L to Right shunt on JUAN. PFO closure recommended. Risk benefits including but not limited to bleeding, neurovascular trauma, infection , acute kidney injury, cva, emergent open heart surgery and explained to the patient. Patient understands risk and is willing to proceed. Recommendations: 1. NPO after midnight for PFO closure in AM (2) History of CVA (cerebrovascular accident) (3) Hypertension (4) Acute CVA (cerebrovascular accident) (5) Diabetes mellitus (6) Dyslipidemia Problem Qualifiers (1) Hypertension: Qualified Code: I10 - Essential hypertension Jose Antonio Robles MD Aug 25, 2016 17:41
[2016-08-25] MEDS: PRAVASTATIN SOD 40 MG TAB PO SCH (22:16)
[2016-08-25] MEDS: ENALAPRIL MALEATE 10 MG TAB PO SCH (22:18)
[2016-08-25] MEDS: TERAZOSIN HCL 5 MG CAP PO SCH (22:20)
[2016-08-26] VITALS (14 sets, daily range): BP systolic 115–167; BP diastolic 67–80; PULSE 20–75; RESP 16–20; TEMP 95.7–98.1; O2SAT 94–96
[2016-08-26] MEDS: SODIUM CHLOR 0.9% 1000 ML INJ 1,000 ML IV SCH ×2 (01:59→13:35)
[2016-08-26] MEDS: ENOXAPARIN SODIUM 40 MG/0.4 ML SYRINGE SQ SCH (04:15)
[2016-08-26] MEDS: INSULIN ASPART SUPPLEMENTAL SCALE SQ SCH ×4 (06:07→21:45)
[2016-08-26 06:18] LABS: BICARBONATE 24.6 MEQ/L (21.0-32.0); POTASSIUM 3.4 MEQ/L (3.5-5.1)
[2016-08-26] MEDS ORDERED: POTASSIUM CHLORIDE 20 MEQ CONTROLLED RELEASE TAB PO ONE (08:15)
[2016-08-26] MEDS: ASPIRIN 81 MG CHEW TAB CHEW SCH (08:40)
[2016-08-26] MEDS: ATENOLOL 50 MG TAB PO SCH ×2 (08:40→21:00)
[2016-08-26] MEDS: ENALAPRIL MALEATE 10 MG TAB PO SCH ×2 (08:41→21:32)
[2016-08-26] MEDS: SODIUM CHLORIDE 0.9% FLUSH 5 ML FLUSH IV FLUSH SCH ×2 (08:41→21:00)
[2016-08-26] MEDS: DOCUSATE SODIUM 100 MG CAP PO SCH ×2 (08:42→21:00)
--- NOTE | 2016-08-26 08:49 | HHI.PR ---
Subjective Remarks Follow up for left facial paresthesias with new infarct/CVA. The patient reports his left facial numbness/tingling has mostly subsided. His speech is at baseline from previous stroke. Denies any visual changes, lightheadedness, or dizziness. Denies any weakness. He states he is slightly anxious about upcoming procedure today. Objective Vitals Vital Signs Date Time Temp Pulse Resp B/P Pulse Ox O2 Delivery O2 Flow Rate FiO2 08/26/16 07:43 97.7 20 20 164/78 96 08/26/16 04:31 50 08/26/16 03:50 98.0 74 18 167/76 96 08/26/16 00:05 55 08/25/16 23:45 98.8 62 16 150/71 92 08/25/16 22:15 55 08/25/16 21:38 98.4 77 18 158/84 97 08/25/16 20:45 57 08/25/16 15:40 98.0 57 20 168/73 95 08/25/16 15:05 55 08/25/16 12:24 98.0 56 18 174/76 94 I/O 08/25/16 08/25/16 08/25/16 08/26/16 08/26/16 08/26/16 07:00 15:00 23:00 07:00 15:00 23:00 Intake Total 720 ml Output Total 400 ml Balance 320 ml Intake Oral 720 ml Output Urine Total 400 ml # Voids 1 1 Result Diagram: 08/25/16 1130 08/26/16 0444 Imaging Last Impressions Brain MRI 08/25/16 0000 Signed Impressions: Service Date/Time: Thursday, August 25, 2016 14:03 - CONCLUSION: 1. There is a subtle area of new cortical infarct which is posterior to the original area of infarct which was seen on previous of 08/06/16. This would suggest a small area of extension of the infarct. Of note, there is no gross hemorrhage obvious on the CT. There is however some signal dropout on the SWI images suggesting some degree of subradiographic parenchymal hemorrhage within this. Leif Garcia MD Head CT 08/24/162004 Signed Impressions: Service Date/Time: Wednesday, August 24, 2016 21:02 - CONCLUSION: Negative for an acute process.. Michael Garcia MD FACR Chest X-Ray 08/24/162004 Signed Impressions: Service Date/Time: Wednesday, August 24, 2016 20:11 - CONCLUSION: Compensated cardiomegaly otherwise negative Cardiac event recorder is noted.. Board Certified Radiologist. This report was verified electronically. Objective Remarks GENERAL: Well-nourished, well-developed pleasant male patient in NAD. SKIN: Warm and dry. No rash. HEENT: Normocephalic. Atraumatic.Pupils equal and round. Mucous membranes pink and moist. NECK: Supple. Trachea midline. CARDIOVASCULAR: Regular rate and rhythm. S1, S2 noted. No murmur appreciated. RESPIRATORY: No accessory muscle use. Clear to auscultation. Breath sounds equal bilaterally. GASTROINTESTINAL: Abdomen soft, non-tender, nondistended. Normoactive bowel sounds x4. MUSCULOSKELETAL: No obvious deformities. Extremities without clubbing, cyanosis , or edema. NEUROLOGICAL: Awake and alert. Motor grossly within normal limits. 5/5 muscle strength in bilateral upper and lower extremities. Slurred speech but easy to understand, at baseline. Right facial droop at baseline with mild flattening of nasolabial fold. PSYCHIATRIC: Appropriate mood and affect; insight and judgment normal. Medications and IVs Current Medications Medications (Trade) Dose Ordered Sig/Babak Route Start Time Stop Time Status Last Admin (NS Flush) 2 ml BID IV FLUSH 08/25/16 09:00 08/25/16 08:05 (NS Flush) 2 ml UNSCH PRN IV FLUSH 08/24/16 22:15 (Zofran Inj) 4 mg Q6HR PRN IV PUSH 08/25/16 02:15 (Aspirin Chew) 81 mg DAILY CHEW 08/25/16 09:00 08/25/16 08:04 (Tenormin) 50 mg BID PO 08/25/16 09:00 (Plavix) 75 mg DAILY PO 08/25/16 09:00 08/25/16 08:04 (Pravachol) 40 mg HS PO 08/25/16 21:00 08/25/16 22:16 (Hytrin) 5 mg HS PO 08/25/16 21:00 08/25/16 22:20 (Lovenox Inj) 40 mg Q24H SQ 08/26/16 04:15 (D50w (Vial) Inj) 50 ml UNSCH PRN IV 08/25/16 06:45 (Glucagon Inj) 1 mg UNSCH PRN OTHER 08/25/16 06:45 Amlodipine Besylate 10 mg 10 mg DAILY PO 08/25/16 10:00 08/25/16 10:23 (NS 1000 ml Inj) 1,000 ml @ 84 mls/hr [id number] IV 08/25/16 13:45 08/26/16 01:59 (Vasotec) 10 mg BID PO 08/25/16 21:00 08/25/16 22:18 (Colace) 100 mg BID PO 08/25/16 17:00 08/25/16 17:00 A/P Problem List: (1) Facial paresthesia ICD Code: R20.9 Status: Resolved (2) History of CVA (cerebrovascular accident) ICD Code: Z86.73 Status: Chronic (3) Hypertension ICD Code: I10 Status: Acute Assessment and Plan 75 y/o male with recent CVA now with left forehead paresthesias as well as nausea with vomiting. Acute on Chronic CVA: presented with transient left forehead paresthesias, Head CT images reviewed and unremarkable however Brain MRI showed subtle area of new cortical infarct posterior to original area of infarct suggesting small extension of the infarct. Neurology, Dr. Adame, was contacted from the ED reportedly recommended to continue on aspirin and Plavix. - continue patient's aspirin and plavix - Continuous cardiac telemetry to monitor for arrhythmias - Neuro checks, NIH stroke scale daily - Control BP - Neurology consulted, appreciate recommendations - PT/ST - consult stroke navigator PFO: JUAN on previous admission 08/09/16 showed PFO with right to left atrial shunt. - consulted cardiology - plan for closure today 08/26 Hypertensive urgency secondary to Accelerated Hypertension: BP 211/89 upon arrival. Likely secondary to recent nausea/vomiting prior to arrival. - Resumed atenolol, terazosin, and enalapril. - Resume previous dose of amlodipine. - May need to increase enalapril to previous dose. - continue to monitor BP and adjust antihypertensives as needed Nausea and vomiting: Resolved prior to admission - Diet as tolerated - Zofran 4 mg IV q6h PRN nausea or vomiting Hypokalemia: Potassium 3.4 on admission. Mag 2.1. Secondary to recent N/V. - Replaced with oral KCl - Repeat BMP with K 3.4, given additional KCl replacement - Replace as needed GERALD: Creatinine 1.32, previously 1.01 on 08/08/16. Likely secondary to vomiting as above. - Received fluid bolus in ED - Repeat BMP with improvement, Cr 1.04. - Avoid nephrotoxins DVT prophylaxis - Lovenox 40 mg subcutaneously daily Discharge Planning Admitted to inpatient with new CVA. Going for PFO closure today. Problem Qualifiers (1) Hypertension: Qualified Code: I10 - Essential hypertension Ruthie Fuller PA-C Aug 26, 2016 8:49 am
[2016-08-26] MEDS: CLOPIDOGREL 75 MG TAB PO SCH (09:10)
--- NOTE | 2016-08-26 10:13 | HHI.PR ---
Subjective Remarks no new changes mri with small extension of infarct noted. will have PFO closure today or tomorrow. Objective Vital Signs Date Time Temp Pulse Resp B/P Pulse Ox O2 Delivery O2 Flow Rate FiO2 08/26/16 09:19 95.7 61 20 140/80 96 08/26/16 07:43 97.7 20 20 164/78 96 08/26/16 04:31 50 08/26/16 03:50 98.0 74 18 167/76 96 08/26/16 00:05 55 08/25/16 23:45 98.8 62 16 150/71 92 08/25/16 22:15 55 08/25/16 21:38 98.4 77 18 158/84 97 08/25/16 20:45 57 08/25/16 15:40 98.0 57 20 168/73 95 08/25/16 15:05 55 08/25/16 12:24 98.0 56 18 174/76 94 I/O 08/25/16 08/25/16 08/25/16 08/26/16 08/26/16 08/26/16 07:00 15:00 23:00 07:00 15:00 23:00 Intake Total 720 ml Output Total 400 ml Balance 320 ml Intake Oral 720 ml Output Urine Total 400 ml # Voids 1 1 awake alert some dysarthria motor intact gait bedrest Result Diagram: 08/25/16 1130 08/26/16 0444 Assessment and Plan Assessment and Plan stroke extension pfo -closure of pfo pending -speech therapy -d/c pending once stable post pfo closure. Stefani Mcmahon MD Aug 26, 2016 10:13
[2016-08-26] MEDS ORDERED: HEPARIN-NS/PF INJ 500 ML ONE (12:52)
[2016-08-26] MEDS ORDERED: HEPARIN SODIUM - IV 10,000 UNITS/10 ML VIAL ONE (12:52)
[2016-08-26] MEDS ORDERED: MIDAZOLAM HCL 2 MG/2 ML VIAL ONE (13:12)
[2016-08-26] MEDS ORDERED: PROTAMINE SULFATE 50 MG/5 ML VIAL ONE (14:08)
[2016-08-26] MEDS ORDERED: ceFAZolin INJ 1,000 MG VIAL ONE (14:09)
--- NOTE | 2016-08-26 14:32 | CATHPROC ---
[facility] HIS Report Study Information Study Number Admission Scheduled Start Study Start [id number] Aug 25 2016 4:04PM 08/26/2016 Aug 26 2016 12:43PM [place] Service Cardiac Catheterization Admit Source Facility Department Emergency department [facility] - Label Stitcher Physician and Clinical Staff Initial MD Robles, Jose Antonio Computer Systems Design Analyst Lisa Deal,MÓNICA Additional Neal Toledo cathlab, cathlab Recorder Matilde Allred,DIGESTER OPERATOR HELPER TECH2 Scrub Kanu Marley RCIS(BS) Procedures Performed Procedure Location (Site) Vessel Name ICE CATHETER INSERT Fem Vein (right) Femoral Vein PFO Device Deployed LT. ATRIUM LT. 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 *[id number] AMPLATZER MEDICAL 13:44 SEPTAL OCCLUDER, 30MM FR12 [id number] Used SALES ANA. AMPLATZER MEDICAL 13:55 SEPTAL OCCLUDER, 30MM FR12 [id number] Used SALES ANA. AMPLATZER MEDICAL SYSTEM, FR10 TORQUE DELIV 12:46 FR10 [id number] Used SALES ANA. 80CM AMPLATZER MEDICAL SYSTEM, FR9 TORQUE DELIV 13:40 FR9 [id number] Used SALES ANA. 80CM TRANSDUCER, TRUWAVE [id number] 12:46 REYES DEAL * Used W/STOCKCOCK *[id number] BIOSENSE HEAD [id number] 12:46 CATHETER, ACUNAV FR10 ICE FR 10 Used INC. *[id number] COVER, TRANSDUCER CABLE 12:46 CONE [email or web address] [id number] Used ACUNAV MPIS-502-10.0- INTRODUCER SET, 13:20 COOK INC. FR 5 SC-NT-U-SST Used MICROPUNCTURE, STIFFENED *[id number] MPIS-502-10.0- INTRODUCER SET, 13:20 COOK INC. FR 5 SC-NT-U-SST Used MICROPUNCTURE, STIFFENED *[id number] *[id number] 12:46 CORDIS/PACER SHEATH, FR10 JEFFERSON 11CM FR 10 [id number] Used [id number] 12:46 MEDLINE INDUSTRIES PACK, CCL CUSTOM * Used *[id number] 12:46 [employer] Technologies PACER PEN, SKIN DUAL W/ RULER * Used *[id number] 12:46 [employer]oo MEDICAL WIRE, EXCHANGE 260CM 3MMJ 260CM Used *[id number] 12:46 [employer] MANIFOLD, 4 PORT * Used *[id number] 13:39 NYCOMED OMNIPAQUE, 350 MG, 150ML 150ML [id number] Used [id number] 12:46 [employer] MEDICAL BLANKET,WARM AIR CCL * Used *[id number] PassionTag 13:04 SHEATH, FR11 TURUMO FR 11 [id number] Used COMPANY Equipment Model, Serial, Lot Number and Expiration Data Description Model Number Serial Number Lot Number Expiration Date PERCLOSE, PRO GLIDE CLOSER [id number] 04-14-2018 DEVICE PERCLOSE, PRO GLIDE CLOSER [id number] 04-14-2018 DEVICE History: Current Medications Medication Dosage/Unit Route Frequency Last Date/Time Taken PLAVIX History: Allergies Allergy Reaction Codeine Rash Verapamil causes ileus History: Risk Factors Family History of Hypertension Dyslipidemia Previous ND Previous Heart Failure Premature CAD Yes Yes Yes No No Prior Valve Prior PCI Prior CABG Surgery No No No Cerebrovascular Peripheral Artery Chronic Lung On Dialysis Diabetes Diabetes Therapy Disease Disease Disease No Yes No Yes Yes Oral History: Other Current Smoker No Labs Hgb (g/dl) Hct (%) RBC (MIL/MM3) WBC (l/cumm) Platelets (thousands) 11.60-17.00 35.00-51.00 4.00-5.90 4.00-11.00 150.00-450.00 13.4 39.9 4.8 9.2 263 Glucose (mg/dl) BUN (mg/dl) Creatinine (mg/dl) BUN:Creatinine (1:x) 74.00-106.00 7.00-18.00 0.50-1.30 10.00-20.00 162 17 1.0 17 Na (meq/l) K (meq/l) 136.00-145.00 3.50-5.10 141 3.4 PT (sec) PTT (sec) INR (PTT:PT) 9.80-11.60 24.30-30.10 0.90-1.10 11 24.6 1 Medication Medication Total Dose (Bolus/Oral) Medication Total Dosage/Unit 1% XYLOCAINE 20 mL FENTANYL 25 mcg HEPARIN 7000 units PROTAMINE 10 mg VERSED 1 mg Medications (Bolus/Oral) Medication Time Given Dosage/Unit Administered By Reason 1% XYLOCAINE 08/26/2016 1:16:20 PM 20 mL Jose Antonio Robles 20 mL 1% XYLOCAINE given in lab by Jose Antonio Robles in Right Groin via Subcutaneous. Ordered by Jose Antonio Hutchison. VERSED 08/26/2016 1:16:31 PM 1 mg Lisa Deal 1 mg VERSED given in lab by Lisa Deal RN in Left Antecubital via Peripheral IV. Ordered by C Jose Antonio Spain. FENTANYL 08/26/2016 1:17:54 PM 25 mcg Lisa Deal 25 mcg FENTANYL given in lab by Lisa Deal RN in Left Antecubital via Peripheral IV. Ordered by Jose Antonio Robles. HEPARIN 08/26/2016 1:34:25 PM 5000 units Lisa Deal 5000 units HEPARIN given in lab by Lisa Deal RN in Right Antecubital via Peripheral IV. Orde red by Jose Antonio Robles. HEPARIN 08/26/2016 1:44:03 PM 2000 units Lisa Deal 2000 units HEPARIN given in lab by Lisa Deal RN in Right Antecubital via Peripheral IV. Orde red by Jose Antonio Robles. PROTAMINE 08/26/2016 2:10:06 PM 10 mg Lisa Deal 10 mg PROTAMINE given in lab by Lisa Deal RN in Left Antecubital via Peripheral IV. Ordered by Jose Antonio Robles. Medication (Drip) Medication Time Given Dosage/Unit Concentration/Unit Diluent (ml) Solutio n ANCEF 08/26/2016 2:15:35 PM 2 g 2 g ANCEF given in lab by Lisa Deal RN in Left Antecubital via Peripheral IV. Ordered by Jose Antonio Harman. IV Solutions 08/26/2016 12:43:06 PM 0 mL (IV) 500 NaCl .9 Patient arrived on IV Solutions given by srinivasan mattson in Left Antecubital via Peripheral IV. Pump /Drip Flow = 20 ml/hr using NaCl .9. Ordered by Jose Antonio Robles. Initial Case Assessment Cardiovascular HR NIBP 63 174/83 Edema Present Skin color Skin None Normal Warm Dry Circulatory - Right Pulses Dorsalis Pedis Femoral 3 3 Scale (0,1,2,3,4,d) Circulatory - Left Pulses Dorsalis Pedis Femoral 3 3 Scale (0,1,2,3,4,d) Neurological State Oriented to time-place- Alert Moves all extremities person Respiration - General Respiration Rate SpO2 (%) (B/min) 15 97 Final Case Assessment Cardiovascular HR NIBP 62 178/82 Edema Present Skin color Skin None Normal Warm Dry Circulatory - Right Pulses Dorsalis Pedis Femoral 3 3 Scale (0,1,2,3,4,d) Circulatory - Left Pulses Dorsalis Pedis Femoral 3 3 Scale (0,1,2,3,4,d) Neurological State Oriented to time-place- Alert Moves all extremities person Respiration - General Respiration Rate SpO2 (%) (B/min) 18 97 Chronological Log Time Study Chronological Log 12:42:55 Patient arrived via Bed. 12:42:55 Patient Name, D.O.B, / Armband Verified By R.N. 12:42:56 Consent signed by the physician and the patient and verified by the Label Stitcher staff. 12:42:57 Pre-op and post- op instructions given; patient acknowledges understanding of instructions. 12:42:57 Verbal Stimulation=2 Physical Stimulation=2 Airway=2 Respiration=2 TOTAL=8. (0=absent, 1=li mited, 2=present) 12:42:58 Presedation assessment performed by Label Stitcher RN. 12:42:59 Immediate Presedation assesment performed by physician. 12:42:59 Patient has been NPO for More than 6Hrs. 12:43:00 Skin Breakdown- 12:43:02 Jaquelin Prominences Protected 12:43:03 Patient Warmer Placed on the Table. 12:43:04 A # 20 IV was noted in the Antecubital (left). Grade = 0 Patient arrived on IV Solutions given by cathlab, cathlab in Left Antecubital via Peripheral IV . Pump/Drip Flow = 20 12:43:06 ml/hr using NaCl .9. Ordered by Jose Antonio Robles. 12:43:06 History and physical on the chart or being dictated. Vitals capture started with the following parameters, Patient=Adult, Interval=5 min, Initial Pr iugqyw=316 mmHg, 12:47:06 Deflation Rate=5 mmHg 12:47:12 Reference ECG taken 12:48:19 HR=64 bpm, ZHSB=502/83 mmhg, SpO2=96.0 %, Resp=16 B/min, Pain=0, Courtney=10, Melgar=2 Assessment: Initial Case, HR=63 BPM, QAWS=816/83 mmhg, Edema=None, Color=Normal, Skin = Warm, D ry Right Pulses: Don Ped=3, Femoral=3 12:48:22 Left Pulses: Don Ped=3, Femoral=3 Neurological: State=Alert, Ox3, CISNEROS Respiration: Resp=15 B/min, SpO2=97 % 12:52:49 HR=63 bpm, DTLH=258/83 mmhg, SpO2=95.0 %, Resp=17 B/min, Pain=0, Courtney=10, Melgar=2 12:57:50 HR=64 bpm, HGIG=506/83 mmhg, SpO2=95.0 %, Resp=19 B/min, Pain=0, Courtney=10, Melgar=2 13:02:53 HR=64 bpm, DWOR=982/81 mmhg, SpO2=96.0 %, Resp=14 B/min, Pain=0, Courtney=10, Melgar=2 13:07:54 HR=64 bpm, PVTD=112/77 mmhg, SpO2=95.0 %, Resp=14 B/min, Pain=0, Courtney=10, Melgar=2 13:12:53 HR=66 bpm, ZNBW=727/76 mmhg, SpO2=97 %, Resp=12 B/min, Pain=0, Courtney=10, Melgar=2 13:14:54 Right groin prepped with 2% chlorhexidine, and with a 3 min. waiting time. Time Out. Correct patient, correct procedure,correct physician, ,power injector not loaded with contrast with surgical 13:15:59 team present. Time Out Concurred by MD, individual staff and EXPORT AGENT in procedure Time Out #2 - Consents verified, patient in correct position, all results are labled and displa yed, safety precautions 13:16:00 taken. Time Out concurred by MD, individual staff and EXPORT AGENT in procedure. 13:16:17 Case Start 20 mL 1% XYLOCAINE given in lab by Jose Antonio Robles in Right Groin via Subcutaneous. Ordered b y Margaret, 13:16:20 Jose Antonio. 1 mg VERSED given in lab by Lisa Deal, RN in Left Antecubital via Peripheral IV. Ordere d by Margaret, 13:16:31 Jose Antonio. 13:17:50 HR=68 bpm, GPUF=497/85 mmhg, SpO2=95.0 %, Resp=18 B/min, Pain=0, Courtney=10, Melgar=2 25 mcg FENTANYL given in lab by Lisa Deal, RN in Left Antecubital via Peripheral IV. Or dered by Margaret, 13:17:54 Jose Antonio. 13:19:34 Access site was Right Femoral Vein. A INTRODUCER SET, MICROPUNCTURE, STIFFENED FR 5 was advanced into the Fem Vein (right) using th e Modified 13:19:42 Seldinger technique. A SHEATH, FR10 JEFFERSON 11CM FR 10 was exchanged in the Fem Vein (right). This was necessary in o rder for catheter 13:20:23 support. 13:20:58 Access site was Right Femoral Vein. A INTRODUCER SET, MICROPUNCTURE, STIFFENED FR 5 was advanced into the Fem Vein (right) using th e Modified 13:21:06 Seldinger technique. A SHEATH, FR11 TURUMO FR 11 was exchanged in the Fem Vein (right). This was necessary in order for catheter 13:21:13 support. 13:22:56 HR=66 bpm, MFXZ=895/78 mmhg, SpO2=91.0 %, Resp=14 B/min, Pain=0, Courtney=10, Melgar=2 13:27:00 A GUIDEWIRE, SUPERSTIFF 260CM was inserted via Fem Vein (right). 13:27:08 CATHETER, ACUNAV FR10 ICE FR 10 Was Postioned. 13:27:48 HR=69 bpm, COKW=301/81 mmhg, SpO2=93 %, Resp=19 B/min, Pain=0, Courtney=10, Melgar=2 A SYSTEM, FR10 TORQUE DELIV 80CM FR10 was exchanged in the Fem Vein (right). This was necessary in order for 13:32:16 catheter support. 13:32:48 HR=66 bpm, PRYF=382/83 mmhg, SpO2=91.0 %, Resp=17 B/min, Pain=0, Courtney=10, Melgar=2 5000 units HEPARIN given in lab by Lisa Deal, RN in Right Antecubital via Peripheral IV . Ordered by Boles- 13:34:25 Jose Antonio Victor. 13:37:38 wire across septum 13:37:45 HR=77 bpm, LMWR=010/94 mmhg, SpO2=91 %, Resp=23 B/min, Pain=0, Courtney=10, Melgar=2 A MPA-2 INFINITI CATHETER FR 5 was advanced over a wire. OMNIPAQUE, 350 MG, 150ML 150ML was use d for 13:38:25 injections. 13:40:21 Catheter was removed A SYSTEM, FR9 TORQUE DELIV 80CM FR9 was exchanged in the Fem Art (right). This was necessary in order for 13:40:24 catheter support. 13:42:50 HR=68 bpm, VDFP=123/77 mmhg, SpO2=91.0 %, Resp=14 B/min, Pain=0, Courtney=10, Melgar=2 2000 units HEPARIN given in lab by Lisa Deal, MÓNICA in Right Antecubital via Peripheral I V. Ordered by Boles- 13:44:03 Jose Antonio Victor. 13:44:18 ACT (Normal Range 90-180) = 203 13:46:59 Wire removed 13:47:51 HR=61 bpm, XQDX=148/80 mmhg, SpO2=93.0 %, Resp=15 B/min, Pain=0, Courtney=10, Melgar=2 13:49:41 SEPTAL OCCLUDER, 30MM FR12 did not Deploy. 13:52:50 HR=60 bpm, CTIM=212/75 mmhg, SpO2=94.0 %, Resp=15 B/min, Pain=0, Courtney=10, Melgar=2 13:54:00 occluder's Deployed. 13:57:51 HR=61 bpm, IXLM=801/77 mmhg, SpO2=94.0 %, Resp=14 B/min, Pain=0, Courtney=10, Melgar=2 14:02:52 HR=64 bpm, JXMO=833/73 mmhg, SpO2=95.0 %, Resp=15 B/min, Pain=0, Courtney=10, Melgar=2 14:04:05 PERCLOSE, PRO GLIDE CLOSER DEVICE FR 6 placement in the Fem Vein (right) 14:04:31 PERCLOSE, PRO GLIDE CLOSER DEVICE FR 6 placement in the Fem Vein (right) 14:07:53 HR=61 bpm, PZTG=344/81 mmhg, SpO2=95.0 %, Resp=17 B/min, Pain=0, Courtney=10, Melgar=2 14:09:13 Case End 10 mg PROTAMINE given in lab by Lisa Deal RN in Left Antecubital via Peripheral IV. O rdered by Hamilton 14:10:06 Jose Antonio Victor. 14:11:56 Sterile dressing applied to site 14:12:54 HR=59 bpm, OWRM=316/81 mmhg, SpO2=96.0 %, Resp=14 B/min, Pain=0, Courtney=10, Melgar=2 14:13:34 No case complications noted. 14:13:40 Cine recording checked. 14:14:57 Bedside Report will be given. 14:14:58 Implantable Device card placed in patient's chart. 14:15:01 Contrast Scanned 14:15:35 2 g ANCEF given in lab by Lisa Deal, MÓNICA in Left Antecubital via Peripheral IV. Ord ered by Jose Antonio Robles. 14:17:57 HR=60 bpm, CHOF=270/82 mmhg, SpO2=97.0 %, Resp=14 B/min, Pain=0, Courtney=10, Melgar=2 14:20:16 Patient moved to stretcher Assessment: Final Case, HR=62 BPM, TNYV=000/82 mmhg, Edema=None, Color=Normal, Skin = Warm, Dr y Right Pulses: Don Ped=3, Femoral=3 14:20:21 Left Pulses: Don Ped=3, Femoral=3 Neurological: State=Alert, Ox3, CISNEROS Respiration: Resp=18 B/min, SpO2=97 % 14:21:00 Vitals capture stopped. End Study - Contrast Media Used In Study Contrast Total Opened (mL) Total Used (mL) Total Wasted (mL) Unspecified 150 0 150 End Study - Maximum Contrast Load Max Contrast Load (mL) 400.0 End Study - Radiation Exposure Fluoro Time (minutes) 14.4 End Study - Patient Disposition Complications Transferred To No Telemetry Bed
--- NOTE | 2016-08-26 14:44 | MA ---
cc: TEMITOPE TRIPATHI DATE: 08/25/2016 DATE OF : 1940 PROCEDURE PERFORMED PFO (patent foramen ovale) closure. INDICATION Recurrent CVA. TERRITORY ACCOUNT EXECUTIVE Dr. Tripathi SECONDARY LIVERY CAR DRIVER Dr. Neal Matos PROCEDURE DESCRIPTION Consent signed. The patient was brought into the environmental laboratory technician in a fasting state. The right groin was prepped and draped in sterile fashion. Using 1% lidocaine for local anesthesia and a micropuncture kit a long 10-Uzbek sheath was inserted into the right femoral vein and an 11-Uzbek sheath was inserted also into the right femoral vein. Intracardiac echocardiogram was advanced then to the right atrium to acquire pictures. A 6-Uzbek Amplatz catheter was then advanced over a J-wire to the right atrium. The PFO was closed with a multipurpose catheter. The wire was exchanged to an Amplatz wire which was anchored in the pulmonary vein. The position of the wire was confirmed by ICE. The 6-Uzbek catheter was exchanged for the device/Amplatz sheath. By measurement the size of the PFO was around 30 mm. The PFO also had an atrial septal aneurysm. After flushing and sizing the device we proceeded to introduce a 30 mm Amplatz device which was successfully deployed with ICE and fluoroscopy guidance. The patient tolerated the procedure well without complications. Estimated blood loss was 30 cc. Total contrast used zero. The patient was given IV heparin for IV anticoagulation during the procedure. The right access sites were closed with a Perclose device. CONCLUSIONS Successful PFO closure with ASA in the setting of recurrent ischemic CVA in the last two months. RECOMMENDATIONS The patient will stay overnight. He will have a transthoracic echocardiogram in the morning. Will continue the aspirin and the Plavix. He will continue with telemetry monitoring as well as home medications. Temitope Tripathi MD APPLICATION SOFTWARE DEVELOPER/BT /2:20 PM /2:34 PM
[2016-08-26] MEDS ORDERED: ACETAMINOPHEN 325 MG TAB PO ONE (21:00)
[2016-08-26] MEDS: PRAVASTATIN SOD 40 MG TAB PO SCH (21:31)
[2016-08-26] MEDS: TERAZOSIN HCL 5 MG CAP PO SCH (21:31)
[2016-08-27] VITALS (18 sets, daily range): BP systolic 131–137; BP diastolic 66–79; PULSE 57–82; RESP 16; TEMP 97.7–98.2; O2SAT 95
[2016-08-27] MEDS ORDERED: diphenhydrAMINE HCL 25 MG CAP PO ONE
[2016-08-27] MEDS: ENOXAPARIN SODIUM 40 MG/0.4 ML SYRINGE SQ SCH (03:31)
--- NOTE | 2016-08-27 05:59 | RADRPT ---
EXAM DATE/TIME: 08/27/2016 04:49 [place] COMPARISON: CHEST SINGLE AP, August 24, 2016, 20:11. INDICATIONS : Short of breath. MEDICAL HISTORY : None. SURGICAL HISTORY : None. ENCOUNTER: Subsequent ACUITY: 3 days PAIN SCORE: 5/10 LOCATION: Bilateral chest FINDINGS: Single AP view of the chest. Mild elevation right hemidiaphragm unchanged. The lungs are clear. Cardi omediastinal silhouette within normal limits. No evidence of pleural effusion or pneumothorax. CONCLUSION: No acute cardiopulmonary disease identified. Fermín Phillip MD on August 27, 2016 at 5:56 Board Certified Radiologist. This report was verified electronically.
[2016-08-27] MEDS: INSULIN ASPART SUPPLEMENTAL SCALE SQ SCH ×2 (06:16→12:35)
[2016-08-27] MEDS: SODIUM CHLORIDE 0.9% FLUSH 5 ML FLUSH IV FLUSH SCH (09:00)
[2016-08-27] MEDS: ATENOLOL 50 MG TAB PO SCH (09:00)
[2016-08-27] MEDS ORDERED: ASPIRIN 81 MG CHEW TAB PO SCH (09:00)
[2016-08-27] MEDS: DOCUSATE SODIUM 100 MG CAP PO SCH (09:00)
[2016-08-27] MEDS ORDERED: CLOPIDOGREL 75 MG TAB PO SCH (09:00)
[2016-08-27] MEDS: ASPIRIN 81 MG CHEW TAB CHEW SCH (09:41)
[2016-08-27] MEDS: CLOPIDOGREL 75 MG TAB PO SCH (09:41)
[2016-08-27] MEDS: ENALAPRIL MALEATE 10 MG TAB PO SCH (09:42)
--- NOTE | 2016-08-27 13:07 | HHI.PR ---
Subjective Remarks Follow up for left facial paresthesias, new infarct/CVA, with PFO s/p closure. The patient is seen with family at bedside. His facial paresthesias have resolved. He denies any other medical complaints including no chest pain, palpitations, shortness of breath, unilateral numbness/weakness, or abdominal complaints. He wants to go home. Objective Vitals Vital Signs Date Time Temp Pulse Resp B/P Pulse Ox O2 Delivery O2 Flow Rate FiO2 08/27/16 07:30 64 08/27/16 07:30 97.8 64 16 131/70 95 08/27/16 06:00 61 08/27/16 05:00 61 08/27/16 04:08 58 08/27/16 03:20 97.7 69 16 137/79 95 08/27/16 03:00 57 08/27/16 02:00 58 08/27/16 01:00 58 08/27/16 00:00 61 08/26/16 23:10 98.1 75 18 115/67 94 08/26/16 23:00 72 08/26/16 22:00 64 08/26/16 21:00 62 08/26/16 20:00 97.8 68 16 145/80 94 08/26/16 20:00 68 08/26/16 19:00 69 08/26/16 18:04 74 08/26/16 17:34 62 08/26/16 14:52 97 Room Air I/O 08/26/16 08/26/16 08/26/16 08/27/16 08/27/16 08/27/16 07:00 15:00 23:00 07:00 15:00 23:00 Intake Total 120 ml 240 ml Output Total 150 ml 375 ml Balance -30 ml -135 ml Intake Oral 120 ml 240 ml IV Total 0 ml Output Urine Total 150 ml 375 ml # Bowel Movements 0 0 Result Diagram: 08/25/16 1130 08/26/16 0444 Imaging Last Impressions Chest X-Ray 08/27/16 0600 Signed Impressions: Service Date/Time: August 04:49 - CONCLUSION: No acute cardiopulmonary disease identified. Fermín Phillip MD Brain MRI 08/25/16 0000 Signed Impressions: Service Date/Time: Thursday, August 25, 2016 14:03 - CONCLUSION: 1. There is a subtle area of new cortical infarct which is posterior to the original area of infarct which was seen on previous of 08/06/16. This would suggest a small area of extension of the infarct. Of note, there is no gross hemorrhage obvious on the CT. There is however some signal dropout on the SWI images suggesting some degree of subradiographic parenchymal hemorrhage within this. Leif Garcia MD Head CT 08/24/162004 Signed Impressions: Service Date/Time: Wednesday, August 24, 2016 21:02 - CONCLUSION: Negative for an acute process.. Michael Garcia MD FACR Objective Remarks GENERAL: Well-nourished, well-developed pleasant male patient in NAD. SKIN: Warm and dry. No rash. HEENT: Normocephalic. Atraumatic.Pupils equal and round. Mucous membranes pink and moist. NECK: Supple. Trachea midline. CARDIOVASCULAR: Regular rate and rhythm. S1, S2 noted. No murmur appreciated. RESPIRATORY: No accessory muscle use. Clear to auscultation. Breath sounds equal bilaterally. GASTROINTESTINAL: Abdomen soft, non-tender, nondistended. Normoactive bowel sounds x4. MUSCULOSKELETAL: No obvious deformities. Extremities without clubbing, cyanosis , or edema. NEUROLOGICAL: Awake and alert. Motor grossly within normal limits. 5/5 muscle strength in bilateral upper and lower extremities. Slurred speech but easy to understand, at baseline. Right facial droop at baseline with mild flattening of nasolabial fold. PSYCHIATRIC: Appropriate mood and affect; insight and judgment normal. Procedures 08/26/16 - cardiac catheterization with PFO closure by Dr. Boles Medications and IVs Current Medications Medications (Trade) Dose Ordered Sig/Babak Route Start Time Stop Time Status Last Admin (NS Flush) 2 ml BID IV FLUSH 08/25/16 09:00 08/27/16 09:00 (NS Flush) 2 ml UNSCH PRN IV FLUSH 08/24/16 22:15 (Zofran Inj) 4 mg Q6HR PRN IV PUSH 08/25/16 02:15 08/27/16 00:18 (Aspirin Chew) 81 mg DAILY CHEW 08/25/16 09:00 08/27/16 09:41 (Tenormin) 50 mg BID PO 08/25/16 09:00 08/27/16 09:00 (Plavix) 75 mg DAILY PO 08/25/16 09:00 08/27/16 09:41 (Pravachol) 40 mg HS PO 08/25/16 21:00 08/26/16 21:31 (Hytrin) 5 mg HS PO 08/25/16 21:00 08/26/16 21:31 (Lovenox Inj) 40 mg Q24H SQ 08/26/16 04:15 08/27/16 03:31 (D50w (Vial) Inj) 50 ml UNSCH PRN IV 08/25/16 06:45 (Glucagon Inj) 1 mg UNSCH PRN OTHER 08/25/16 06:45 (Norvasc) 10 mg DAILY PO 08/25/16 10:00 08/27/16 09:41 (Vasotec) 10 mg BID PO 08/25/16 21:00 08/27/16 09:42 (Colace) 100 mg BID PO 08/25/16 17:00 08/25/16 17:00 A/P Problem List: (1) Facial paresthesia ICD Code: R20.9 Status: Resolved (2) History of CVA (cerebrovascular accident) ICD Code: Z86.73 Status: Chronic (3) Hypertension ICD Code: I10 Status: Acute Assessment and Plan 75 y/o male with recent CVA now with left forehead paresthesias as well as nausea with vomiting. Acute on Chronic Ischemic CVA: presented with transient left forehead paresthesias, Head CT images reviewed and unremarkable however Brain MRI showed subtle area of new cortical infarct posterior to original area of infarct suggesting small extension of the infarct. Neurology, Dr. Adame, was contacted from the ED reportedly recommended to continue on aspirin and Plavix. - continue patient's aspirin and plavix - Continuous cardiac telemetry to monitor for arrhythmias - Neuro checks, NIH stroke scale daily - Control BP - Neurology consulted, appreciate recommendations - PT/ST - consult stroke navigator - paresthesias resolved PFO: JUAN on previous admission 08/09/16 showed PFO with right to left atrial shunt. - consulted cardiology - patient is s/p cardiac cath with PFO closure on 08/26 - repeat echocardiogram pending Hypertensive urgency secondary to Accelerated Hypertension: BP 211/89 upon arrival. Likely secondary to recent nausea/vomiting prior to arrival. - Resumed atenolol, terazosin, and enalapril. - Resume previous dose of amlodipine. - May need to increase enalapril to previous dose. - continue to monitor BP and adjust antihypertensives as needed Nausea and vomiting: Resolved prior to admission - Diet as tolerated - Zofran 4 mg IV q6h PRN nausea or vomiting Hypokalemia: Potassium 3.4 on admission. Mag 2.1. Secondary to recent N/V. - Replaced with oral KCl - Repeat BMP with K 3.4, given additional KCl replacement - Replace as needed GERALD: Creatinine 1.32, previously 1.01 on 08/08/16. Likely secondary to vomiting as above. - Received fluid bolus in ED - Repeat BMP with improvement, Cr 1.04. - Avoid nephrotoxins DVT prophylaxis - Lovenox 40 mg subcutaneously daily Discharge Planning Likely discharge after echocardiogram if cleared by cardiology. Discussed with RN at bedside. Problem Qualifiers (1) Hypertension: Qualified Code: I10 - Essential hypertension Ruthie Fuller PA-C Aug 27, 2016 13:07
--- NOTE | 2016-08-27 13:29 | PD.CARD.PN ---
Subjective Subjective Remarks no complaints no overnight events Objective Medications Current Medications Medications (Trade) Dose Ordered Sig/Babak Route Start Time Stop Time Status Last Admin (NS Flush) 2 ml BID IV FLUSH 08/25/16 09:00 08/27/16 09:00 (NS Flush) 2 ml UNSCH PRN IV FLUSH 08/24/16 22:15 (Zofran Inj) 4 mg Q6HR PRN IV PUSH 08/25/16 02:15 08/27/16 00:18 (Aspirin Chew) 81 mg DAILY CHEW 08/25/16 09:00 08/27/16 09:41 (Tenormin) 50 mg BID PO 08/25/16 09:00 08/27/16 09:00 (Plavix) 75 mg DAILY PO 08/25/16 09:00 08/27/16 09:41 (Pravachol) 40 mg HS PO 08/25/16 21:00 08/26/16 21:31 (Hytrin) 5 mg HS PO 08/25/16 21:00 08/26/16 21:31 (Lovenox Inj) 40 mg Q24H SQ 08/26/16 04:15 08/27/16 03:31 (D50w (Vial) Inj) 50 ml UNSCH PRN IV 08/25/16 06:45 (Glucagon Inj) 1 mg UNSCH PRN OTHER 08/25/16 06:45 (Norvasc) 10 mg DAILY PO 08/25/16 10:00 08/27/16 09:41 (Vasotec) 10 mg BID PO 08/25/16 21:00 08/27/16 09:42 (Colace) 100 mg BID PO 08/25/16 17:00 08/25/16 17:00 Vital Signs / I&O Vital Signs Date Time Temp Pulse Resp B/P Pulse Ox O2 Delivery O2 Flow Rate FiO2 08/27/16 11:30 70 08/27/16 11:30 98.2 71 16 131/66 95 08/27/16 07:30 64 08/27/16 07:30 97.8 64 16 131/70 95 08/27/16 06:00 61 08/27/16 05:00 61 08/27/16 04:08 58 08/27/16 03:20 97.7 69 16 137/79 95 08/27/16 03:00 57 08/27/16 02:00 58 08/27/16 01:00 58 08/27/16 00:00 61 08/26/16 23:10 98.1 75 18 115/67 94 08/26/16 23:00 72 08/26/16 22:00 64 08/26/16 21:00 62 08/26/16 20:00 97.8 68 16 145/80 94 08/26/16 20:00 68 08/26/16 19:00 69 08/26/16 18:04 74 08/26/16 17:34 62 08/26/16 14:52 97 Room Air I/O 08/26/16 08/26/16 08/26/16 08/27/16 08/27/16 08/27/16 07:00 15:00 23:00 07:00 15:00 23:00 Intake Total 120 ml 240 ml Output Total 150 ml 375 ml Balance -30 ml -135 ml Intake Oral 120 ml 240 ml IV Total 0 ml Output Urine Total 150 ml 375 ml # Bowel Movements 0 0 Physical Exam GENERAL: Well-nourished, well-developed patient. SKIN: Warm and dry. HEAD: Normocephalic. EYES: No scleral icterus. No injection or drainage. NECK: Supple, trachea midline. No JVD or lymphadenopathy. CARDIOVASCULAR: Regular rate and rhythm without murmurs, gallops, or rubs. RESPIRATORY: Breath sounds equal bilaterally. No accessory muscle use. GASTROINTESTINAL: Abdomen soft, non-tender, nondistended. EXTREMITIES: No cyanosis, or edema. NEUROLOGICAL: Awake, alert, and oriented x 3. Non-focal. Imaging Last Impressions Chest X-Ray 08/27/16 0600 Signed Impressions: Service Date/Time: August 04:49 - CONCLUSION: No acute cardiopulmonary disease identified. Fermín Phillip MD Brain MRI 08/25/16 0000 Signed Impressions: Service Date/Time: Thursday, August 25, 2016 14:03 - CONCLUSION: 1. There is a subtle area of new cortical infarct which is posterior to the original area of infarct which was seen on previous of 08/06/16. This would suggest a small area of extension of the infarct. Of note, there is no gross hemorrhage obvious on the CT. There is however some signal dropout on the SWI images suggesting some degree of subradiographic parenchymal hemorrhage within this. Leif Garcia MD Head CT 08/24/162004 Signed Impressions: Service Date/Time: Wednesday, August 24, 2016 21:02 - CONCLUSION: Negative for an acute process.. Michael Garcia MD FACR Assessment and Plan Problem List: (1) PFO (patent foramen ovale) Assessment and Plan: s/p PFO Closure. Doing well no complaints. Chest Xray unremarkable. ECHO pending. Stable for d/c Home from CV standpoint. Follow up with cardiology upon discharge. Recommendations 1. Cont Aspirin and Plavix 2. Standard bacterial endocarditis prophylaxis is recommended for 6 to 12 months. 3. Repeat echocardiogram in 6 month. 4. Stable for d/c Home from CV standpoint. 5. Follow up with cardiology upon discharge. (2) History of CVA (cerebrovascular accident) (3) Hypertension (4) Acute CVA (cerebrovascular accident) (5) Diabetes mellitus (6) Dyslipidemia Problem Qualifiers (1) Hypertension: Qualified Code: I10 - Essential hypertension Jose Antonio Robles MD Aug 27, 2016 13:29
--- NOTE | 2016-08-27 13:49 | HHI.FF ---
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 My clinical findings support the need for the requested home health care services because: Deconditioned w/ increased weakness Limited ability to care for self I certify that my clinical findings support that this patient is homebound because: Unsafe to leave home unassisted Unable to use public transportation Ruthie Fuller PA-C Aug 27, 2016 1:49 pm
[2016-08-27] MEDS ORDERED: ENAL10TA PO (13:51)
[2016-08-27] MEDS ORDERED: AMLO10 PO (13:51)
--- NOTE | 2016-08-27 13:53 | HHI.DCPOC ---
Discharge Care Plan Diagnosis: (1) Acute CVA (cerebrovascular accident) (2) Dysphasia due to recent stroke (3) Facial paresthesia (4) Hypertension (5) Diabetes mellitus (6) S/P patent foramen ovale closure Goals to Promote Your Health * To prevent worsening of your condition and complications * To maintain your health at the optimal level Directions to Meet Your Goals Take your medications as prescribed Follow your dietary instruction Follow activity as directed Keep your appointments as scheduled Take your immunizations and boosters as scheduled If your symptoms worsen call your PCP, if no PCP go to Urgent Care Center or Emergency Room Smoking is Dangerous to Your Health. Avoid second hand smoke Call the 24-hour hour crisis hotline for domestic abuse at Ruthie Fuller PA-C Aug 27, 2016 1:53 pm
--- NOTE | 2016-08-27 14:33 | HHI.DS ---
cc: Jose Antonio Robles MD; Kike Weeks PhD Discharge Summary Admission Date Aug 25, 2016 at 4:04 pm Discharge Date: Aug 27, 2016 Admitting Diagnosis Left facial numbness, history of recent stroke (1) Acute CVA (cerebrovascular accident) ICD Code: I63.9 Diagnosis: Principal (2) Facial paresthesia ICD Code: R20.9 Diagnosis: Principal (3) History of CVA (cerebrovascular accident) ICD Code: Z86.73 Diagnosis: Secondary (4) Hypertension ICD Code: I10 Diagnosis: Secondary (5) Dysphasia due to recent stroke ICD Code: I69.321 Diagnosis: Secondary (6) Diabetes mellitus ICD Code: E11.9 Diagnosis: Secondary (7) S/P patent foramen ovale closure ICD Code: Z98.890 Diagnosis: Principal Procedures 08/26/16 - cardiac catheterization with PFO closure by Dr. Boles Brief History - From Admission The patient reports his symptoms began at 10 p.m. on Wednesday. He felt "totally nauseated" and vomited; by 3 a.m. he was vomiting liquid; he reports he continued to experience nausea throughout the next day. He cancelled his 1:[address] [facility] because of nausea. Then he continued to have dry heaves. He took one tablet of Dramamine and continued to vomit. He took his Plavix and baby aspirin and was able to keep them down but nausea persisted until he got a shot of Zofran here at [facility]. No one else is sick in family with nausea/vomiting; he reports eating out at a restaurant with family the day symptoms started and ate a rather large meal. Denies black or red emesis; color was yellow. Denies abdominal cramping, black or red stool, diarrhea. While he was here in the ED, he developed paresthesias for about an hour located midforehead and outward towards patient's left. These symptoms spontaneously resolved. He was a patient of Dr. Stein, but he no longer is covered under patient's new insurance to see Dr. Stein. He has an implanted cardiac event recorder. CBC/BMP: 08/25/16 1130 08/26/16 0444 Significant Findings Laboratory Tests Test 08/24/16 08/24/16 08/25/16 08/26/16 20:30 23:30 11:30 04:44 White Blood Count 11.1 TH/MM3 (4.0-11.0) Mean Corpuscular Hemoglobin 26.8 PG (27.0-34.0) Neutrophils (%) (Auto) 81.8 % (16.0-70.0) Neutrophils # (Auto) 9.1 TH/MM3 (1.8-7.7) Potassium Level 3.4 MEQ/L 3.4 MEQ/L 3.4 MEQ/L (3.5-5.1) (3.5-5.1) (3.5-5.1) Creatinine 1.32 MG/DL (0.60-1.30) Estimat Glomerular Filtration 53 ML/MIN (>89) 54 ML/MIN (>89) 70 ML/MIN (>89) Rate Random Glucose 215 MG/DL 208 MG/DL 167 MG/DL (74-106) (74-106) (74-106) Calcium Level 10.3 MG/DL (8.5-10.1) Total Bilirubin 1.1 MG/DL (0.2-1.0) Urine Glucose (UA) 1000 mg/dL (NEG) Urine Ketones TRACE mg/dL (NEG) Urine Mucus FEW /lpf (OCC) Imaging Last Impressions Chest X-Ray 08/27/16 0600 Signed Impressions: Service Date/Time: August 04:49 - CONCLUSION: No acute cardiopulmonary disease identified. Fermín Phillip MD Brain MRI 08/25/16 0000 Signed Impressions: Service Date/Time: Thursday, August 25, 2016 14:03 - CONCLUSION: 1. There is a subtle area of new cortical infarct which is posterior to the original area of infarct which was seen on previous of 08/06/16. This would suggest a small area of extension of the infarct. Of note, there is no gross hemorrhage obvious on the CT. There is however some signal dropout on the SWI images suggesting some degree of subradiographic parenchymal hemorrhage within this. Leif Garcia MD Head CT 08/24/16 2005 Signed Impressions: Service Date/Time: Wednesday, August 24, 2016 21:02 - CONCLUSION: Negative for an acute process.. Michael Garcia MD FACR PE at Discharge GENERAL: Well-nourished, well-developed pleasant male patient in [facility]. SKIN: Warm and dry. No rash. HEENT: Normocephalic. Atraumatic.Pupils equal and round. Mucous membranes pink and moist. NECK: Supple. Trachea midline. CARDIOVASCULAR: Regular rate and rhythm. S1, S2 noted. No murmur appreciated. RESPIRATORY: No accessory muscle use. Clear to auscultation. Breath sounds equal bilaterally. GASTROINTESTINAL: Abdomen soft, non-tender, nondistended. Normoactive bowel sounds x4. MUSCULOSKELETAL: No obvious deformities. Extremities without clubbing, cyanosis , or edema. NEUROLOGICAL: Awake and alert. Motor grossly within normal limits. 5/5 muscle strength in bilateral upper and lower extremities. Slurred speech but easy to understand, at baseline. Right facial droop at baseline with mild flattening of nasolabial fold. PSYCHIATRIC: Appropriate mood and affect; insight and judgment normal. Hospital Course 75 y/o male with recent CVA now with left forehead paresthesias as well as nausea with vomiting. Acute on Chronic Ischemic CVA: patient presented with transient left forehead paresthesias that resolved shortly after admission. Initial Head CT images reviewed and unremarkable however Brain MRI showed subtle area of new cortical infarct posterior to original area of infarct suggesting small extension of the infarct. order caller neurologist Dr. Adame, was contacted from the ED, no TPA given, reportedly recommended to continue on aspirin and Plavix. Patient was evaluated with neuro checks, NIHSS, telemetry. Neurology consulted, seen by Dr. Mcmahon, recommended to continue aspirin/plavix and consult cardiology for PFO closure diagnosed with JUAN on previous admission. 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 He was observed overnight, repeat echocardiogram done which was seen in the room by Dr. Boles, and cleared for discharge by Dr. Boles. Recommended f/up with Dr. Boles in 1 week, repeat echo in 6 months. Patient already has an appointment with neurologist Dr. Weeks tomorrow at 11:30am. Case management was consulted to continue [facility] nursing and speech therapy after discharge. The patient's admission was also complicated by hypertensive urgency secondary to Accelerated Hypertension with BP 211/89 upon arrival. Likely secondary to recent nausea/vomiting prior to arrival. Resumed atenolol, terazosin, and enalapril. Resume previous dose of amlodipine and increased enalapril dosing. BP much better controlled. The patient also presented with GERALD, Creatinine 1.32, previously 1.01 on . Likely secondary to vomiting as above. Received fluid bolus in ED. Repeat BMP with improvement, Cr 1.04. Pt Condition on Discharge: Stable Discharge Disposition: Disch w/ Home Health Serv Discharge Time: > 30 minutes Discharge Instructions DIET: Follow Instructions for: Heart Healthy Diet, Diabetic Diet Activities you can perform: Regular-No Restrictions Follow up Referrals: Cardiology - 1 Week with Jose Antonio Robles MD Neurology - 08/28/16 with Kike Weeks PhD, MD PCP Follow-up - 2-3 Days with [place] MD New Orders: 2D ECHO - 6 Months New Medications: Amlodipine (Norvasc) 10 Mg Tab 10 MG PO DAILY Blood Pressure Management #30 TAB Enalapril (Enalapril) 10 Mg Tab 10 MG PO BID Blood Pressure Management #60 TAB Continued Medications: Aspirin (Aspirin) 81 Mg Chew 81 MG CHEW DAILY Ref 0 TAB Atenolol (Atenolol) 50 Mg Tab 50 MG PO BID Blood Pressure Management #60 Ref 0 TAB Clopidogrel (Plavix) 75 Mg Tab 75 MG PO DAILY prevent stroke Days 30 TAB Dulaglutide Inj (Trulicity Inj) 0.75 Mg/0.5 Ml Pen 0.75 MG SQ WEDNESDAY Blood Sugar Management #4 Ref 0 PEN Fenofibrate (Fenofibrate) 160 Mg Tab 160 MG PO DAILY #30 Ref 0 TAB Glipizide (Glipizide) 10 Mg Tab 10 MG PO BIDAC Take 30 minutes before a meal Blood Sugar Management #60 Ref 0 TAB Pravastatin (Pravachol) 40 Mg Tab 40 MG PO HS Cholesterol Management Days 30 TAB Terazosin (Terazosin) 5 Mg Cap 5 MG PO HS #30 Ref 0 CAP Discontinued Medications: Enalapril (Enalapril) 5 Mg Tab 5 MG PO BID blood pressure #60 Ref 0 TAB Ruthie Fuller PA-C Aug 27, 2016 2:33 pm
--- NOTE | 2016-08-27 17:47 | ECHRPT ---
Indication: CVA/TIA CONCLUSIONS The left ventricular systolic function is normal with an estimated ejection fraction in the range of 60-65%. Wall thickness is measured at the upper limits of normal. Normal left ventricular size. Mild aortic valve regurgitation. Mild mitral valve regurgitation. An interatrial septal occluder closure device is present in a well seated position. BP: 131 / 70 HR: 64 Rhythm: Sinus MEASUREMENTS (Male / Female) Normal Values Technical Quality:Fair 2D ECHO LV Diastolic Diameter PLAX 5.0 cm 4.2 - 5.9 / 3.9 - 5.3 cm LV Systolic Diameter PLAX 3.9 cm IVS Diastolic Thickness 1.1 cm 0.6 - 1.0 / 0.6 - 0.9 cm LVPW Diastolic Thickness 1.1 cm 0.6 - 1.0 / 0.6 - 0.9 cm LV Relative Wall Thickness 0.4 LVOT Diameter 2.2 cm LA Systolic Diameter LX 3.6 cm 3.0 - 4.0 / 2.7 - 3.8 cm M-MODE Aortic Root Diameter MM 3.5 cm AV Cusp Separation MM 2.3 cm DOPPLER AV Peak Velocity 121.0 cm/s AV Peak Gradient 5.9 mmHg AI Peak Velocity 286.3 cm/s AI Peak Gradient 32.8 mmHg AI Pressure Half Time 1074.3 ms LVOT Peak Velocity 108.0 cm/s LVOT Peak Gradient 4.7 mmHg AV Area Cont Eq pk 3.4 cm MR Peak Velocity 232.0 cm/s MR Peak Gradient 21.5 mmHg Mitral E Point Velocity 100.0 cm/s Mitral A Point Velocity 79.5 cm/s Mitral E to A Ratio 1.3 LV E' Lateral Velocity 10.1 cm/s Mitral E to LV E' Lateral Ratio 9.9 LV E' Septal Velocity 10.3 cm/s Mitral E to LV E' Septal Ratio 9.7 PV Peak Velocity 93.7 cm/s PV Peak Gradient 3.5 mmHg FINDINGS LEFT VENTRICLE The left ventricular systolic function is normal with an estimated ejection fraction in the range of 60-65%. Wall thickness is measured at the upper limits of normal. Normal left ventricular size. RIGHT VENTRICLE Normal right ventricular size and systolic function. LEFT ATRIUM The left atrial size is normal. RIGHT ATRIUM The right atrial size is normal. ATRIAL SEPTUM An interatrial septal occluder closure device is present in a well seated position. AORTA The aortic root and proximal ascending aorta are normal in size on limited imaging. MITRAL VALVE Mild mitral valve regurgitation. AORTIC VALVE Mild aortic valve regurgitation. TRICUSPID VALVE Structurally normal tricuspid valve. No tricuspid valve stenosis or regurgitation. PULMONARY VALVE The pulmonary valve is not well visualized. VESSELS The inferior vena cava is normal in size. PERICARDIUM No pericardial effusion. Neal Matos MD, FACC (Electronically Signed) Final Date:27 August 2016 17:46
== END 2016-08-27 15:39 | disposition home health service (06) | DRG 982 ==
LOC: NEPC 19:38 → NEDA 22:06 → NEPGCP 23:20 → OBSVTOIN 08-25 16:04 → HCIS 08-26 12:20 → HCIN 08-26 17:15
PROVIDERS: ADMIT Hospitalist; ATTEND Hospitalist
PROC: B246YZZ Ultrasonography of Right and Left Heart using Other Contrast (ICD-10-PCS; principal; 2016-08-25)
PROC: 02Q Heart and Great Vessels, Repair (ICD-10-PCS; 2016-08-25)
DX: I63.9 Cerebral infarction, unspecified (principal); Q21.1 Atrial septal defect; N17.9 Acute kidney failure, unspecified; E11.22 Type 2 diabetes mellitus with diabetic chronic kidney disease; Z99.81 Dependence on supplemental oxygen; I12.9 Hypertensive chronic kidney disease with stage 1 through stage 4 chronic kidney disease, or unspecified chronic kidney disease; R11.2 Nausea with vomiting, unspecified; G47.33 Obstructive sleep apnea (adult) (pediatric); N40.0 Benign prostatic hyperplasia without lower urinary tract symptoms; E78.5 Hyperlipidemia, unspecified; G43.909 Migraine, unspecified, not intractable, without status migrainosus; E66.9 Obesity, unspecified; F41.9 Anxiety disorder, unspecified; I45.10 Unspecified right bundle-branch block; R20.0 Anesthesia of skin; I25.10 Atherosclerotic heart disease of native coronary artery without angina pectoris; M54.9 Dorsalgia, unspecified; Z82.49 Family history of ischemic heart disease and other diseases of the circulatory system; D72.829 Elevated white blood cell count, unspecified; E87.6 Hypokalemia; R47.1 Dysarthria and anarthria; M54.30 Sciatica, unspecified side; N18.2 Chronic kidney disease, stage 2 (mild); R29.810 Facial weakness; I16.0 Hypertensive urgency; I69.321 Dysphasia following cerebral infarction; I08.9 Rheumatic multiple valve disease, unspecified
CPT/HCPCS: 70450; 70551; 71010; 80048; 80053; 81001; 82550; 82948; 83735; 84484; 85025; 85610; 85730; 93005; 93306; 96361; 96374; G0378; G8987-GP; G8988-GP; G8999-GN; G9158-GN; G9186-GN; J0690; J1644; J1650; J1815; J2250; J2405; J2720; J3010; J7030; J7040

== ENCOUNTER 2018-03-25 08:49 | Observation (INO) ==
--- NOTE | 2018-03-25 09:27 | CT ---
EXAM DATE: 03/25/2018 9:22 AM EST AGE/SEX: 77 years / Male INDICATIONS: Stroke alert, Left sided numbness and weakness. Slurred speech. CLINICAL DATA: This is the patient's initial encounter. Patient reports that signs and symptoms have been present for 1 day and indicates a pain score of Nonresponsive. MEDICAL/SURGICAL HISTORY: Non-responsive. Non-responsive. RADIATION DOSE: 38.95 CTDI (mGy) COMPARISON: [facility] [place], CT BRAIN W/O CONTRAST, 08/24/2016. . TECHNIQUE: CT of the head without contrast. Using automated exposure control and adjustment of the mA and/or kV according to patient size, radiation dose was kept as low as reasonably achievable to ob tain optimal diagnostic quality images. DICOM format image data is available electronically for revi ew and comparison. FINDINGS: Cerebrum: The ventricles are normal for age. No evidence of midline shift, mass lesion, hemorrhage or acute infarction. No extraaxial fluid collections are seen. Posterior Fossa: The cerebellum and brainstem are intact. The 4th ventricle is midline. The cerebe llopontine angle is unremarkable. Extracranial: The visualized portion of the orbits is intact. Skull: The calvaria is intact. No evidence of skull fracture. CONCLUSION: No acute intracranial findings. Report was called by [Jenny to Dr. De Paz at 0924 hours]. Electronically signed by: Jevon Alvarado MD Board Certified Radiologist 03/25/2018 9:26 AM EST
[2018-03-25 09:31] LABS: Baso % (Auto) 0.4 % (0.0-2.0); Eos # (Auto) 0.1 th/mm3 (0.0-0.4); Hematocrit 42.2 % (39.0-51.0); Hemoglobin 14.4 gm/dL (13.0-17.0); Lymph # (Auto) 1.8 th/mm3 (1.0-4.8); Lymph % (Auto) 27.1 % (9.0-44.0); Mean Corpuscular HGB Conc 34.2 % (32.0-36.0); Mean Corpuscular Hemoglobin 28.7 pg (27.0-34.0); Mean Corpuscular Volume 83.8 fL (80.0-100.0); Mean Platelet Volume 7.8 fL (7.0-11.0); Mono # (Auto) 0.5 th/mm3 (0.0-0.9); Neut # (Auto) 4.3 th/mm3 (1.8-7.7); Neut % (Auto) 63.5 % (16.0-70.0); Platelet Count 277 th/mm3 (150-450); Red Blood Count 5.03 mil/mm3 (4.50-5.90); Red Cell Distribution Width 14.6 % (11.6-17.2); White Blood Count 6.8 th/mm3 (4.0-11.0)
--- NOTE | 2018-03-25 09:32 | ED ---
HPI General Chief Complaint: Stroke Alert Stated Complaint: neuro Time Seen by Provider: 03/25/18 09:11 Source: patient and family Mode of arrival: ambulatory Limitations: no limitations History of Present Illness HPI Narrative: 77-year-old male complains of numbness sensation in the left side of the head, sharp pain on left-sided neck, slurring speech, left leg weakness. Patient states that the symptoms started about half an hour prior to arrival. Patient has history of CVA x2 in 2017. Patient started post surgery for PFO subsequently. 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 Patient also has history hypertension, diabetes, hyper lipidemia. Onset (ago): minute(s) Timing confirmed by: spouse Location: Reports speech and left leg History of same: Yes Severity: mild Quality: Reports weak and numb Relieving factors: none Exacerbating factors: none Context: Reports sudden onset Associated symptoms: Reports denies other symptoms Treatments Prior to Arrival: Reports none Related Data Home Medications Medication Instructions Recorded Confirmed amlodipine 10 mg PO DAILY 12/23/17 03/25/18 aspirin 81 mg PO DAILY 12/23/17 03/25/18 atenolol 1 tab PO DAILY 12/23/17 03/25/18 exenatide microspheres [Bydureon] 2 mg SUBCUT Q7D 12/23/17 03/25/18 fenofibrate 160 mg PO EVERY OTHER DAY 12/23/17 03/25/18 terazosin 5 mg PO DAILY 12/23/17 03/25/18 apixaban [Eliquis] 5 mg PO DAILY 03/25/18 03/25/18 diltiazem HCl 240 mg PO DAILY 03/25/18 03/25/18 hydrochlorothiazide 25 mg PO DAILY 03/25/18 03/25/18 losartan 100 mg PO HS 03/25/18 03/25/18 pravastatin 40 mg PO HS 03/25/18 03/25/18 Previous Rx's Medication Instructions Recorded diazepam 5 mg PO TID PRN #12 tab 12/23/17 Allergies Allergy/AdvReac Type Severity Reaction Status Date / Time codeine Allergy Severe Rash Verified 03/25/18 09:28 verapamil Allergy Severe causes Verified 03/25/18 09:28 ileus metformin AdvReac Severe Dehydration Verified 03/25/18 09:28 morphine AdvReac Severe Constipatio Verified 03/25/18 09:28 n Review of Systems ROS: all other systems reviewed are negative PMFSH History History Provided By: Patient and Family Member Medical History Medical History CVA (cerebral vascular accident) (Acute) Diabetes (Acute) Hypertension (Acute) MVP (mitral valve prolapse) (Acute) Sciatica (Acute) Surgical History Surgical History History of appendectomy (Acute) Hx of cataract surgery (Acute) Family History Family History Other CAD (coronary artery disease) Social History Social History Substance History: No History of Abuse Second Hand Smoke Exposure: No Smoking Status: Never smoker How Often Do You Have a Drink Containing Alcohol: Monthly or less Recent Travel in [facility] within the Last 8 Weeks: No Recent Out of Country Travel within the Last 8 Weeks: No Exam Narrative Exam Narrative: GENERAL: Well-nourished, well-developed patient. SKIN: Focused skin assessment warm/dry. HEAD: Normocephalic. EYES: No scleral icterus. No injection or drainage. NECK: Supple, trachea midline. No JVD or lymphadenopathy. CARDIOVASCULAR: Regular rate and rhythm without murmurs, gallops, or rubs. RESPIRATORY: Breath sounds equal bilaterally. No accessory muscle use. GASTROINTESTINAL: Abdomen soft, non-tender, nondistended. MUSCULOSKELETAL: No cyanosis, or edema. BACK: Nontender without obvious deformity. No CVA tenderness. Neurologic exam: No obvious facial drooping. Mild decrease in light touch sensation a small area around left temporal area of the scalp. Patient's speech with mild impaired. Minimal weakness on the left leg. Patient is able to lift the left leg off the bed and move the left leg on command. Course Initial Documented Vital Signs Pulse Rate 65 03/25/18 09:03 Respiratory Rate 18 03/25/18 09:03 Blood Pressure 154/64 H 03/25/18 09:03 Pulse Oximetry 96 03/25/18 09:03 Last Documented Vital Signs Pulse Rate 62 03/25/18 14:15 Respiratory Rate 15 03/25/18 14:15 Blood Pressure 140/60 03/25/18 14:15 Pulse Oximetry 96 03/25/18 10:00 NIH Stroke Scale NIH Stroke Scale Level of Consciousness: 0-Alert Orientation Questions: 0-Answers both correct Responds to Commands: 0-Both tasks correct Gaze Eye Movement: 0-Horizontal movement WNL Visual Chris: 0-No visual field defect Facial Movement: 0-Normal Motor Functions Arm LEFT: 0-No drift Motor Functions Arm RIGHT: 0-No drift Motor Functions Leg LEFT: 0-No drift Motor Functions Leg RIGHT: 0-No drift Limb Ataxia: 0-No ataxia Sensory Loss: 0-No sensory loss Best Language: 0-Normal Articulation: 1-Mild dysarthia Extinction or Inattention Sensory: 0-Absent Total: 1 Medical Decision Making MDM Narrative Medical decision making narrative: 77-year-old male with mild sensation a small area on the left worship area of the scalp, mild slurring of his speech, mild weakness in the left leg. Symptoms started have an hour prior to arrival this morning. History of CVA x2 in the past. History of paroxysmal atrial fibrillation on Eliquis 5 mg twice a day. Medical Screen Exam Complete: Yes Emergency Medical Condition: Yes Differential Diagnosis Differential Diagnosis: Differential diagnosis including TIA, CVA. Lab Data Result diagrams: 03/25/18 09:07 03/25/18 09:07 Lab Results 03/25/18 03/25/18 03/25/18 Range/Units 09:07 09:07 09:07 WBC 6.8 (4.0-11.0) th/mm3 RBC 5.03 (4.50-5.90) mil/mm3 Hgb 14.4 (13.0-17.0) gm/dL POC Hgb (Calc) 14.3 (13.0-17.0) g/dL Hct 42.2 (39.0-51.0) % POC Hct 42.0 (39-51.0) % MCV 83.8 (80.0-100.0) fL MCH 28.7 (27.0-34.0) pg MCHC 34.2 (32.0-36.0) % RDW 14.6 (11.6-17.2) % Plt Count 277 (150-450) th/mm3 MPV 7.8 (7.0-11.0) fL Neut % (Auto) 63.5 (16.0-70.0) % Lymph % (Auto) 27.1 (9.0-44.0) % [place] % (Auto) 7.0 (0.0-8.0) % Eos % (Auto) 2.0 (0.0-4.0) % Baso % (Auto) 0.4 (0.0-2.0) % Neut # (Auto) 4.3 (1.8-7.7) th/mm3 Lymph # (Auto) 1.8 (1.0-4.8) th/mm3 [place] # (Auto) 0.5 (0.0-0.9) th/mm3 Eos # (Auto) 0.1 (0.0-0.4) th/mm3 Baso # (Auto) 0.0 (0.0-0.2) th/mm3 WBC Differential . Differential Comment Auto diff final PT 11.0 (9.8-11.6) sec INR 1.1 Ratio APTT 27.5 (23.4-31.7) sec Fibrinogen 291 (227-377) mg/dL POC Sodium 139 (137-144) mmol/L Sodium (136-145) meq/L POC Potassium 3.5 L (3.6-5.0) mmol/L Potassium (3.5-5.1) meq/L POC Chloride 100 L (102-111) mmol/L Chloride (98-107) meq/L Carbon Dioxide (21.0-32.0) meq/L Anion Gap (5-15) meq/L POC BUN 22 H (5-21) mg/dL BUN (7-18) mg/dL Creatinine (0.60-1.30) mg/dL POC Creatinine 1.7 H (0.6-1.3) mg/dL Estimated GFR (>89) mL/min POC Glucose 354 H (68-110) mg/dL Random Glucose (74-106) mg/dL Calcium (8.5-10.1) mg/dL Total Bilirubin (0.2-1.0) mg/dL AST (15-37) U/L ALT (12-78) U/L Alkaline Phosphatase (45-117) U/L Total Creatine Kinase 127 (39-308) U/L Troponin I 0.02 (0.02-0.05) ng/mL Total Protein (6.4-8.2) g/dL Albumin (3.4-5.0) g/dL Urine Color (Yellw/Straw) Urine Clarity (Clear) Urine pH (5.0-8.5) Ur Specific [place] (1.002-1.035) Urine Protein (Neg-Trace) mg/dL Urine Glucose (UA) (Negative) mg/dL Urine Ketones (Negative) mg/dL Urine Occult Blood (Negative) Urine Nitrate (Negative) Urine Bilirubin (Negative) Urine Urobilinogen (Less than 2) mg/dL Ur Leukocyte Esterase (Negative) Urine RBC (0-3) /hpf Urine WBC (0-5) /hpf Ur Squamous Epith Cells (0-5) /hpf Hyaline Casts (0-3) /lpf Micro UA Comment Ur Microscopic Review Urine Culture Comments Blood Type Antibody Screen 03/25/18 03/25/18 03/25/18 Range/Units 09:07 09:07 09:09 WBC (4.0-11.0) th/mm3 RBC (4.50-5.90) mil/mm3 Hgb (13.0-17.0) gm/dL POC Hgb (Calc) (13.0-17.0) g/dL Hct (39.0-51.0) % POC Hct (39-51.0) % MCV (80.0-100.0) fL MCH (27.0-34.0) pg MCHC (32.0-36.0) % RDW (11.6-17.2) % Plt Count (150-450) th/mm3 MPV (7.0-11.0) fL Neut % (Auto) (16.0-70.0) % Lymph % (Auto) (9.0-44.0) % [place] % (Auto) (0.0-8.0) % Eos % (Auto) (0.0-4.0) % Baso % (Auto) (0.0-2.0) % Neut # (Auto) (1.8-7.7) th/mm3 Lymph # (Auto) (1.0-4.8) th/mm3 [place] # (Auto) (0.0-0.9) th/mm3 Eos # (Auto) (0.0-0.4) th/mm3 Baso # (Auto) (0.0-0.2) th/mm3 WBC Differential Differential Comment PT (9.8-11.6) sec INR Ratio APTT (23.4-31.7) sec Fibrinogen (227-377) mg/dL POC Sodium (137-144) mmol/L Sodium 138 (136-145) meq/L POC Potassium (3.6-5.0) mmol/L Potassium 3.6 (3.5-5.1) meq/L POC Chloride (102-111) mmol/L Chloride 103 (98-107) meq/L Carbon Dioxide 25.5 (21.0-32.0) meq/L Anion Gap 10 (5-15) meq/L POC BUN (5-21) mg/dL BUN 23 H (7-18) mg/dL Creatinine 1.92 H (0.60-1.30) mg/dL POC Creatinine (0.6-1.3) mg/dL Estimated GFR 34 L (>89) mL/min POC Glucose 330 H (68-110) mg/dL Random Glucose 347 H (74-106) mg/dL Calcium 9.7 (8.5-10.1) mg/dL Total Bilirubin 0.8 (0.2-1.0) mg/dL AST 43 H (15-37) U/L ALT 44 (12-78) U/L Alkaline Phosphatase 69 (45-117) U/L Total Creatine Kinase (39-308) U/L Troponin I (0.02-0.05) ng/mL Total Protein 7.2 (6.4-8.2) g/dL Albumin 3.9 (3.4-5.0) g/dL Urine Color (Yellw/Straw) Urine Clarity (Clear) Urine pH (5.0-8.5) Ur Specific [place] (1.002-1.035) Urine Protein (Neg-Trace) mg/dL Urine Glucose (UA) (Negative) mg/dL Urine Ketones (Negative) mg/dL Urine Occult Blood (Negative) Urine Nitrate (Negative) Urine Bilirubin (Negative) Urine Urobilinogen (Less than 2) mg/dL Ur Leukocyte Esterase (Negative) Urine RBC (0-3) /hpf Urine WBC (0-5) /hpf Ur Squamous Epith Cells (0-5) /hpf Hyaline Casts (0-3) /lpf Micro UA Comment Ur Microscopic Review Urine Culture Comments Blood Type O Positive Antibody Screen Negative 03/25/18 Range/Units 10:05 WBC (4.0-11.0) th/mm3 RBC (4.50-5.90) mil/mm3 Hgb (13.0-17.0) gm/dL POC Hgb (Calc) (13.0-17.0) g/dL Hct (39.0-51.0) % POC Hct (39-51.0) % MCV (80.0-100.0) fL MCH (27.0-34.0) pg MCHC (32.0-36.0) % RDW (11.6-17.2) % Plt Count (150-450) th/mm3 MPV (7.0-11.0) fL Neut % (Auto) (16.0-70.0) % Lymph % (Auto) (9.0-44.0) % [place] % (Auto) (0.0-8.0) % Eos % (Auto) (0.0-4.0) % Baso % (Auto) (0.0-2.0) % Neut # (Auto) (1.8-7.7) th/mm3 Lymph # (Auto) (1.0-4.8) th/mm3 [place] # (Auto) (0.0-0.9) th/mm3 Eos # (Auto) (0.0-0.4) th/mm3 Baso # (Auto) (0.0-0.2) th/mm3 WBC Differential Differential Comment PT (9.8-11.6) sec INR Ratio APTT (23.4-31.7) sec Fibrinogen (227-377) mg/dL POC Sodium (137-144) mmol/L Sodium (136-145) meq/L POC Potassium (3.6-5.0) mmol/L Potassium (3.5-5.1) meq/L POC Chloride (102-111) mmol/L Chloride (98-107) meq/L Carbon Dioxide (21.0-32.0) meq/L Anion Gap (5-15) meq/L POC BUN (5-21) mg/dL BUN (7-18) mg/dL Creatinine (0.60-1.30) mg/dL POC Creatinine (0.6-1.3) mg/dL Estimated GFR (>89) mL/min POC Glucose (68-110) mg/dL Random Glucose (74-106) mg/dL Calcium (8.5-10.1) mg/dL Total Bilirubin (0.2-1.0) mg/dL AST (15-37) U/L ALT (12-78) U/L Alkaline Phosphatase (45-117) U/L Total Creatine Kinase (39-308) U/L Troponin I (0.02-0.05) ng/mL Total Protein (6.4-8.2) g/dL Albumin (3.4-5.0) g/dL Urine Color Yellow (Yellw/Straw) Urine Clarity Clear (Clear) Urine pH 6.0 (5.0-8.5) Ur Specific [place] 1.031 (1.002-1.035) Urine Protein Negative (Neg-Trace) mg/dL Urine Glucose (UA) 500 or greater (Negative) mg/dL Urine Ketones Negative (Negative) mg/dL Urine Occult Blood Negative (Negative) Urine Nitrate Negative (Negative) Urine Bilirubin Negative (Negative) Urine Urobilinogen Less than 2 (Less than 2) mg/dL Ur Leukocyte Esterase Negative (Negative) Urine RBC Less than 1 (0-3) /hpf Urine WBC 1 (0-5) /hpf Ur Squamous Epith Cells <1 (0-5) /hpf Hyaline Casts 3 (0-3) /lpf Micro UA Comment Cath-culture not ind Ur Microscopic Review Not Reportable Urine Culture Comments Cath-cult not ind Blood Type Antibody Screen Imaging Data Attestation: I personally reviewed and interpreted this imaging study as follows : Radiologist's impression: Head CT 03/25/18 09:12 CONCLUSION: No acute intracranial findings. Report was called by [Jenny to Dr. De Paz at 0924 hours]. Head CTA 03/25/18 09:12 CONCLUSION: 1. Negative CT of the brain Report was called by [the above at 09 45]. Neck CTA 03/25/18 09:12 CONCLUSION: Negative CTA Carotid. Chest X-Ray 03/25/18 09:15 CONCLUSION: Diminished lung volumes. Diffuse interstitial prominence and small left base alveolar infiltrate CT CAD 03/25/18 09:16 CONCLUSION: Physiological brain perfusion parameters with RAPID analysis as above. The decision for consideration of therapy is multi factorial and multi disciplinary relying on subjective and objective clinical data. This data is not construed or intended to be the sole determinant of treatment eligibility. Discharge Plan Discharge Disposition Patient Disposition: ED Admit(ED Internal Use Only) Discharge Order Discharge Orders: ED Use Only Admit Order (Routine); Ordered 03/25/18 Ordered By: Willi De Paz Discharge Details Diagnosis: Acute cerebrovascular accident (CVA) Physicians Team ED Provider: Willi De Paz Primary Care Provider: Analy Hernandez Attending Provider: Emre Morgan Other Providers: Stefani Mcmahon Vincent G Discharge Interventions Interventions: Vital Signs Last Done: 03/25/18 14:15 ED Discharge Assessment Last Done: 03/25/18 14:24 Status ED Status: Admitted Observation Patient
[2018-03-25] MEDS: Sod Chloride 0.9% Inj 1,000 ML IV.CONT SCH (09:35)
--- NOTE | 2018-03-25 09:47 | CT ---
EXAM DATE: 03/25/2018 9:43 AM EST AGE/SEX: 77 years / Male INDICATIONS: Stroke alert, left sided weakness and numbness. Slurred speech. CLINICAL DATA: This is the patient's initial encounter. Patient reports that signs and symptoms have been present for 1 day and indicates a pain score of Nonresponsive. MEDICAL/SURGICAL HISTORY: Non-responsive. Non-responsive. RADIATION DOSE: 314.22 CTDI (mGy) COMPARISON: [facility], CT STROKE ALERT HEAD WO CON, 03/25/2018. . TECHNIQUE: CT of the head after intravenous administration of 45 ml Visipaque 320 (iodixanol) nonio femi water-soluble contrast as a single exam dose. Using automated exposure control and adjustment of the mA and/or kV according to patient size, radiation dose was kept as low as reasonably achievable to obtain optimal diagnostic quality images. DICOM format image data is available electronically for review and comparison. FINDINGS: 1. CBF (<30%) Volume (ml): 0 2. Perfusion (Tmax>6.0s) Volume (ml): 5 3. Mismatch Volume (ml) (Tmax>6.0 - CBF): 5 CONCLUSION: Physiological brain perfusion parameters with RAPID analysis as above. The decision for consideration of therapy is multi factorial and multi disciplinary relying on subjec tive and objective clinical data. This data is not construed or intended to be the sole determinant of treatment eligibility. Electronically signed by: Jevon Alvarado MD Board Certified Radiologist 03/25/2018 9:46 AM EST
[2018-03-25 09:48] LABS: Activated Partial Thrombo Time 27.5 sec (23.4-31.7); INR 1.1 Ratio
--- NOTE | 2018-03-25 09:51 | CT ---
EXAM DATE: 03/25/2018 9:47 AM EST AGE/SEX: 77 years / Male INDICATIONS: Stroke alert, left sided weakness and numbness. Slurred speech. CLINICAL DATA: This is the patient's initial encounter. Patient reports that signs and symptoms have been present for 1 day and indicates a pain score of Nonresponsive. MEDICAL/SURGICAL HISTORY: Non-responsive. Non-responsive. RADIATION DOSE: 28.20 CTDI (mGy) ; Combined studies COMPARISON: No prior exams available for comparison. TECHNIQUE: Volumetric scanning was performed using a multi-row detector CT scanner during bolus infu kendrick of 55 ml Visipaque 320 (iodixanol) nonionic water-soluble contrast as a cumulative dose for mul tiple exams. The data was post processed with a variety of visualization algorithms including full volume maximum intensity projection, multi-planar sliding thin slab reformation, curved planar reform ation, and surface rendering techniques. Using automated exposure control and adjustment of the mA a nd/or kV according to patient size, radiation dose was kept as low as reasonably achievable to obtain optimal diagnostic quality images. DICOM format image data is available electronically for review a nd comparison. FINDINGS: There is excellent visualization of the major intracranial arteries out to the second-order branch ve ssels. There is no evidence for aneurysm, vessel truncation or stenosis, and no evidence for vascula r malformation. CONCLUSION: 1. Negative CT of the brain Report was called by [the above at 09 45]. Electronically signed by: Michael Garcia MD Board Certified Radiologist 03/25/2018 9:50 AM EST
[2018-03-25 09:52] LABS: Troponin I 0.02 ng/mL (0.02-0.05)
--- NOTE | 2018-03-25 09:52 | XR ---
EXAM DATE: 03/25/2018 9:45 AM EST AGE/SEX: 77 years / Male INDICATIONS: Stroke Alert. Patient complains of shortness of breath. CLINICAL DATA: This is the patient's subsequent encounter. Patient reports that signs and symptoms h ave been present for 1 day and indicates a pain score of 0/10. MEDICAL/SURGICAL HISTORY: . Cerebrovascular disease. Cardiovascular disease Hypertension. . Ap pendectomy. [place] [facility] [place] . FINDINGS: Slight asymmetric elevation of the right diaphragm. Diminished lung volumes with mild vascular conges tion and interstitial prominence with mild focal basilar parenchymal opacity on the left which may be developing infiltrate. CONCLUSION: Diminished lung volumes. Diffuse interstitial prominence and small left base alveolar infiltrate Electronically signed by: Jevon Alvarado MD Board Certified Radiologist 03/25/2018 9:51 AM EST
--- NOTE | 2018-03-25 09:52 | CT ---
EXAM DATE: 03/25/2018 9:47 AM EST AGE/SEX: 77 years / Male INDICATIONS: Stroke alert, left sided weakness and numbness. Slurred speech. CLINICAL DATA: This is the patient's initial encounter. Patient reports that signs and symptoms have been present for 1 day and indicates a pain score of Nonresponsive. MEDICAL/SURGICAL HISTORY: Non-responsive. Non-responsive. RADIATION DOSE: 28.20 CTDI (mGy) ; Combined studies COMPARISON: No prior exams available for comparison. TECHNIQUE: Volumetric scanning was performed using a multirow detector CT scanner during bolus infus ion of 55 ml Visipaque 320 (iodixanol) nonionic water-soluble contrast as a cumulative dose for mult iple exams. The data was postprocessed with a variety of visualization algorithms including full-vo lume maximum intensity projection, multiplanar sliding thin-slab reformation, curved-planar reformati on, and surface-rendering techniques. Using automated exposure control and adjustment of the mA and/ or kV according to patient size, radiation dose was kept as low as reasonably achievable to obtain op timal diagnostic quality images. DICOM format image data is available electronically for review and comparison. Percent stenosis is calculated using the diameter of the stenotic region over the diameter of the nor mal distal internal carotid artery. FINDINGS: Aortic Arch: There is a three-vessel origin of the great vessels from the aorta. No evidence of ost ial narrowing Right Carotid: The common carotid artery is intact. The carotid bulb has a normal configuration wit hout ulceration or narrowing. The internal carotid artery lumen is smooth without stenosis. The ext ernal carotid artery is intact. Left Carotid: The common carotid artery is intact. The carotid bulb has a normal configuration with out ulceration or narrowing. The internal carotid artery lumen is smooth without stenosis. The exte rnal carotid artery is intact. Vertebrals: The vertebral arteries have a symmetric diameter. No stenotic lesions are seen. CONCLUSION: Negative CTA Carotid. Electronically signed by: Jevon Alvarado MD Board Certified Radiologist 03/25/2018 9:50 AM EST
[2018-03-25 10:16] LABS: Bilirubin,Urine Negative (Negative); Clarity,Urine Clear (Clear); Color,Urine Yellow (Yellw/Straw); Glucose,Urine (UA) 500 or Greater mg/dL (Negative); Hyaline Casts,Urine 3 /lpf (0-3); Leukocyte Esterase,Urine Negative (Negative); Nitrite,Urine Negative (Negative); Specific Gravity,Urine 1.031 (1.002-1.035); Squamous Epithelial Cell,Urine <1 /hpf (0-5)
[2018-03-25] MEDS ORDERED: Dextrose 50% in Water 50 ML Vial IV.PUSH PRN (12:04)
[2018-03-25] MEDS ORDERED: Acetaminophen 325 MG Tablet PO PRN (12:06)
[2018-03-25 12:45] LABS: Albumin 3.9 g/dL (3.4-5.0); Anion Gap 10 meq/L (5-15); Aspartate Aminotransferase 43 U/L (15-37); Blood Urea Nitrogen 23 mg/dL (7-18); Calcium 9.7 mg/dL (8.5-10.1); Carbon Dioxide 25.5 meq/L (21.0-32.0); Chloride 103 meq/L (98-107); Glomerular Filtration Rate 34 mL/min (>89); Glucose,Random 347 mg/dL (74-106); Potassium 3.6 meq/L (3.5-5.1); Sodium 138 meq/L (136-145)
[2018-03-25 12:46] LABS: Alanine Aminotransferase 44 U/L (12-78)
[2018-03-25 12:48] LABS: Alkaline Phosphatase 69 U/L (45-117); Total Protein 7.2 g/dL (6.4-8.2)
--- NOTE | 2018-03-25 13:55 | MB ---
cc: Stefani Mcmahon MD DATE: 03/25/2018 REASON FOR CONSULTATION: Stroke alert. Left-sided symptoms. HISTORY OF PRESENT ILLNESS: The patient is a 77-year-old man who started experiencing onset of numbness on left side of the head, arm, slurring of speech, some left leg weakness that started an hour prior to arrival around 8 o'clock in the morning. He has a history of stroke x2 in 2006, had surgery for PFO, found to have paroxysmal atrial fibrillation and placed on Eliquis 5 mg twice a day along with a baby aspirin. 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 Ramiro Martinez. He also has a history of hypertension, diabetes, hyperlipidemia. The patient's numbness and weakness has resolved. The patient was not deemed to be a candidate for TPA due to being on anticoagulation. PAST MEDICAL HISTORY: As stated. PAST SURGICAL HISTORY: Appendectomy, cataract, and PFO closure. SOCIAL HISTORY: Nonsmoker, rarely drinks HOME MEDICATIONS: 1. Amlodipine. 2. Eliquis. 3. Baby aspirin. 4. Atenolol. 5. Diltiazem. 6. Bydureon. 7. Fenofibrate. 8. Hydrochlorothiazide. 9. Losartan. 10. Pravastatin. 11. Terazosin. 12. Doxepin. PHYSICAL EXAMINATION: VITAL SIGNS: Temperature not checked, pulse 58, respiratory rate 20, blood pressure 149/65. NECK: Supple. No appreciable carotid bruits. HEART: Currently is regular. GENERAL: He is awake and alert. Speech is slightly slurred. Pupils reactive. Visual fierro are full. His face is symmetrical otherwise. Tongue midline. Facial sensation normal now. NEUROLOGIC: Motor: I do not appreciate any drift or any leg lag. Cerebellar testing normal. DTRs 1+. Toes withdraw. Gait is withheld. He is at rest currently. LABORATORY DATA: CBC is unremarkable. Coag panel was normal. Chemistry: Potassium was a little low at 3.5 but then rechecked at 3.6, BUN 23, creatinine 1.92, GFR 34, glucose 330. Troponin was normal. Urinalysis was unremarkable. He had a CT perfusion that was unremarkable. CTA [place]. Carotids were unremarkable for intracranial disease and a noncontrast CT did not show anything acute. IMPRESSION: Status post left-sided symptoms consistent with stroke versus transient ischemic attack. Seems to still have some minor speech issues, very minimal if at all appreciable. He has a history of paroxysmal atrial fibrillation, currently on Eliquis as well as a baby aspirin. Seems to have failed therapy, although it only was started 1 week ago. He does have, I did not mention, a loop recorder. I would recommend if possible doing an MRI of the brain to better delineate if there is any diffusion weighted abnormalities consistent with an acute infarct and if so highly recommend that Eliquis be changed to another anticoagulant. Would also consult Dr. Martinez and make sure that he is in agreement with our management. Have PT, OT, speech therapy see him and if stable, likely discharge planning in 24 hours. MD KATHLEEN Hartman/eugenio , 01:26 PM , 01:44 PM
--- NOTE | 2018-03-25 14:04 | P.HP ---
History of Present Illness Primary Care Physician: Analy Forbes MD, R3 Chief Complaint: Left facial numbness and pressure History of Present Illness: 77-year-old man with a past medical history of CVA x2, followed by PFO closure in 2017 and currently on Eliquis secondary to atrial fibrillation was brought to the ED this morning for evaluation of an acute onset of left facial numbness and pressure associated with slurred speech and left lower estimated weakness. Patient reported that left facial pressure lasted only for a few seconds however the numbness continued for very long time, but resolved after admission in the ED. Stroke alert was called, and neurology was consulted. Initial imaging studies were all unremarkable. Patient denies any chest pain or shortness of breath. Case was discussed with Dr. Dong, loom changeover operator who has been consulted to see the patient - Diagnosis (1) TIA (transient ischemic attack) Review of Systems All other systems reviewed negative except as stated in HPI [facility] - History History Provided By: Patient, Family Member - Medical History Medical History: Medical History (Last Reviewed 03/25/18 @ 13:34 by Omari Wayne) CVA (cerebral vascular accident) Diabetes Hypertension MVP (mitral valve prolapse) Sciatica - Surgical History Surgical History: Surgical History (Last Reviewed 03/25/18 @ 13:34 by Omari Wayne) History of appendectomy Hx of cataract surgery - Family History Family History: Family History (Last Updated 03/25/18 @ 13:58 by Emre Morgan MD) Other CAD (coronary artery disease) - Tobacco History Second Hand Smoke Exposure: No Tobacco Use In Past 30 Days: No Smoking Status: Never smoker - Alcohol History How Often Do You Have a Drink Containing Alcohol: Monthly or less - Substance Use History Substance History: No History of Abuse - Travel History Recent Travel in the [place] Within the Last 8 Weeks: No Recent Travel Out of the Country Within the Last 8 Weeks: No - Immunization History Tetanus Immunization: <5 Years Medications and Allergies Active Medications: Active Medications Acetaminophen (Tylenol) 650 mg PO Q4H PRN PRN Reason: Temp > 100.4 Dextrose (D50w Vial) 50 ml IV.PUSH UNSCH PRN PRN Reason: PER HYPOGLYCEMIA PROTOCOL Glucagon (Glucagon Inj) 1 mg OTHER UNSCH PRN PRN Reason: for Hypoglycemia Protocol Sodium Chloride (Ns Inj) 1,000 mls @ 70 mls/hr IV.CONT .[id number] [facility] Last Admin: 03/25/18 09:35 Dose: 70 mls/hr Insulin Aspart (Novolog Insulin Correctional Sugar Inj) 0 unit SQ ACHS AR[place]OLD; Protocol Ondansetron HCl (Zofran Inj) 4 mg IV.PUSH Q6H PRN PRN Reason: NAUSEA OR VOMITING Sennosides (Senokot) 17.2 mg PO Q12H PRN PRN Reason: Moderate Constipation Sodium Chloride (Ns Flush) 2 ml IV.FLUSH BID AR[place]OLD Sodium Chloride (Ns Flush) 2 ml IV.FLUSH PRN PRN PRN Reason: FLUSH AFTER USING IV ACCESS Allergies Allergy/AdvReac Type Severity Reaction Status Date / Time codeine Allergy Severe Rash Verified 03/25/18 09:28 verapamil Allergy Severe causes Verified 03/25/18 09:28 ileus metformin AdvReac Severe Dehydration Verified 03/25/18 09:28 morphine AdvReac Severe Constipatio Verified 03/25/18 09:28 n Home Medications Medication Instructions Recorded Confirmed Type amlodipine 10 mg PO DAILY 12/23/17 03/25/18 History aspirin 81 mg PO DAILY 12/23/17 03/25/18 History atenolol 1 tab PO DAILY 12/23/17 03/25/18 History exenatide microspheres [Bydureon] 2 mg SUBCUT Q7D 12/23/17 03/25/18 History fenofibrate 160 mg PO EVERY OTHER DAY 12/23/17 03/25/18 History terazosin 5 mg PO DAILY 12/23/17 03/25/18 History apixaban [Eliquis] 5 mg PO DAILY 03/25/18 03/25/18 History diltiazem HCl 240 mg PO DAILY 03/25/18 03/25/18 History hydrochlorothiazide 25 mg PO DAILY 03/25/18 03/25/18 History losartan 100 mg PO HS 03/25/18 03/25/18 History pravastatin 40 mg PO HS 03/25/18 03/25/18 History Exam Vital signs: Vital Signs 03/25/18 09:03 03/25/18 09:04 03/25/18 09:15 Pulse Rate 65 59 L Respiratory Rate 18 16 Blood Pressure 154/64 H 156/69 H Pulse Oximetry 96 96 96 03/25/18 09:30 03/25/18 09:45 03/25/18 10:00 Pulse Rate 62 59 L 60 Respiratory Rate 18 21 21 Blood Pressure 138/62 148/63 H 135/65 Pulse Oximetry 97 98 96 03/25/18 11:00 Pulse Rate 58 L Respiratory Rate 20 Blood Pressure 149/65 H Pulse Oximetry Intake & Output 03/24/18 03/25/18 03/25/18 18:59 06:59 18:59 Weight 94.4 kg Narrative: GENERAL: NAD SKIN: Warm and dry. HEAD: Atraumatic. Normocephalic. EYES: Pupils equal and round. No scleral icterus. No injection or drainage. ENT: No nasal bleeding or discharge. Mucous membranes pink and moist. NECK: Trachea midline. No JVD. CARDIOVASCULAR: Regular rate and rhythm. RESPIRATORY: No accessory muscle use. Clear to auscultation. Breath sounds equal bilaterally. GASTROINTESTINAL: Abdomen soft, non-tender, nondistended. Hepatic and splenic margins not palpable. MUSCULOSKELETAL: Extremities without clubbing, cyanosis, or edema. No obvious deformities. NEUROLOGICAL: Awake and alert. No obvious cranial nerve deficits. Motor grossly within normal limits. Five out of 5 muscle strength in the arms and legs. Normal speech. PSYCHIATRIC: Appropriate mood and affect; insight and judgment normal. Results - Labs CBC & Chem 7: 03/25/18 09:07 03/25/18 09:07 Labs: Laboratory Results - last 24 hr 03/25/18 03/25/18 03/25/18 09:07 09:07 09:07 WBC 6.8 RBC 5.03 Hgb 14.4 POC Hgb (Calc) 14.3 Hct 42.2 POC Hct 42.0 MCV 83.8 MCH 28.7 MCHC 34.2 RDW 14.6 Plt Count 277 MPV 7.8 Neut % (Auto) 63.5 Lymph % (Auto) 27.1 [place] % (Auto) 7.0 Eos % (Auto) 2.0 Baso % (Auto) 0.4 Neut # (Auto) 4.3 Lymph # (Auto) 1.8 [place] # (Auto) 0.5 Eos # (Auto) 0.1 Baso # (Auto) 0.0 WBC Differential . Differential Comment Auto diff final PT 11.0 INR 1.1 APTT 27.5 Fibrinogen 291 POC Sodium 139 Sodium POC Potassium 3.5 L Potassium POC Chloride 100 L Chloride Carbon Dioxide Anion Gap POC BUN 22 H BUN Creatinine POC Creatinine 1.7 H Estimated GFR POC Glucose 354 H Random Glucose Calcium Total Bilirubin AST ALT Alkaline Phosphatase Total Creatine Kinase 127 Troponin I 0.02 Total Protein Albumin Urine Color Urine Clarity Urine pH Ur Specific [place] Urine Protein Urine Glucose (UA) Urine Ketones Urine Occult Blood Urine Nitrate Urine Bilirubin Urine Urobilinogen Ur Leukocyte Esterase Urine RBC Urine WBC Ur Squamous Epith Cells Hyaline Casts Micro UA Comment Ur Microscopic Review Urine Culture Comments Blood Type Antibody Screen 03/25/18 03/25/18 03/25/18 09:07 09:07 09:09 WBC RBC Hgb POC Hgb (Calc) Hct POC Hct MCV MCH MCHC RDW Plt Count MPV Neut % (Auto) Lymph % (Auto) [place] % (Auto) Eos % (Auto) Baso % (Auto) Neut # (Auto) Lymph # (Auto) [place] # (Auto) Eos # (Auto) Baso # (Auto) WBC Differential Differential Comment PT INR APTT Fibrinogen POC Sodium Sodium 138 POC Potassium Potassium 3.6 POC Chloride Chloride 103 Carbon Dioxide 25.5 Anion Gap 10 POC BUN BUN 23 H Creatinine 1.92 H POC Creatinine Estimated GFR 34 L POC Glucose 330 H Random Glucose 347 H Calcium 9.7 Total Bilirubin 0.8 AST 43 H ALT 44 Alkaline Phosphatase 69 Total Creatine Kinase Troponin I Total Protein 7.2 Albumin 3.9 Urine Color Urine Clarity Urine pH Ur Specific [place] Urine Protein Urine Glucose (UA) Urine Ketones Urine Occult Blood Urine Nitrate Urine Bilirubin Urine Urobilinogen Ur Leukocyte Esterase Urine RBC Urine WBC Ur Squamous Epith Cells Hyaline Casts Micro UA Comment Ur Microscopic Review Urine Culture Comments Blood Type O Positive Antibody Screen Negative 03/25/18 10:05 WBC RBC Hgb POC Hgb (Calc) Hct POC Hct MCV MCH MCHC RDW Plt Count MPV Neut % (Auto) Lymph % (Auto) [place] % (Auto) Eos % (Auto) Baso % (Auto) Neut # (Auto) Lymph # (Auto) [place] # (Auto) Eos # (Auto) Baso # (Auto) WBC Differential Differential Comment PT INR APTT Fibrinogen POC Sodium Sodium POC Potassium Potassium POC Chloride Chloride Carbon Dioxide Anion Gap POC BUN BUN Creatinine POC Creatinine Estimated GFR POC Glucose Random Glucose Calcium Total Bilirubin AST ALT Alkaline Phosphatase Total Creatine Kinase Troponin I Total Protein Albumin Urine Color Yellow Urine Clarity Clear Urine pH 6.0 Ur Specific [place] 1.031 Urine Protein Negative Urine Glucose (UA) 500 or greater Urine Ketones Negative Urine Occult Blood Negative Urine Nitrate Negative Urine Bilirubin Negative Urine Urobilinogen Less than 2 Ur Leukocyte Esterase Negative Urine RBC Less than 1 Urine WBC 1 Ur Squamous Epith Cells <1 Hyaline Casts 3 Micro UA Comment Cath-culture not ind Ur Microscopic Review Not Reportable Urine Culture Comments Cath-cult not ind Blood Type Antibody Screen - Imaging Impressions Head CT 03/25/18 09:12 CONCLUSION: No acute intracranial findings. Report was called by [[place] to Dr. De Paz at 0924 hours]. Head CTA 03/25/18 09:12 CONCLUSION: 1. Negative CT of the brain Report was called by [the above at 09 45]. Neck CTA 03/25/18 09:12 CONCLUSION: Negative CTA Carotid. Chest X-Ray 03/25/18 09:15 CONCLUSION: Diminished lung volumes. Diffuse interstitial prominence and small left base alveolar infiltrate CT CAD 03/25/18 09:16 CONCLUSION: Physiological brain perfusion parameters with RAPID analysis as above. The decision for consideration of therapy is multi factorial and multi disciplinary relying on subjective and objective clinical data. This data is not construed or intended to be the sole determinant of treatment eligibility. Caprini VTE Risk Assessment Caprini VTE Risk Assessment: Moderate/High Risk (score >= 2) Caprini Risk Assessment Model: Point Value = 1 Point Value = 2 Point Value = 3 Point Value = 5 Age 41-60 Minor surgery BMI > 25 kg/m2 Swollen legs Varicose veins or History of unexplained or recurrent spontaneous Oral contraceptives or hormone replacement Sepsis (< 1 month) Serious lung disease, including pneumonia (< 1 month) Abnormal pulmonary function Acute myocardial infarction Congestive heart failure (< 1 month) History of inflammatory bowel disease Medical patient at bed rest Age 61-74 Arthroscopic surgery Major open surgery (> 45 min) Laparoscopic surgery (> 45 min) Malignancy Confined to bed (> 72 hours) Immobilizing plaster cast Central venous access Age >= 75 History of VTE Family history of VTE Factor V Leiden Prothrombin [id number] Lupus anticoagulant Anticardiolipin antibodies Elevated serum homocysteine Heparin-induced thrombocytopenia Other congenital or acquired thrombophilia Stroke (< 1 month) Elective arthroplasty Hip, pelvis, or leg fracture Acute spinal cord injury (< 1 month) Prophylaxis Regimen: Total Risk Factor Score Risk Level Prophylaxis Regimen 0-1 Low Early ambulation 2 Moderate Order ONE of the following: *Sequential Compression Device (SCD) *Heparin 5000 units SQ BID 3-4 Higher Order ONE of the following medications: *Heparin 5000 units SQ TID *Enoxaparin/Lovenox 40 mg SQ daily (WT < 150 kg, CrCl > 30 mL/min) *Enoxaparin/Lovenox 30 mg SQ daily (WT < 150 kg, CrCl > 10-29 mL/min) *Enoxaparin/Lovenox 30 mg SQ BID (WT < 150 kg, CrCl > 30 mL/min) AND/OR *Sequential Compression Device (SCD) 5 or more Highest Order ONE of the following medications: *Heparin 5000 units SQ TID (Preferred with Epidurals) *Enoxaparin/Lovenox 40 mg SQ daily (WT < 150 kg, CrCl > 30 mL/min) *Enoxaparin/Lovenox 30 mg SQ daily (WT < 150 kg, CrCl > 10-29 mL/min) *Enoxaparin/Lovenox 30 mg SQ BID (WT < 150 kg, CrCl > 30 mL/min) AND *Sequential Compression Device (SCD) Assessment and Plan - Assessment (1) TIA (transient ischemic attack) Code(s): G45.9 - Transient cerebral ischemic attack, unspecified Status: Acute - Plan 77-year-old man with TIA rule out CVA Start treatment per ischemic stroke protocol Allow for permissive hypertension Head CT 03/25/18 09:12 No acute intracranial findings. Head CTA 03/25/18 09:[address] of the brain Neck CTA 03/25/18 09:12 Negative CTA Carotid. Neurology has been consulted Resume aspirin, statin Secondary to history of PFO closure and currently on Eliquis secondary to A. fib, will consult cardiology Check brain MRI, EEG PT/OT/speech therapy consulted Atrial fibrillation on chronic oral anticoagulation Eliquis Consult cardiology Resume beta-fanny, aspirin Hypertension Allow for permissive hypertension Resume oral antihypertensive medications March 26, 2018 Hyperglycemia Check hemoglobin A1c
[2018-03-25] MEDS ORDERED: Metoprolol Tartrate 25 MG Tablet PO ONE (15:10)
[2018-03-25] MEDS ORDERED: Chlorhexidine Gluconate 2% 1 Pack (2 Cloths) TOPICAL ONE (15:10)
--- NOTE | 2018-03-25 15:10 | MR ---
EXAM DATE: 03/25/2018 3:07 PM EST AGE/SEX: 77 years / Male INDICATIONS: Left sided weakness. CLINICAL DATA: This is the patient's initial encounter. Patient reports that signs and symptoms have been present for 1 day and indicates a pain score of 0/10. MEDICAL/SURGICAL HISTORY: Hypertension. Diabetes mellitus type II. CVA x3 Appendectomy. Loop recorder placement. Wrist ORIF. COMPARISON: No prior exams available for comparison. TECHNIQUE: Multiplanar, multisequence examination of the brain was performed without contrast. FINDINGS: Cerebrum: The ventricles are normal for age. No evidence of midline shift, mass lesion, hemorrhage or acute infarction. No extraaxial fluid collections are seen. The pituitary gland and suprasellar cistern are normal in configuration. White Matter: Minimal periventricular white matter changes. Posterior Fossa: The cerebellum and brainstem are intact. The 4th ventricle is midline. The cerebel lopontine angle is unremarkable. The cerebellar tonsils are normal in position. Diffusion Imaging: No focal areas of restricted diffusion are seen. No evidence of acute infarction . Extracranial: The visualized portions of the orbits and paranasal sinuses are unremarkable. CONCLUSION: 1. Minimal periventricular white matter changes, otherwise negative. 2. There is no restricted diffusion to suggest an acute ischemic event by MRI. Electronically signed by: Michael Garcia MD Board Certified Radiologist 03/25/2018 3:09 PM EST
[2018-03-25] MEDS ORDERED: Lidocaine PF 1% Inj 5 ML Syringe OTHER ONE (15:25)
[2018-03-25] MEDS ORDERED: Sodium Chlor 0.9% Inj 500 ML IV.SIG SCH (15:30)
[2018-03-25] MEDS ORDERED: Insulin NovoLOG Aspart Correctional Sugar Inj SQ SCH (17:00)
[2018-03-25] MEDS: Insulin NovoLOG Aspart Correctional Sugar Inj SQ SCH ×2 (17:46→22:57)
--- NOTE | 2018-03-25 18:19 | ECHRPT ---
Indication: CVA/TIA CONCLUSIONS The left ventricular systolic function is normal with an estimated ejection fraction in the range of 55-60%. Normal left atrial appendage size with no evidence of thrombus formation. An interatrial septal occluder closure device is present. There appears to be minimal inter-atrial shunt by aggitated saline through septal occluder closure d evice. Trace mitral valve regurgitation. Moderate aortic valve regurgitation. Eccentric aortic regurgitation jet directed at the mitral valve. BP: / HR: Rhythm: Technical Quality:Good Medications Complications Proc. Components Anesthesia at the bedside for sedation FINDINGS LEFT VENTRICLE Normal left ventricular size. The left ventricular systolic function is normal with an estimated ejection fraction in the range of 55-60%. No regional wall motion abnormalities are present. RIGHT VENTRICLE Grossly normal LEFT ATRIUM The left atrial size is normal. RIGHT ATRIUM The right atrial size is normal. ATRIAL APPENDAGES Normal left atrial appendage size with no evidence of thrombus formation. ATRIAL SEPTUM An interatrial septal occluder closure device is present. There appears to be inter-atrial shunt by aggitated saline through septal occluder closure device. AORTA The aortic root and proximal ascending aorta are normal in size on limited imaging. MITRAL VALVE Structurally normal mitral valve. Trace mitral valve regurgitation. No mitral valve stenosis. AORTIC VALVE Trileaflet aortic valve. Moderate aortic valve regurgitation. Eccentric aortic regurgitation jet directed at the mitral valve. No aortic valve stenosis. TRICUSPID VALVE Structurally normal tricuspid valve. No tricuspid regurgitation. No tricuspid valve stenosis. VESSELS The pulmonary valve is not well visualized. No pulmonary valve regurgitation. Antolin Dong DO (Electronically Signed) Final Date:25 March 2018 18:18
[2018-03-26] MEDS: Sod Chloride 0.9% Inj 1,000 ML IV.CONT SCH (01:56)
--- NOTE | 2018-03-26 02:36 | MB ---
cc: Antolin Dong DO DATE: 03/25/2018 REASON FOR CONSULTATION: TIA versus CVA. HISTORY OF PRESENT ILLNESS: Ritesh Traylor is a pleasant 77-year-old male who sees my partner, Dr. Martinez, in the office and presented to [facility] Emergency Room due to left facial numbness and pressure associated with slurred speech and left lower extremity weakness. The patient has a history of 2 CVAs back in 2017. At that time, he was found to have a PFO and this was closed endovascularly. He also had a loop recorder placed. Around 1-2 weeks ago, he was found to have atrial fibrillation on his loop recorder and started on Eliquis and continued on aspirin. This morning, he started noticing left facial pressure that lasts for a few seconds and then numbness across the left side of his face. Apparently, he had some slurred speech at the time. This is similar to when he has had his previous episodes. Because of this, he came to the emergency room. Neurology has been consulted and has seen the patient and deemed this a repeat ischemic event. PAST MEDICAL HISTORY: 1. CVA x 2. 2. Diabetes. 3. Hypertension. 4. Mitral valve prolapse. 5. Sciatica. PAST SURGICAL HISTORY: 1. Appendectomy. 2. Cataract surgery. 3. ORIF right intra-articular distal radius fracture. 4. PFO closure (08/25/2016) with a 30 mm Amplatz device. 5. Loop recorder placement. ALLERGIES: 1. CODEINE. 2. VERAPAMIL. 3. METFORMIN. 4. MORPHINE. MEDICATIONS: 1. Bydureon 2 mg weekly. 2. Aspirin 81 mg daily. 3. Atenolol 50 mg daily. 4. Norvasc 10 mg daily. 5. Diazepam 5 mg t.i.d. as needed. 6. Fenofibrate 160 mg every other day. 7. Terazosin 5 mg daily. 8. Losartan 100 mg every night. 9. Pravastatin 40 mg every night. 10. Cardizem CD 240 mg daily. 11. Hydrochlorothiazide 25 mg daily. 12. Eliquis 5 mg daily. FAMILY HISTORY: Denies sudden cardiac within the family. SOCIAL HISTORY: Denies tobacco, alcohol or drug abuse. REVIEW OF SYSTEMS: Fourteen systems were reviewed including osteopathic. Pertinent positives and negatives above, otherwise negative. PHYSICAL EXAMINATION: VITAL SIGNS: Temperature 97.6, heart rate 58, blood pressure 149/65, respirations 20, pulse oximetry 96% on 2 liters. GENERAL: The patient appears well, in no acute distress, alert, awake and oriented x 3. HEENT: Extraocular muscles intact. Mucous membranes moist. NECK: Supple. No JVD at 45 degrees. No carotid bruits heard bilaterally. Carotid upstroke is brisk in nature. HEART: Regular rate and rhythm. Positive first and second heart sounds with no noted murmurs, gallops or rubs. LUNGS: Clear to auscultation bilaterally. No wheezes, rales or rhonchi. ABDOMEN: Soft, nontender, and nondistended. No organomegaly noted. EXTREMITIES: Show no clubbing, cyanosis or edema. Femoral and distal pulses are intact bilaterally. NEUROLOGIC: No focal deficits. SKIN: Warm, dry and intact. OSTEOPATHIC: No kyphoscoliosis, lordosis or paraspinal tender points. LABORATORY DATA: Hemoglobin 14.4, hematocrit 42.2, platelets 277. Potassium 3.5, BUN 22, creatinine 1.92. Troponin 0.02. Electrocardiogram (03/25/2018 at 0909 hours): Sinus rhythm, right bundle branch block, first-degree AV block. IMPRESSIONS: 1. Transient ischemic attack with history of cerebrovascular accident x 2. 2. Previous patent foramen ovale, status post closure (08/25/2016) with a 30 mm Amplatzer device. 3. Atrial fibrillation, on Eliquis. 4. Hypertension. 5. Hyperlipidemia. 6. Diabetes mellitus. RECOMMENDATIONS: 1. Mr. Traylor presented with a similar event to his previous 2 CVAs and has been seen by neurology. 2. It appears that his neurological deficit has resolved. 3. He is currently on aspirin 81 mg as well as Eliquis and has not missed any doses of Eliquis since starting a week ago. 4. During the studies for Eliquis, there was still a possibility of having a stroke while on anticoagulation. As far as I know, there is no data that shows switching medications at this time with decrease his risk, but consideration could be made for switching him to Coumadin therapy or increasing his aspirin to 325 mg. 5. It is also a possibility that since he has had atrial fibrillation recently, he could have a left atrial thrombus that is dislodged while on Eliquis. 6. We will plan to do a transesophageal echocardiogram to evaluate his left atrial appendage, PFO occluder, and other sources of possible cardioembolic phenomenon. 7. Risks, benefits and alternatives have been discussed with him and he consents. 8. As far as an MRI goes, his PFO occluder and loop recorder are MRI compatible and he may proceed with this per neurology's recommendations. Thank you for allowing me to see Ritesh Traylor. If there are any questions, please do not hesitate to call. Antolin Dong DO VGP/rw , 01:28 AM , 01:42 AM
[2018-03-26 07:54] VITALS: BP 174/74; PULSE 68; RESP 18; TEMP 97.5; O2SAT 96
[2018-03-26] MEDS: Insulin NovoLOG Aspart Correctional Sugar Inj SQ SCH (08:58)
[2018-03-26] MEDS ORDERED: Atenolol 50 MG Tablet PO SCH (09:00)
[2018-03-26] MEDS ORDERED: dilTIAZem CD 240 MG Capsule PO SCH (09:00)
[2018-03-26 09:49] LABS: Chol/HDL Ratio 3.29 Ratio; HDL Cholesterol 31.3 mg/dL (40.0-60.0)
--- NOTE | 2018-03-26 09:49 | P.PN ---
Subjective Interval history: Follow-up TIA March 26, 2018-patient seen and examined, reports improvement of left facial numbness and pressure. Brain MRI negative for acute infarct. JUAN unremarkable. Physical Exam Vital signs: Vital Signs 03/25/18 09:45 03/25/18 10:00 03/25/18 11:00 Temperature Pulse Rate 59 L 60 58 L Respiratory Rate 21 21 20 Blood Pressure 148/63 H 135/65 149/65 H Pulse Oximetry 98 96 03/25/18 14:15 03/25/18 17:23 03/25/18 20:00 Temperature 97.6 F 98.1 F Pulse Rate 62 59 L 63 Respiratory Rate 15 18 18 Blood Pressure 140/60 147/67 H 160/66 H Pulse Oximetry 96 94 L 03/25/18 21:15 03/26/18 00:20 03/26/18 05:15 Temperature 98.1 F 97.9 F 98.0 F Pulse Rate 65 66 67 Respiratory Rate 18 20 19 Blood Pressure 158/72 H 153/72 H 167/72 H Pulse Oximetry 95 96 95 03/26/18 07:30 Temperature 97.5 F L Pulse Rate 68 Respiratory Rate 18 Blood Pressure 174/74 H Pulse Oximetry 96 Intake & Output 03/25/18 03/26/18 03/26/18 18:59 06:59 18:59 Intake Total 1000 / 1000 Output Total 1974 Balance -1974 1000 / 1000 Weight 90.045 kg 86.7 kg Intake: IV 1000 / 1000 NS Inj 1,000 ML @ 70 mls/hr IV. 1000 / 1000 CONT .[id number] [facility] Rx#:[id number] Output: Urine 1974 Other: # Voids 4 # Incontinent Voids 2 Date of Last Bowel Movement 03/24/18 03/25/18 # Bowel Movements 2 Weight On Admission 90.045 kg Narrative: GENERAL: NAD SKIN: Warm and dry. HEAD: Atraumatic. Normocephalic. EYES: Pupils equal and round. No scleral icterus. No injection or drainage. ENT: No nasal bleeding or discharge. Mucous membranes pink and moist. NECK: Trachea midline. No JVD. CARDIOVASCULAR: Regular rate and rhythm. RESPIRATORY: No accessory muscle use. Clear to auscultation. Breath sounds equal bilaterally. GASTROINTESTINAL: Abdomen soft, non-tender, nondistended. Hepatic and splenic margins not palpable. MUSCULOSKELETAL: Extremities without clubbing, cyanosis, or edema. No obvious deformities. NEUROLOGICAL: Awake and alert. No obvious cranial nerve deficits. Motor grossly within normal limits. Five out of 5 muscle strength in the arms and legs. Normal speech. PSYCHIATRIC: Appropriate mood and affect; insight and judgment normal. Results - Labs CBC & Chem 7: 03/25/18 09:07 03/25/18 09:07 Laboratory Results - last 24 hr 03/25/18 03/25/18 03/25/18 09:07 09:07 09:07 PT 11.0 INR 1.1 APTT 27.5 Fibrinogen 291 Sodium Potassium Chloride Carbon Dioxide Anion Gap BUN Creatinine Estimated GFR POC Glucose Random Glucose Calcium Total Bilirubin AST ALT Alkaline Phosphatase Total Creatine Kinase 127 Troponin I 0.02 Total Protein Albumin Urine Color Urine Clarity Urine pH Ur Specific [place] Urine Protein Urine Glucose (UA) Urine Ketones Urine Occult Blood Urine Nitrate Urine Bilirubin Urine Urobilinogen Ur Leukocyte Esterase Urine RBC Urine WBC Ur Squamous Epith Cells Hyaline Casts Micro UA Comment Ur Microscopic Review Urine Culture Comments Blood Type O Positive Antibody Screen Negative 03/25/18 03/25/18 03/25/18 09:07 10:05 17:36 PT INR APTT Fibrinogen Sodium 138 Potassium 3.6 Chloride 103 Carbon Dioxide 25.5 Anion Gap 10 BUN 23 H Creatinine 1.92 H Estimated GFR 34 L POC Glucose 112 H Random Glucose 347 H Calcium 9.7 Total Bilirubin 0.8 AST 43 H ALT 44 Alkaline Phosphatase 69 Total Creatine Kinase Troponin I Total Protein 7.2 Albumin 3.9 Urine Color Yellow Urine Clarity Clear Urine pH 6.0 Ur Specific [place] 1.031 Urine Protein Negative Urine Glucose (UA) 500 or greater Urine Ketones Negative Urine Occult Blood Negative Urine Nitrate Negative Urine Bilirubin Negative Urine Urobilinogen Less than 2 Ur Leukocyte Esterase Negative Urine RBC Less than 1 Urine WBC 1 Ur Squamous Epith Cells <1 Hyaline Casts 3 Micro UA Comment Cath-culture not ind Ur Microscopic Review Not Reportable Urine Culture Comments Cath-cult not ind Blood Type Antibody Screen 03/25/18 03/26/18 22:50 08:55 PT INR APTT Fibrinogen Sodium Potassium Chloride Carbon Dioxide Anion Gap BUN Creatinine Estimated GFR POC Glucose 241 H 154 H Random Glucose Calcium Total Bilirubin AST ALT Alkaline Phosphatase Total Creatine Kinase Troponin I Total Protein Albumin Urine Color Urine Clarity Urine pH Ur Specific [place] Urine Protein Urine Glucose (UA) Urine Ketones Urine Occult Blood Urine Nitrate Urine Bilirubin Urine Urobilinogen Ur Leukocyte Esterase Urine RBC Urine WBC Ur Squamous Epith Cells Hyaline Casts Micro UA Comment Ur Microscopic Review Urine Culture Comments Blood Type Antibody Screen - Imaging Impressions Head MRI 03/25/18 00:00 CONCLUSION: 1. Minimal periventricular white matter changes, otherwise negative. 2. There is no restricted diffusion to suggest an acute ischemic event by MRI. Head CTA 03/25/18 09:12 CONCLUSION: 1. Negative CT of the brain Report was called by [the above at 09 45]. Neck CTA 03/25/18 09:12 CONCLUSION: Negative CTA Carotid. Chest X-Ray 03/25/18 09:15 CONCLUSION: Diminished lung volumes. Diffuse interstitial prominence and small left base alveolar infiltrate CT CAD 03/25/18 09:16 CONCLUSION: Physiological brain perfusion parameters with RAPID analysis as above. The decision for consideration of therapy is multi factorial and multi disciplinary relying on subjective and objective clinical data. This data is not construed or intended to be the sole determinant of treatment eligibility. - Procedures none Assessment and Plan - Assessment (1) TIA (transient ischemic attack) Code(s): G45.9 - Transient cerebral ischemic attack, unspecified Status: Acute - Plan 77-year-old man with TIA treatment per ischemic stroke protocol d/c permissive hypertension Head CT 03/25/18 09:12 No acute intracranial findings. Head CTA 03/25/18 09:[address] of the brain Neck CTA 03/25/18 09:12 Negative CTA Carotid. Head MRI 03/25/18 00:00 1. Minimal periventricular white matter changes, otherwise negative. 2. There is no restricted diffusion to suggest an acute ischemic event by MRI. Appreciate input from neurology Increase aspirin to 325 mg daily, continue statin Appreciate input from cardiology secondary to patient with history of PFO, JUAN was performed and was unremarkable. Eliquis was resumed PT/OT/speech therapy consulted Atrial fibrillation on chronic oral anticoagulation Eliquis Appreciate input from cardiology JUAN was unremarkable Treatment with Eliquis, beta-fanny, aspirin Hypertension s/p permissive hypertension Continue oral antihypertensive medications Hyperglycemia Check hemoglobin A1c DVT prophylaxis: Eliquis Discharge patient to home Condition on discharge: Improved Regular Diet as tolerated Ad Mariela activity Rx written: see EMR Follow-up with primary care physician Neurology Cardiology
--- NOTE | 2018-03-26 11:48 | ECG ---
Date Performed: 03/25/2018 Time Performed: 09:09:19 PTAGE: 77 years EKG: SINUS BRADYCARDIA WITH FIRST DEGREE AV BLOCK RIGHT BUNDLE BRANCH BLOCK ABNORMAL ECG PREVIOUS TRACING : 08/24/2016 19.52 DOCTOR: Neal Matos Interpretating Date/Time 03/26/2018 11:44:17
[2018-03-26 23:26] LABS: Hemoglobin A1c 9.7 % (4.3-6.0)
[2018-03-27] MEDS ORDERED: Fenofibrate 145 MG Tablet PO SCH (09:00)
== END 2018-03-26 11:37 | disposition home or self-care (01) ==
LOC: NEPC 08:49 → NEDA 10:23 → INTOOBSV 10:23 → NEPFCDU 14:09 → N05 21:05
PROVIDERS: ADMIT Hospitalist; ATTEND Hospitalist
DX: G45.9 Transient cerebral ischemic attack, unspecified; I48.0 Paroxysmal atrial fibrillation; I34.1 Nonrheumatic mitral (valve) prolapse; I10 Essential (primary) hypertension; Z87.74 Personal history of (corrected) congenital malformations of heart and circulatory system; Z79.82 Long term (current) use of aspirin; E78.5 Hyperlipidemia, unspecified; R47.81 Slurred speech; Z86.73 Personal history of transient ischemic attack (TIA), and cerebral infarction without residual deficits; E11.65 Type 2 diabetes mellitus with hyperglycemia; Z79.01 Long term (current) use of anticoagulants; R53.1 Weakness; M54.30 Sciatica, unspecified side; Z79.899 Other long term (current) drug therapy; I08.0 Rheumatic disorders of both mitral and aortic valves
CPT/HCPCS: 0042T; 70450; 70496; 70498; 70551; 71010; 71045; 76497; 76499; 80048; 80053; 80061; 81001; 82550; 82948; 82962; 83036; 84484; 85025; 85384; 85610; 85730; 86850; 86900; 86901; 92522; 93005; 93312; 93320; 93325; 96360; 96361; 96372; 97162; 97166; 99285; G0378; G8987; G8988; G8999; G9186; J1815; J2704; J7030; Q9967